=== PATIENT | male | born 1995 | race African-American/Black ===

== ENCOUNTER 2023-06-12 09:58 | Outpatient (AMB) | payer OTHER, SELFPAY ==
--- NOTE | 2023-06-12 10:06 | A.OFFPC_ITS ---
Vital Signs 06/12/23 10:20 Height 5 ft 8 in BP 120/72 Blood Pressure Location Lt brachial Position Sitting Pulse 82 Pulse Source Pulse Oximeter Pulse Oximetry (%) 100 Oxygen Delivery Method Room Air Intake Visit Reasons: est care Intake Note: Patient is here as a new patient, and to get prescription refills. Allergies No Known Allergies Allergy (Verified 06/12/23 10:07) Tobacco use date assessed: 06/12/23 Dental Screening Dental Screen Date: 06/12/23 Did you have a dental visit in the last 12 months?: Yes Did you have a dental problem in the last 6 months where you did not have access to dental care?: No Was dental information given to patient?: Patient has dentist HPI est care HPI Details New patient Prior PCP:?Angelina Soto in [place] Last office visit/CPE: 6 mos, 1 year since CPE Acute issue(s): Sleep Study via [facility] and told it was positive Migraines, more than daily. Only OTC meds. Eczema PMHx: Depression with anxiety, Back pain, migraines, Sleep apnea SurgHx: L achilles tendon rupture/repair. January 2023 FHx: Dad: DM. Mom: Arthritis. SocHx: Nonsmoker. EtOH 4x a week, 2-3 drinks. No drugs. PFSH Medical History (Updated 06/12/23 @ 11:00 by Iban Schuler) Sleep apnea Back pain Migraines Achilles tendon tear Anxiety Depression Surgical History (Updated 06/12/23 @ 10:13 by Melissa Reilly CMA) H/O Achilles tendon repair Family History (Updated 06/12/23 @ 10:15 by Melissa Reilly CMA) Mother Arthritis Father Diabetes Social History (Updated 06/12/23 @ 10:18 by Melissa Reilly CMA) Household Members: Family Housing: House Alcohol intake: current Patient Tobacco Use Status: Never used Tobacco e-Cigarette/Vaping Use: Never Used Special hari needs: Yes service: Yes Current occupational status: employed 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 1. Little interest or pleasure in doing things: more than half the days 2. Feeling down, depressed, or hopeless: not at all 3. Trouble falling or staying asleep, or sleeping too much: nearly every day 4. Feeling tired or having little energy: several days 5. Poor appetite or overeating: several days 6. Feeling bad about yourself - or that you are a failure or have let yourself or your family down: not at all 7. Trouble concentrating on things, such as reading the newspaper or watching television: more than half the days 8. Moving or speaking so slowly that other people could have noticed. Or the opposite - being so fidgety or restless that you have been moving around a lot more than usual: several days 9. Thoughts that you would be better off or of hurting yourself in some way: not at all Total score: 10 Depression Screening Interpretation: Positive Depression Screening Follow-up: Declines treatment (We?will?readdress?at?his?next?visit) Depression Screening Done: Yes 27658 - PHQ-9 Billing: Yes Source: Developed by Drs. Tejinder Li, Mariah Rosario, Yogesh Michael and colleagues, with an educational alyssa from [employer]. Thrive Questionnaire I am a: Patient What is your living situation today?: I have a steady place to live Within the past 12 months, did the food you bought not last and you didn't have the money to get more?: Never true Within the past 12 months, did you worry whether your food would run out before you got money to buy more?: Never true Do you have trouble paying for medicines?: No Do you have trouble getting transportation to medical appointments?: No Do you have trouble paying your heating and electricity bill?: No Do you have trouble taking care of your child, family member or friend?: No Do you have trouble with day-to-day activities such as bathing, preparing meals, shopping, managing finances, etc.?: No Are you currently unemployed and looking for a job?: No Are you interested in more education?: No AUDIT C Alcohol Use Questionnaire (AUDIT-C) 1. How often do you have a drink containing alcohol?: 4 or more times a week 2. How many drinks containing alcohol do you have on a typical day when you are drinking?: 3 or 4 3. How often do you have six or more drinks on one occasion?: Less than monthly Total Score: 6 ROSHNI-7 AMB Questionnaire ROSHNI-7 Date ROSHNI - 7 assessed: 06/12/23 Feeling nervous, anxious, or on edge: 2 = More than half the days Not being able to stop or control worryin = Several days Worrying too much about different things: 2 = More than half the days Trouble relaxin = More than half the days Being so restless that it is hard to sit still: 1 = Several days Becoming easily annoyed or irritable: 3 = Nearly every day Feeling afraid as if something awful might happen: 0 = Not at all Total ROSHNI-7 score (0-4 normal; 5-9 mild; 10-14 moderate; 15-21 severe): 11 Source: Developed by Drs. Tejinder Li, Mariah Rosario, Yogesh Michael and colleagues, with an educational alysas from [employer]. ROSHNI-7 Assessment Billing ROSHNI-7 Assessment Tool: ROSHNI-7 Assessment 82537 Review of Systems Const Denies chills, Denies fatigue, Denies fever(s), Denies headache(s) and Denies weakness ENT Denies dizziness and Denies headache(s) Card Denies chest pain, Denies lightheadedness, Denies dyspnea and Denies other (Palpitations) Resp Denies cough, Denies dyspnea, Denies wheezing and Denies other ( shortness of breath) Musc Denies numbness and Denies tingling Neuro Denies dizziness, Denies headache(s), Denies numbness, Denies tingling, Denies paresthesias and Denies weakness Psych Reports anxiety and Reports depression Endo Denies fatigue Aller/Immun Denies wheezing Physical exam (Primary Care) Vital Signs: Last Vital Signs Pulse 82 06/12/23 10:20 BP 120/72 06/12/23 10:20 Pulse Ox 100 06/12/23 10:20 Oxygen Delivery Method Room Air 06/12/23 10:20 Tobacco/Smoking Status: Tobacco use Status Tobacco use date assessed 06/12/23 06/12/23 10:11 Patient Tobacco Use Status Never used Tobacco 06/12/23 10:18 e-Cigarette/Vaping Use Never Used 06/12/23 10:18 PHQ-9: PHQ-9 Score PHQ-9: Total score 10 06/12/23 10:30 Depression Screening Interpretation: Positive Depression Screening Follow-up: Declines treatment (We?will?readdress?at?his?next?visit) Const General: no acute distress and well developed Nutritional Appearance: well nourished Orientation/consciousness: patient oriented x3 [facility]: Yes normocephalic and Yes atraumatic Eyes General: appearance normal, both eyes and all related structures Pupils: Equal, round and reactive pupils present EOM: EOMs intact bilaterally Resp Effort & Inspection: normal respiratory effort Auscultation: clear to auscultation bilaterally Cardio Rate: regular rate Rhythm: regular rhythm Heart sounds: S1 normal heart sound present, S2 normal heart sound present, no gallops, no murmurs and no rubs Skin Other: Rash on back of neck with mildly erythematous with a raised edge and mild scale Neuro General: patient oriented x3 and gait normal Cranial nerves: Yes Equal, round and reactive pupils present Psych Affect: normal affect Assessment and Plan Assessment & Plan (1) Depression with anxiety: Code(s): F41.8 - Other specified anxiety disorders Plan: Currently?appears?stable No?SI/HI Will?readdress?at?subsequent?visit (2) Back pain: Code(s): M54.9 - Dorsalgia, unspecified Plan: Currently?no?back?pain. Stable (3) Migraines: Code(s): G43.909 - Migraine, unspecified, not intractable, without status migrainosus Plan: Patient?is?getting?migraines?every?day?and?sometimes?more?than?once?per?day Trial?topiramate?and?will?give?him?a?script?for?sumatriptan?to?abort?migraine Also?advised?he?follow-up?with?an?thermoforming machine operator (4) Sleep apnea: Code(s): G47.30 - Sleep apnea, unspecified Plan: Patient?says?he?was?told?that?he?has?a[facility] Referred?to?Sleep?Medicine (5) Rash: Code(s): R21 - Rash and other nonspecific skin eruption Plan: Unclear?cause Advised?avoiding?excess?moisture?but?do?not?dry?out?skin Try?clotrimazole?betamethasone?and?I?have?referred?him?to?Dermatology He?can?cancel?dermatology?appointment?if?rash?resolved (6) Laboratory exam ordered as part of routine general medical examination: Code(s): Z00.00 - Encounter for general adult medical examination without abnormal findings Plan: Check?lab Orders: Orders Microalbumin, Random (w Creat) Today I10 - Essential (primary) hypertension Comprehensive [place]. Panel Fast Today Z00.00 - Encounter for general adult medical examination without abnormal findings Lipid Panel Today Z00.00 - Encounter for general adult medical examination without abnormal findings TSH reflex Free T4 Today Z00.00 - Encounter for general adult medical examination without abnormal findings UA and rflx microscopic Today Z00.00 - Encounter for general adult medical examination without abnormal findings Referrals Sleep Medicine Referral G47.30 - Sleep apnea, unspecified Dermatology Referral R21 - Rash and other nonspecific skin eruption Medications: New clotrimazole-betamethasone 1-0.05 % 1 appl topical BID 2 weeks 45 grams 1RF sumatriptan succinate take 1 tab at onset of headache; if no relief may repeat 1 tab after at least 2 hrs; max = 4 tabs/24 hr PO 12 tabs 1RF 28 days topiramate 50 mg PO DAILY 30 caps 2RF 30 days Coding Level of Care Code New Pt Level 4 (65514) Diagnoses Depression with anxiety F41.8 Back pain M54.9 Migraines G43.909 Sleep apnea G47.30 Rash R21 Laboratory exam ordered as part of routine general medical examination Z00.00 Additional Codes ROSHNI-7 Assessment Billing - ROSHNI-7 Assessment Tool: ROSHNI-7 Assessment 11015 ([id number])
[2023-06-12 10:20] VITALS: BP 120/72; PULSE 82; O2SAT 100
== END 2023-06-12 10:58 | disposition home or self-care (01) ==
PROVIDERS: Visit Provider Family Medicine
DX: F41.8 Other specified anxiety disorders (principal); M54.9 Dorsalgia, unspecified; G43.909 Migraine, unspecified, not intractable, without status migrainosus; G47.30 Sleep apnea, unspecified; R21 Rash and other nonspecific skin eruption
CPT/HCPCS: 99204

== ENCOUNTER 2023-06-12 11:01 | Outpatient (REF) | payer OTHER, SELFPAY ==
[2023-06-12 14:30] LABS: Appearance Urine Clear; Color Urine Yellow; Glucose Urine UA Negative (Negative); Leukocyte Esterase Urine Negative (Negative); Nitrite Urine Negative (Negative); PH 5.5 (5.0-9.0); Urine Blood Negative (Negative); Urine Ketones Negative (Negative); Urine Protein Negative (Neg-Trace)
[2023-06-12 14:57] LABS: Alanine Aminotransferase 31 U/L (0-40); Albumin Level 4.7 g/dL (3.5-5.0); Alkaline Phosphatase 82 U/L (39-117); Anion Gap 12 (12-20); Aspartate Amino Transferase 24 U/L (5-37); Bilirubin Total 0.3 mg/dL (0.0-1.0); Blood Urea Nitrogen 11 mg/dL (9-16); Carbon Dioxide 27 mmol/L (22-29); Chloride 104 mmol/L (96-108); Cholesterol 163 mg/dL (<200); Estimated Glomerular Filt Rate > 60; Glucose Fasting 100 mg/dL (60-99); HDL Cholesterol 49 mg/dL (>40); LDL Cholesterol Calculated 100 mg/dL (<100); Potassium 3.9 mmol/L (3.3-5.1); Sodium 139 mmol/L (135-145); Total Protein 7.8 g/dL (6.5-8.0); Triglycerides 73 mg/dL (<150)
[2023-06-12 15:06] LABS: Creatinine Urine 157.85 mg/dL; Microalbum/Creatinine Ratio Ur 4.4 ug/mg cr (<30)
[2023-06-12 15:15] LABS: TSH reflex Free T4 1.29 uIU/mL (0.32-4.0)
== END 2023-06-12 11:02 | disposition home or self-care (01) ==
LOC: HO.WFDLDS 11:01
PROVIDERS: Visit Provider Family Medicine
DX: Z00.00 Encounter for general adult medical examination without abnormal findings (principal); I10 Essential (primary) hypertension
CPT/HCPCS: 36415; 80053; 80061; 81003; 82043; 82570; 84443

== ENCOUNTER 2023-07-19 15:00 | Outpatient (AMB) | payer OTHER, SELFPAY ==
--- NOTE | 2023-07-19 15:08 | MHC.OFFVIS ---
Intake Vital Signs 07/19/23 15:11 Height 5 ft 8 in Weight 230 lb BMI 35.0 BP 128/60 Blood Pressure Location Rt brachial Pulse 48 L Pulse Source Pulse Oximeter Pulse Oximetry (%) 100 Oxygen Delivery Method Room Air Intake Visit Reasons: 06/13LVM+Letter CYG-SIG-Zpzxbfrio Allergies No Known Allergies Allergy (Verified 07/19/23 15:13) HPI HPI Comments History of Present Illness Details 27 y/o male patient presents for new in-person visit to manage sleep apnea. He was diagnosed with SEBASTIAN in October this year. The home sleep study result was significant for a mild degree of sleep apnea. The AHI was 8.4/hr and oxygen ely was 85%. However, he did not get CPAP. Pt reports snoring, gasping arousals, difficulty staying sleep. He is having daily migraine, he wakes up with migraine. Pt tried trazodone, mirtazipine and melatonin for sleep, but they did not work. Sleep hygiene questionnaire: What is your usual sleep routine? Usual bedtime is at 10 pm; Usual wake up time is at 6am. Do you take naps? No. Is your sleep environment cool, dark, and quiet? Yes. Do you exercise? Yes. Do you take caffeine or other stimulants? Yes. Do you use electronics in bed? No. What is your work schedule? 9 am to 6 pm. 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 Cognitive needs: No Hearing needs: No Vision needs: No Review of Systems Const All systems reviewed & are unremarkable except as noted in HPI and below Physical Exam Vital Signs: Last Vital Signs Pulse 48 L 07/19/23 15:11 BP 128/60 07/19/23 15:11 Pulse Ox 100 07/19/23 15:11 Oxygen Delivery Method Room Air 07/19/23 15:11 BMI result Body Mass Index 35.0 Const General: cooperative Nutritional Appearance: obese Orientation/consciousness: patient oriented x3 Neck Neck: Yes full ROM and Yes supple Resp Effort & Inspection: normal respiratory effort and able to speak in complete sentences Neuro General: patient oriented x3 and moves all extremities Cranial nerves: Yes CN's II-XII intact bilaterally Gait exam (Neuro): Normal gait present Motor exam (neuro): 5/5 motor strength present throughout, Pronator motor function not present and no tremor noted Psych Appearance: grossly normal Mental Status: mental status grossly normal Speech and movement: Normal speech and movement present Affect: normal affect Attitude: cooperative Assessment & Plan Assessment & Plan (1) Sleep apnea: Comment: Mild degree of sleep apnea. AHI was 8/hr and oxygen ely was 85% Code(s): G47.30 - Sleep apnea, unspecified Plan Advised patient to start APAP [id number]. Requested provider's note that ordered sleep study. Stressed compliance, use CPAP nightly and more than 4 hrs. Wt reduction advised. Advised patient to try Calm Sleep supplement. Coding Level of Care Code New Pt Level 3 (46162) Diagnoses Sleep apnea G47.30
[2023-07-19 15:11] VITALS: BP 128/60; PULSE 48; O2SAT 100; BMI 35.0
== END 2023-07-19 15:40 | disposition home or self-care (01) ==
PROVIDERS: PCP Family Medicine; Visit Provider Nurse Practitioner Family
DX: G47.30 Sleep apnea, unspecified (principal)
CPT/HCPCS: 99203

== ENCOUNTER → 2023-07-19 15:00 | Outpatient (BNVA) | payer OTHER, SELFPAY | PROVIDERS: PCP Family Medicine; Visit Provider Nurse Practitioner Family | DX: G47.30 Sleep apnea, unspecified (principal) | CPT/HCPCS: 99202 ==

== ENCOUNTER 2024-01-02 14:14 | Outpatient (AMB) | payer OTHER, SELFPAY ==
--- NOTE | 2024-01-02 14:19 | MHC.PC.OV ---
Vital Signs 01/02/24 14:23 Height 5 ft 7.91 in Weight 219 lb 4 oz BMI 33.4 BP 124/70 Blood Pressure Location Rt brachial Position Sitting Respiration 12 Pulse 82 Pulse Source Pulse Oximeter Pulse Oximetry (%) 99 Oxygen Delivery Method Room Air Intake Visit Reasons: CPE Intake Note: Physical. Severe migraines, rx last prescribed was denied by insurance. Allergies No Known Allergies Allergy (Verified 01/02/24 14:20) Medication List - Last Reconciled 01/02/24 by June Roman PA-C No Known Home Meds Tobacco use date assessed: 01/02/24 Dental Screening Dental Screen Date: 01/02/24 Did you have a dental visit in the last 12 months?: Yes Did you have a dental problem in the last 6 months where you did not have access to dental care?: No Was dental information given to patient?: Patient has dentist HPI CPE HPI Details Patient is a 28-year-old male who presents today for a physical exam. He has a hx of anxiety, depression, migraines, kendra, and insomnia. Psych: He states he has a hx of anxiety and depression. He states he has tried numerous medications but never felt like it was helpful. He has a hard time falling asleep and staying asleep. He would like to see a therapist. Denies any SI/HI. Pulm: follows with sleep medicine-He is compliant with cpap and no improvement of insomnia or daily headaches. He states sleep Medicine recommended melatonin for his insomnia which he finds ineffective. Neuro: Still gets frequent headaches. He states that he has 2 different types of headaches. He was supposed to try Imitrex in the fall but was never able to pick this up due to an insurance issue. He says that he has headaches almost every day and he gets migraines a few times a month. His migraines have an aura. This started about 4 years ago. He thinks [place] with [place] concussion. He denies any numbness, tingling or weakness. No nausea or vomiting. No vision changes. States that he is well hydrated and eats generally healthy. [facility] Medical History Sleep apnea Back pain Migraines Achilles tendon tear Anxiety Depression Surgical History H/O Achilles tendon repair Family History Mother Arthritis Father Diabetes Social History (Updated 01/02/24 @ 14:24 by Krissy Carrillo [facility]) Household Members: Family Housing: House Alcohol intake: current Patient Tobacco Use Status: Never used Tobacco e-Cigarette/Vaping Use: Never Used Use of substances other than those prescribed or required for medical reasons: No Special hari needs: Yes service: Yes Current occupational status: employed 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 1. Little interest or pleasure in doing things: more than half the days 2. Feeling down, depressed, or hopeless: not at all 3. Trouble falling or staying asleep, or sleeping too much: nearly every day 4. Feeling tired or having little energy: more than half the days 5. Poor appetite or overeating: more than half the days 6. Feeling bad about yourself - or that you are a failure or have let yourself or your family down: not at all 7. Trouble concentrating on things, such as reading the newspaper or watching television: more than half the days 8. Moving or speaking so slowly that other people could have noticed. Or the opposite - being so fidgety or restless that you have been moving around a lot more than usual: several days 9. Thoughts that you would be better off or of hurting yourself in some way: not at all Total score: 12 Depression Screening Interpretation: Positive Depression Screening Follow-up: Existing condition, New Medication prescribed, Community Mental Health Worker F/U and Follow-up Visit Requested Depression Screening Done: Yes 78776 - PHQ-9 Billing: Yes Source: Developed by Drs. Tejinder Li, Mariah Rosario, Yogesh Michael and colleagues, with an educational alyssa from [employer]. Thrive Questionnaire Date Thrive assessed: 01/02/24 I am a: Patient What is your living situation today?: I have a steady place to live Within the past 12 months, did the food you bought not last and you didn't have the money to get more?: Never true Within the past 12 months, did you worry whether your food would run out before you got money to buy more?: Never true Do you have trouble paying for medicines?: No Do you have trouble getting transportation to medical appointments?: No Do you have trouble paying your heating and electricity bill?: No Do you have trouble taking care of your child, family member or friend?: No Do you have trouble with day-to-day activities such as bathing, preparing meals, shopping, managing finances, etc.?: No Are you currently unemployed and looking for a job?: No Are you interested in more education?: No Please select the resources that you would like help with: None Currently or been in a relationship where the following occur: no concerns reported THRIVE Score: 0 AUDIT C Alcohol Use Questionnaire (AUDIT-C) 1. How often do you have a drink containing alcohol?: Never (None over the past two weeks) 3. How often do you have six or more drinks on one occasion?: Never Total Score: 0 Score Reviewed/Action Taken: Yes ROSHNI-7 AMB Questionnaire ROSHNI-7 Date ROSHNI - 7 assessed: 01/02/24 Feeling nervous, anxious, or on edge: 1 = Several days Not being able to stop or control worryin = More than half the days Worrying too much about different things: 2 = More than half the days Trouble relaxin = More than half the days Being so restless that it is hard to sit still: 1 = Several days Becoming easily annoyed or irritable: 2 = More than half the days Feeling afraid as if something awful might happen: 0 = Not at all Total ROSHNI-7 score (0-4 normal; 5-9 mild; 10-14 moderate; 15-21 severe): 10 Source: Developed by Drs. Tejinder Li, Mariah Rosario, Yogesh Michael and colleagues, with an educational alyssa from [employer]. ROSHNI-7 Assessment Billing ROSHNI-7 Assessment Tool: ROSHNI-7 Assessment 25324 Physical exam (Primary Care) Vital Signs: Last Vital Signs Pulse 82 01/02/24 14:23 Resp 12 01/02/24 14:23 BP 124/70 01/02/24 14:23 Pulse Ox 99 01/02/24 14:23 Oxygen Delivery Method Room Air 01/02/24 14:23 BMI result Body Mass Index 33.4 BMI Assessment/Plan discussion: High BMI High, discussed plan: lifestyle, weight reduction, dietary and physical activity Tobacco/Smoking Status: Tobacco use Status Tobacco use date assessed 01/02/24 01/02/24 14:31 Patient Tobacco Use Status Never used Tobacco 01/02/24 14:31 e-Cigarette/Vaping Use Never Used 01/02/24 14:31 PHQ-9: PHQ-9 Score PHQ-9: Total score 12 01/02/24 14:31 Depression Screening Interpretation: Positive Depression Screening Follow-up: Existing condition, New Medication prescribed, Community Mental Health Worker F/U and Follow-up Visit Requested Thrive Assessment: Date of Thrive Assessment Date Thrive assessed 01/02/24 01/02/24 14:31 Currently or been in a relationship where the following occur: no concerns reported Const Orientation/consciousness: patient oriented x3 HENMT Ears: hearing grossly normal bilaterally and TM's normal bilaterally General nose exam: No nasal polyps present Face and sinus: Yes sinuses nontender Mouth: Normal oral and palatal mucosa present Eyes Pupils: Equal, round and reactive pupils present EOM: EOMs intact bilaterally Neck Neck: Yes full ROM and Yes no lymphadenopathy Thyroid: Thyroid normal Chest Chest palpation & inspection: normal inspection of the chest Resp Auscultation: clear to auscultation bilaterally Cardio Rate: regular rate Rhythm: regular rhythm Heart sounds: S1 normal heart sound present and S2 normal heart sound present Peripheral pulses: Peripheral pulses 2+ throughout GI Other: Soft, nontender Auscultation: normal bowel sounds Rectal Exam - Male: Yes deferred General: Yes no CVA tenderness Back/Spine/Pelvis Other: Nontender Back: no CVA tenderness Skin General skin exam: no rashes or lesions noted Neuro General: patient oriented x3, gait normal, CN's II-XI intact bilaterally and deep tendon reflexes 2+ bilaterally Cranial nerves: Yes Equal, round and reactive pupils present Motor exam (neuro): 5/5 motor strength present throughout Sensory Exam: double simultaneous stimulation for sensation normal Coordination: [id number] test normal and Romberg test negative Extrem General: Yes normal to inspection and Yes full ROM Psych Affect: normal affect Attitude: cooperative Thought process: Normal thought process present Thought content: Normal thought content present Insight: Good insight present (Psych) Judgement: Good judgement present (Psych) Results Reviewed Results Reviewed: Laboratory Tests 11/07/23 11:00 Sodium 139 Potassium 3.9 Chloride 104 Carbon Dioxide 27 Anion Gap 12 BUN 11 Creatinine 1.04 Estimated GFR > 60 Fasting Glucose 100 H Calcium 10.0 Total Bilirubin 0.3 AST 24 ALT 31 Triglycerides 73 Cholesterol 163 LDL Cholesterol, Calc 100 H HDL Cholesterol 49 TSH 1.29 Assessment and Plan Assessment & Plan (1) Routine general medical examination at a health care facility: Code(s): Z00.00 - Encounter for general adult medical examination without abnormal findings Plan: Health maintenance reviewed. Last labs reviewed. Paperwork filled out today for the . (2) Frequent headaches: Code(s): R51.9 - Headache, unspecified Plan: Advised to get an eye exam. We will try amitriptyline as a preventative/insomnia med. Imitrex ordered to use as needed for an abortive medicine. We discussed risks and benefits and adverse effects of these medications. (3) Depression with anxiety: Code(s): F41.8 - Other specified anxiety disorders Plan: Referral to [facility]. Phone number provided. (4) IFG (impaired fasting glucose): Code(s): R73.01 - Impaired fasting glucose Plan: Reviewed last labs. A1c ordered. Denies any polyuria or polydipsia. Orders: Orders MR head/brain wo con Today G43.109 - Migraine with aura, not intractable, without status migrainosus, R51.9 - Headache, unspecified Hemoglobin A1c Today R73.01 - Impaired fasting glucose Referrals Behavioral Health Referral F41.8 - Other specified anxiety disorders Medications: New amitriptyline 10 mg PO BEDTIME 90 tabs 1RF sumatriptan succinate (Imitrex) take 1 tab at onset of headache; if no relief may repeat 1 tab after at least 2 hrs; max = 4 tabs/24 hr PO 10 tabs 2RF Coding Level of Care Code Est Pt Prev Care 18-39y(42922) Diagnoses Routine general medical examination at a health care facility Z00.00 Frequent headaches R51.9 Depression with anxiety F41.8 IFG (impaired fasting glucose) R73.01 Additional Codes ROSHNI-7 Assessment Billing - ROSHNI-7 Assessment Tool: ROSHNI-7 Assessment 92045 ([id number])
[2024-01-02 14:23] VITALS: BP 124/70; PULSE 82; RESP 12; O2SAT 99; BMI 33.4
== END 2024-01-02 15:16 | disposition home or self-care (01) ==
PROVIDERS: PCP Family Medicine; Visit Provider Physician Assistant
DX: Z00.00 Encounter for general adult medical examination without abnormal findings (principal); R51.9 Headache, unspecified; F41.8 Other specified anxiety disorders; R73.01 Impaired fasting glucose
CPT/HCPCS: 96127; 99395

== ENCOUNTER 2024-01-23 20:02 | Outpatient (REF) | payer OTHER, SELFPAY ==
--- NOTE | ~2024-01-23 | MR_ITS ---
EXAMINATION: MR BRAIN WITHOUT CONTRAST CLINICAL INFORMATION: Migraine COMPARISON: None TECHNIQUE: Multiplanar multisequence MR imaging of the brain was obtained without intravenous contrast. FINDINGS: There is no acute infarct on diffusion-weighted imaging. There is no intracranial hemorrhage on iron-sensitive imaging. No extra-axial collection or mass effect/herniation. Normal parenchymal signal characteristics. No hydrocephalus. The ventricles are normal in morphology and size. Cavum septum pellucidum et vergae The major flow voids at the skull base are preserved. The midline structures are normal. The cerebellar tonsils are normally positioned. The craniocervical junction is normal. Marrow signal is within normal limits. The visualized soft tissues are without significant abnormality. Retention cyst and mucosal thickening in the inferior left maxillary sinus. Trace ethmoid and left frontal sinus mucosal thickening. MR/MR head/brain wo con IMPRESSION: Unremarkable noncontrast MRI of the brain.
== END 2024-01-23 20:03 | disposition home or self-care (01) ==
LOC: HO.MRI 20:02
PROVIDERS: PCP Family Medicine; Visit Provider Physician Assistant
DX: G43.109 Migraine with aura, not intractable, without status migrainosus (principal)
CPT/HCPCS: 70551

== ENCOUNTER 2024-01-24 13:40 | Outpatient (AMB) | payer OTHER, SELFPAY ==
--- NOTE | 2024-01-24 13:50 | MHC.PC.OV ---
Vital Signs 01/24/24 13:51 Height 5 ft 7.91 in Weight 220 lb 4 oz BMI 33.6 BP 118/56 L Blood Pressure Location Rt radial Position Sitting Respiration 12 Pulse 80 Pulse Source Pulse Oximeter Pulse Oximetry (%) 96 Oxygen Delivery Method Room Air Intake Visit Reasons: 3-4 week F/U Migraines Intake Note: Follow up migraines. Couple episodes of elevated heart rate. Last episode was on Sunday. 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 MRI was done yesterday. results pending. He was started on amitriptyline as a preventative for headaches and he feels like this has been helpful but he still does get headaches. He has only had to use Imitrex a few times. Denies any adverse effects of the medication. Does not feel groggy in the morning. He does have an appointment with behavioral health in March for anxiety. Denies any SI/HI. No recent life changes. He is usually able to use breathing techniques to keep his anxiety under control. 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 Tejinder Li, Mariah Rosario, Yogesh Michael and colleagues, with an educational alyssa from [employer]. Physical exam (Primary Care) Vital Signs: Last Vital Signs Pulse 80 01/24/24 13:51 Resp 12 01/24/24 13:51 BP 118/56 L 01/24/24 13:51 Pulse Ox 96 01/24/24 13:51 Oxygen Delivery Method Room Air 01/24/24 13:51 BMI result Body Mass Index 33.6 Tobacco/Smoking Status: Tobacco use Status Tobacco use date assessed 01/02/24 01/24/24 13:58 Patient Tobacco Use Status Never used Tobacco 01/24/24 13:58 e-Cigarette/Vaping Use Never Used 01/24/24 13:58 Thrive Assessment: Date of Thrive Assessment Date Thrive assessed 01/02/24 01/24/24 13:58 Const Orientation/consciousness: patient oriented x3 HENMT Ears: hearing grossly normal bilaterally Neck Thyroid: Thyroid normal Lymphatic: no lymphadenopathy noted Resp Auscultation: clear to auscultation bilaterally Cardio Rate: regular rate Rhythm: regular rhythm Heart sounds: S1 normal heart sound present and S2 normal heart sound present GI Inspection: Yes normal to inspection Palpation (GI): Soft to palpation and Other GI palpation findings present (nontender, no cva tenderness) Auscultation: normoactive bowel sounds Rectal Exam - Male: Yes deferred Skin General skin exam: no rashes or lesions noted Neuro General: patient oriented x3, gait normal and no focal motor deficits Assessment and Plan Assessment & Plan (1) Frequent headaches: Code(s): R51.9 - Headache, unspecified Plan: Increase amitriptyline. Follow up in 3 months. Sooner if needed. (2) Depression with anxiety: Code(s): F41.8 - Other specified anxiety disorders Plan: As above. Advised to follow up with behavioral health. Patient has appointment booked. He will follow up sooner if anything worsens or changes. Patient understands and agrees with the plan. Medications: New amitriptyline 25 mg PO BEDTIME 90 tabs 1RF Coding Level of Care Code Est Pt Level 4 (98973) Diagnoses Frequent headaches R51.9 Depression with anxiety F41.8
[2024-01-24 13:51] VITALS: BP 118/56; PULSE 80; RESP 12; O2SAT 96; BMI 33.6
== END 2024-01-24 14:40 | disposition home or self-care (01) ==
PROVIDERS: PCP Family Medicine; Visit Provider Physician Assistant
DX: R51.9 Headache, unspecified (principal); F41.8 Other specified anxiety disorders
CPT/HCPCS: 99214

== ENCOUNTER 2024-04-30 08:35 | Outpatient (AMB) | payer OTHER, SELFPAY ==
--- NOTE | 2024-04-30 08:45 | MHC.PC.OV ---
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 Neuro: He states that he still gets headaches every day. They very and degree of intensity. It is mostly across the front of his head from yarsani to yarsani. He wakes up with the headaches and it does sometimes worsen as the day goes on. He does not get a lot of sleep at night. This is partially from insomnia and from his sleep apnea. He is supposed to follow with sleep medicine for his sleep apnea but states that they canceled 2 appointments on him and now he is not booked until October. He did have the CPAP machine but was unable to tolerate the mask. He says that they were supposed to discuss a potential alternative. He does not think he is not sleeping because of the sleep apnea but more because of the insomnia. He has not had a recent vision test. He did have an MRI which was normal. He states that the amitriptyline was working initially to help a little bit with the sleep and the frequency of headaches but does not feel like it has been working. 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 1. Little interest or pleasure in doing things: more than half the days 2. Feeling down, depressed, or hopeless: several days 3. Trouble falling or staying asleep, or sleeping too much: nearly every day 4. Feeling tired or having little energy: several days 5. Poor appetite or overeating: several days 6. Feeling bad about yourself - or that you are a failure or have let yourself or your family down: several days 7. Trouble concentrating on things, such as reading the newspaper or watching television: several days 8. Moving or speaking so slowly that other people could have noticed. Or the opposite - being so fidgety or restless that you have been moving around a lot more than usual: not at all 9. Thoughts that you would be better off or of hurting yourself in some way: not at all Total score: 10 Source: Developed by Drs. Tejinder Li, Mariah Rosario, Yogesh Michael and colleagues, with an educational alyssa from [employer]. Thrive Questionnaire Date Thrive assessed: 01/02/24 I am a: Patient What is your living situation today?: I have a steady place to live Within the past 12 months, did the food you bought not last and you didn't have the money to get more?: Never true Within the past 12 months, did you worry whether your food would run out before you got money to buy more?: Never true Do you have trouble paying for medicines?: No Do you have trouble getting transportation to medical appointments?: Yes Do you have trouble paying your heating and electricity bill?: No Do you have trouble taking care of your child, family member or friend?: No Do you have trouble with day-to-day activities such as bathing, preparing meals, shopping, managing finances, etc.?: No Are you currently unemployed and looking for a job?: No Are you interested in more education?: No Please select the resources that you would like help with: None Currently or been in a relationship where the following occur: No concerns reported THRIVE Score: 1 AUDIT C Alcohol Use Questionnaire (AUDIT-C) 1. How often do you have a drink containing alcohol?: 2-3 times a week 2. How many drinks containing alcohol do you have on a typical day when you are drinking?: 3 or 4 3. How often do you have six or more drinks on one occasion?: Less than monthly Total Score: 5 ROSHNI-7 AMB Questionnaire ROSHNI-7 Date ROSHNI - 7 assessed: 01/02/24 Feeling nervous, anxious, or on edge: 2 = More than half the days Not being able to stop or control worryin = Several days Worrying too much about different things: 2 = More than half the days Trouble relaxin = More than half the days Being so restless that it is hard to sit still: 2 = More than half the days Becoming easily annoyed or irritable: 2 = More than half the days Feeling afraid as if something awful might happen: 0 = Not at all Total ROSHNI-7 score (0-4 normal; 5-9 mild; 10-14 moderate; 15-21 severe): 11 Source: Developed by Drs. Tejinder Li, Mariah Rosario, Yogesh Michael and colleagues, with an educational alyssa from [employer]. Physical exam (Primary Care) Vital Signs: Last Vital Signs Pulse 79 04/30/24 08:47 BP 114/82 04/30/24 08:47 Pulse Ox 99 04/30/24 08:47 Oxygen Delivery Method Room Air 04/30/24 08:47 BMI result Body Mass Index 33.3 Tobacco/Smoking Status: Tobacco use Status Tobacco use date assessed 01/02/24 04/30/24 08:50 Patient Tobacco Use Status Never used Tobacco 04/30/24 08:50 e-Cigarette/Vaping Use Never Used 04/30/24 08:50 PHQ-9: PHQ-9 Score PHQ-9: Total score 10 04/30/24 09:02 Thrive Assessment: Date of Thrive Assessment Date Thrive assessed 01/02/24 04/30/24 08:50 Currently or been in a relationship where the following occur: No concerns reported Const Orientation/consciousness: patient oriented x3 HENMT Ears: hearing grossly normal bilaterally Neck Thyroid: Thyroid normal Lymphatic: no lymphadenopathy noted Resp Auscultation: clear to auscultation bilaterally Cardio Rate: regular rate Rhythm: regular rhythm Heart sounds: S1 normal heart sound present and S2 normal heart sound present GI Inspection: Yes normal to inspection Palpation (GI): Soft to palpation and Other GI palpation findings present (nontender, no cva tenderness) Auscultation: normoactive bowel sounds Rectal Exam - Male: Yes deferred Skin General skin exam: no rashes or lesions noted Neuro General: patient oriented x3, gait normal and no focal motor deficits Results Reviewed Results Reviewed: MR/MR head/brain wo con IMPRESSION: Unremarkable noncontrast MRI of the brain. Assessment and Plan Assessment & Plan (1) Frequent headaches: Code(s): R51.9 - Headache, unspecified Plan: We will increase amitriptyline. I have referred him to Neurology. He will follow up if anything worsens or changes sooner otherwise, 2 months for a physical exam and a recheck of headaches. Orders: Referrals Neurology Referral R51.9 - Headache, unspecified Medications: New amitriptyline 50 mg PO BEDTIME 90 tabs 1RF Refilled sumatriptan succinate (Imitrex) take 1 tab at onset of headache; if no relief may repeat 1 tab after at least 2 hrs; max = 4 tabs/24 hr PO 10 tabs 2RF Coding Level of Care Code Est Pt Level 3 (15597) Diagnoses Frequent headaches R51.9
[2024-04-30 08:47] VITALS: BP 114/82; PULSE 79; O2SAT 99; BMI 33.3
== END 2024-04-30 09:24 | disposition home or self-care (01) ==
PROVIDERS: PCP Family Medicine; Visit Provider Physician Assistant
DX: R51.9 Headache, unspecified (principal)

== ENCOUNTER → 2024-04-30 08:35 | Outpatient (BNVA) | payer OTHER, SELFPAY | PROVIDERS: PCP Family Medicine; Visit Provider Physician Assistant | DX: R51.9 Headache, unspecified (principal) | CPT/HCPCS: 99212 ==

== ENCOUNTER 2024-07-08 15:27 | Outpatient (REF) | payer OTHER, SELFPAY ==
[2024-07-09 05:03] LABS: Syphilis Screen Nonreactive (Nonreactive)
[2024-07-09 05:20] LABS: HBS Num1 26.56 mIU/mL (0-7.99); HBc Num1 0.11 S/CO (0.00-0.79); HBsAGNum1 0.49 S/CO (0.00-0.99); HIV AB/AG Nonreactive (Nonreactive); HIV Num 1 0.12 S/CO (0.00-0.99); Hepatitis B Core Antibody Nonreactive (Nonreactive); Hepatitis B Surface Antigen Negative (Negative); ~HepC Num1 0.15 S/CO (0.00-0.79); ~Hepatitis B Surface Antibody REACTIVE (Nonreactive); ~Hepatitis C Antibody Nonreactive (Nonreactive)
[2024-07-09 17:54] LABS: Herpes Simplex Type 2 IgG <0.90 index
--- OUTSIDE RECORDS SUMMARY | 2024-07-15 15:17 | XMS_ITS | Continuity of Care Document ---
Author Name [facility] Organization [facility] Care Team Providers Care Warm In Worker Name Role Phone [facility] Unavailable Unavailable Problems Combined list of problems from Department of Defense and Veterans Affairs facilities. It does not include entries that were removed or entered in error. 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 22 Condition [facility]D Pain in left finger(s) Inactive 06/03/20 20 Condition [facility] Nondisplaced fracture of proximal phalanx of right little finger Active 11/29/19 19 Condition [facility] Anthrax Vaccine, For Subcutaneous Use Inactive 11/08/19 18 Condition [facility] visit for: services physical Inactive 05/10/20 17 Condition [facility] Rupture of left Achilles tendon Active Condition [facility] Medications Combined list of outpatient medications from Department of Defense and Veterans Affairs facilities.Medications provided include 1) outpatient medications from the last 15 months, and 2) patient-reported medications. Medication Details Route Status Patient Instructions Prescription Expires Prescription Number Last Dispense Date Ordering Provider Order Date Order Qty Source AMITRIPTYLI NE HCL (amitriptyl ine HCl), 10 MG, TABLET, ORAL, ZYDUS PHARMACEU, 100 ea. BOTTLE Active [id number] 2023 90 Pharmac y Data Transac tion Service Facilit y AMITRIPTYLI NE HCL (amitriptyl ine HCl), 25 MG, TABLET, ORAL, ZYDUS PHARMACEU, 1000 ea. BOTTLE Active [id number] 2023 90 Pharmac y Data Transac tion Service Facilit y escitalopra m 20 mg oral tablet 90 EA, 0 Refill(s ), TAKE 1/2 TABLET BY MOUTH EVERY DAY FOR 2 WEEKS THEN INCREASE TO TABLET DAILY, 0 total refill(s ), Soft Stop Ordered [facility] KETOCONAZOL E (ketoconazo le), 2 %, CREAM (G), TOPICAL, TEVA [place], 60 g TUBE Active [id number] 2023 60 Pharmac y Data Transac tion Service Facilit y meloxicam 15 mg oral tablet 1 tab(s), Oral, Daily, # 30 tab(s), 0 total refill(s ), Maintena nce Oral (given by mouth) Ordered 30.0 [facility] ondansetron 4 mg oral tablet 21 EA, 0 Refill(s ), TAKE 1 TABLET BY MOUTH EVERY 8 HOURS NEEDED FOR NAUSEA, 0 total refill(s ), Soft Stop Discont inued 05/16/2023 [facility] ONDANSETRON ODT (ONDANSETRO N), 4 MG, TAB RAPDIS, ORAL, AUROBINDO PHARM, 30 ea. BLIST PACK Cancele d [id number] : 2023 0 Pharmac y Data Transac tion Service Facilit y oxyCODONE 5 mg oral tablet 30 EA, 0 Refill(s ), TAKE 1 TABLET BY MOUTH EVERY 4 TO 6 HOURS NEEDED FOR PAIN SEVERE. DO NOT DRIVE, 0 total refill(s ), Soft Stop Discont inued 05/16/2023 [facility] SUMATRIPTAN SUCCINATE (sumatripta n succinate), 25 MG, TABLET, ORAL, Ceph[employer]ics., 9 ea. BLIST PACK Active [id number] 2023 10 Pharmac y Data Transac tion Service Facilit y Allergies, Adverse Reactions, Alerts Combined list of allergies from Department of Defense and Veterans Affairs facilities. It does not include entries that were removed or entered in error. Substance Category Reaction Severity Reaction type Status Date Reported Comments Source No Known Allergies Drug allergy (disorder) active 9 [facility] Immunizations Combined list of available immunizations from the Department of Defense and Veterans Affairs facilities. Immunization Series Date Given Administered By Site Reaction Lot Number CVX Code Drug Environmental Health Nurse Status Comments Source COVID Vaccine Moderna 2021 [id number] 207 complet ed COVID Vaccine Moderna 01/20/22 Given Ambulat ory Pharmac y COVID-19, mRNA, LNP-S, PF, 100 mcg or 50 mcg dose 2021 RAZO, () Not Given COVID-19, mRNA, LNP-S, PF, 100 mcg or 50 mcg dose DoD influenza, injectable, quadrivalent- pf 2020 [id number] 150 Seqirus complet ed influenza , injectabl e, quadrival ent-pf 05/27/21 Given Ambulat ory Pharmac y influenza, injectable, quadrivalent- pf 2020 [id number] 150 Seqirus complet ed influenza , injectabl e, quadrival ent-pf 05/27/21 Given Ambulat ory Pharmac y Influenza, injectable, quadrivalent, preservative free 0 2020 [id number] 150 Seqirus (SEQ) complet ed Influenza , injectabl e, quadrival ent, preservat enma free DoD typhoid Vi capsular polysaccharid e vac 2020 [id number] 101 sanofi pasteur complet ed typhoid Vi capsular polysacch aride vac 12/11/20 Given Ambulat ory Pharmac y yellow fever vaccine 2020 [id number] 37 sanofi pasteur complet ed yellow fever vaccine 12/11/20 Given Ambulat ory Pharmac y meningococcal A,C,Y,W-135 (MCV4P) 2020 [id number] 114 sanofi pasteur complet ed meningoco ccal A,C,Y,W-1 35 (MCV4P) 12/11/20 Given Ambulat ory Pharmac y yellow fever vaccine 2020 [id number] 37 sanofi pasteur complet ed yellow fever vaccine 12/11/20 Given Ambulat ory Pharmac y typhoid Vi capsular polysaccharid e vac 2020 [id number] 101 sanofi pasteur complet ed typhoid Vi capsular polysacch aride vac 12/11/20 Given Ambulat ory Pharmac y meningococcal A,C,Y,W-135 (MCV4P) 2020 [id number] 114 sanofi pasteur complet ed meningoco ccal A,C,Y,W-1 35 (MCV4P) 12/11/20 Given Ambulat ory Pharmac y yellow fever vaccine 0 2020 [id number] 37 Sanofi Pasteur (PMC) complet ed yellow fever vaccine DoD typhoid Vi capsular polysaccharid e vaccine 2 2020 [id number] 101 Sanofi Pasteur (PMC) complet ed typhoid Vi capsular polysacch aride vaccine DoD meningococcal polysaccharid e (groups A, C, Y and W-135) diphtheria toxoid conjugate vaccine (MCV4P) 0 2020 [id number] 114 Sanofi Pasteur ([facility]) complet ed meningoco ccal polysacch aride (groups A, C, Y and W-135) diphtheri a toxoid conjugate vaccine (MCV4P) DoD COVID Vaccine Moderna 2020 [id number] complet ed COVID Vaccine Moderna 10/24/20 Given Ambulat ory Pharmac y SARS-COV-2 (COVID-19) vaccine, mRNA, spike protein, LNP, preservative free, 100 mcg or 50 mcg dose 2 2020 [id number] 207 Moderna [place], Inc. (MOD) complet ed SARS-COV- 2 (COVID-19 ) vaccine, mRNA, spike protein, LNP, preservat enma free, 100 mcg or 50 mcg dose DoD COVID Vaccine Moderna 2020 [id number] 207 complet ed COVID Vaccine Moderna 09/24/20 Given Ambulat ory Pharmac y COVID Vaccine Moderna 2020 zzLef t Arm [id number] 207 complet ed COVID Vaccine Moderna 09/24/20 Given Ambulat ory Pharmac y SARS-COV-2 (COVID-19) vaccine, mRNA, spike protein, LNP, preservative free, 100 mcg or 50 mcg dose 1 2020 LINCOLN SEGURA [id number] 207 Moderna [place], Inc. (MOD) complet ed SARS-COV- 2 (COVID-19 ) vaccine, mRNA, spike protein, LNP, preservat enma free, 100 mcg or 50 mcg dose DoD influenza, injectable, quadrivalent 2019 [id number] 167 158 Seqirus complet ed influenza , injectabl e, quadrival ent 05/25/20 Given Ambulat ory Pharmac y influenza, injectable, quadrivalent 2019 [id number] 167 158 Seqirus complet ed influenza , injectabl e, quadrival ent 05/25/20 Given Ambulat ory Pharmac y influenza, injectable, quadrivalent, contains preservative 0 2019 [id number] 167 158 Seqirus (SEQ) complet ed influenza , injectabl e, quadrival ent, contains preservat enma DoD typhoid Vi capsular polysaccharid e vac 2018 (C) [id number] 101 sanofi pasteur complet ed typhoid Vi capsular polysacch aride vac 03/24/19 Given Ambulat ory Pharmac y typhoid Vi capsular polysaccharid e vac 2018 C [id number] 101 sanofi pasteur complet ed typhoid Vi capsular polysacch aride vac 03/24/19 Given Ambulat ory Pharmac y typhoid Vi capsular polysaccharid e vaccine 1 2018 C [id number] 101 Sanofi Pasteur (PMC) complet ed typhoid Vi capsular polysacch aride vaccine DoD influenza, injectable, quadrivalent 2017 [id number] 158 GlaxoSmithK[employer] ne complet ed influenza , injectabl e, quadrival ent 07/24/18 Given Ambulat ory Pharmac y influenza, injectable, quadrivalent, contains preservative 0 2017 [id number] 158 [facility] influenza , injectabl e, quadrival ent, contains preservat enma DoD anthrax vaccine 2017 [id number] 24 [employer] complet ed anthrax vaccine 12/05/17 Given Ambulat ory Pharmac y anthrax vaccine 2017 [id number] 24 [employer] complet ed anthrax vaccine 12/05/17 Given Ambulat ory Pharmac y anthrax vaccine 2 2017 [id number] 24 [employer] [place] (MIP) complet ed anthrax vaccine DoD anthrax vaccine 2017 [id number] 24 [employer] complet ed anthrax vaccine 11/07/17 Given Ambulat ory Pharmac y anthrax vaccine 1 2017 [id number] 24 [employer] Edith (MIP) complet ed anthrax vaccine DoD measles and rubella virus vaccine 0 2016 04 () Not Given measles and rubella virus vaccine DoD hepatitis B vaccine, pediatric or pediatric/ado lescent dosage 0 2016 08 () Not Given hepatitis B vaccine, pediatric or pediatric /adolesce nt dosage DoD varicella virus vaccine 0 2016 21 () Not Given varicella virus vaccine DoD hepatitis A vaccine, adult dosage 0 2016 52 () Not Given hepatitis A vaccine, adult dosage DoD influenza, injectable, quadrivalent 10/27/ 2017 [id number] 158 Seqirus complet ed influenza , injectabl e, quadrival ent 06/01/17 Given Ambulat ory Pharmac y influenza, injectable, quadrivalent [id number] 158 Seqirus complet ed influenza , injectabl e, quadrival ent 06/01/17 Given Ambulat ory Pharmac y influenza, injectable, quadrivalent, contains preservative 0 2016 [id number] 158 Seqirus (SEQ) comple t ed influenza , injectabl e, quadrival ent, contains preservat enma DoD poliovirus vaccine, inactivated 2016 [id number] 10 sanofi pasteur complet ed polioviru s vaccine, inactivat ed 09/26/16 Given Ambulat ory Pharmac y poliovirus vaccine, inactivated 2016 zzLef t Arm [id number] 10 sanofi pasteur complet ed polioviru s vaccine, inactivat ed 09/26/16 Given Ambulat ory Pharmac y poliovirus vaccine, inactivated 1 2016 NABEEL GOMEZ [id number] 10 Sanofi Pasteur ([facility]) complet ed polioviru s vaccine, inactivat ed DoD measles and rubella virus vaccine 0 2016 04 () Not Given measles and rubella virus vaccine DoD hepatitis B vaccine, pediatric or pediatric/ado lescent dosage 0 2016 08 () Not Given hepatitis B vaccine, pediatric or pediatric /adolesce nt dosage DoD varicella virus vaccine 0 2016 21 () Not Given varicella virus vaccine DoD hepatitis A vaccine, adult dosage 0 2016 52 () Not Given hepatitis A vaccine, adult dosage DoD tuberculin purified protein derivative 2016 zzLef t Arm [id number] 96 sanofi pasteur complet ed Patient Tolerance : Negative Ambulat ory Pharmac y tuberculin skin test; purified protein derivative solution, intradermal 0 2016 ZACHAIRAH SALTER [id number] 96 Sanofi Pasteur (PMC) complet ed tuberculi n skin test; purified protein derivativ e solution, intraderm al DoD influenza, seasonal, injectable-pf 2016 [id number] 140 Seqirus complet ed influenza , seasonal, injectabl e-pf 08/23/16 Given Ambulat ory Pharmac y tetanus, diphtheria, acellular pertu is 2016 [id number] 115 Unknown complet ed tetanus, diphtheri a, acellular pertussis 08/23/16 Given Ambulat ory Pharmac y adenovirus vaccine, live 2016 [id number] 6 143 Unknown complet ed adenoviru s vaccine, live 08/23/16 Given Ambulat ory Pharmac y influenza, seasonal, injectable-pf 2016 zzLef t Arm [id number] 140 Seqirus complet ed influenza , seasonal, injectabl e-pf 08/23/16 Given Ambulat ory Pharmac y meningococcal A,C,Y,W-135 (MCV4P) 2016 zzLef t Arm [id number] 114 sanofi pasteur complet ed meningoco ccal A,C,Y,W-1 35 (MCV4P) 08/23/16 Given Ambulat ory Pharmac y tetanus, diphtheria, acellular [id number] Unknown complet ed tetanus, diphtheri a, acellular pertussis 08/23/16 Given Ambulat ory Pharmac y adenovirus vaccine, live 2016 [id number] 6 143 Unknown complet ed adenoviru s vaccine, live 08/23/16 Given Ambulat ory Pharmac y meningococcal polysaccharid e (groups A, C, Y and W-135) diphtheria toxoid conjugate vaccine (MCV4P) 1 2016 WILL INGRAM [id number] 114 Sanofi Pasteur (PMC) complet ed meningoco ccal polysacch aride (groups A, C, Y and W-135) diphtheri a toxoid conjugate vaccine (MCV4P) DoD tetanus toxoid, reduced diphtheria toxoid, and acellular pertu is vaccine, adsorbed 1 2016 WILL INGRAM [id number] 115 Other (OTH) complet ed tetanus toxoid, reduced diphtheri a toxoid, and acellular pertussis vaccine, adsorbed DoD Influenza, seasonal, injectable, preservative free 1 2016 WILL INGRAM [id number] 140 Seqirus (SEQ) complet ed Influenza , seasonal, injectabl e, preservat enma free DoD Adenovirus, type 4 and type 7, live, oral 1 2016 WILL INGRAM [id number] 6 143 Other (OTH) complet ed Adenoviru s, type 4 and type 7, live, oral DoD Vital Signs Combined list of inpatient and outpatient Vital Signs from Department of Defense and Veterans Affairs, ranging from 12 months to all on record, depending upon the facility. Vital Sign Value Date Comments Source Systolic Blood Pressure 131mm[Hg] 04/25/2023 16:41:00 Ambulatory Pharmacy Diastolic Blood Pressure 85mm[Hg] 04/25/2023 16:41:00 Ambulatory Pharmacy Mean Arterial Pressure, Calc 100mm[Hg] 04/25/2023 16:41:00 Ambulatory P harmacy Peripheral Pulse Rate 90bpm 04/25/2023 16:41:00 Ambulatory Pharmacy Respiratory Rate 16br/min 04/25/2023 16:41:00 Ambulatory Pharmacy BP Site 04/25/2023 16:41:00 Ambul at[facility] Pharmacy Blood Pressure Manual 04/25/2023 16:41:00 Ambulatory Pharmacy Encounters Combined list of: 1) Encounters from Department of Veterans Affairs facilities going back up to thelast 18 months. 2) Encounters from the Department of [employer] facilities going back up to 280 months. Location Location Details Encounter Type Encounter Number Reason For Visit Attending Provider ADM Date DC Date Status Disposition Source One or More A Facilitie s DOPE EDGER History 08/06 One or More A Facilit ies DOPE EDGER [facility](Au diology [facility] 1523) OUTPATIENT [id number] SOL BAHENA 08/22 Released w/o Limitations [facility]( Audiolo gy [facility] 1523) [facility](Op tometry [facility] 1523) OUTPATIENT [id number] NEDRA BELTRAN 08/22 Released w/o Limitations [facility]( Optomet ry [facility] 1523) [facility](We [facility] Male) OUTPATIENT [id number] Notes Entered by: RUDDY ALMARAZ 23 Aug 2016 1305 ------- ------- ------- ------- -- [facility] w[facility]( [facility] Male) [facility](Im munizatio n 1523) OUTPATIENT [id number] Notes Entered by: WILL INGRAM 23 Aug 2016 1653 ------- ------- ------- ------- -- P4 Immuniz ations ELLIE MISHRA Yessi 08/23 Released w/o Limitations [facility]( Immuniz ation 1523) [facility](Pr ev Med Immunizat ions/237) OUTPATIENT [id number] Notes Entered by: ZACHARIAH SALTER 29 Aug 2016 1406 ------- ------- ------- ------- -- TST PPD TB Testing ARDONJENNIFER 08/29 Released w/o Limitations [facility]( Prev Med Immuniz ations/ 237) [facility](Ho nor (Red) 1007) OUTPATIENT [id number] Notes Entered by: СЕРГЕЙ ROBERTS 26 Sep 2016 1102 ------- ------- ------- ------- -- VERNON Harmon 09/26 Released w/o Limitations [facility]( [place] (Red) 1007) [facility](Emergen cy Medicine NMCP) OUTPATIENT [id number] EDEN ASHFORD 01/18 Released w/o Limitations [facility](Mercedes rgency Medicin e NMCP) Theater Facility OUTPATIENT [id number] Theater Provider 05/10 Released w/o Limitations Theater Facilit y [facility](Hearing Cons [place]) OUTPATIENT [id number] Notes Entered by: JANNETH EVANS 09 Oct 2017 1451 ------- ------- ------- ------- -- Annual JAC EVANS 10/09 Released w/o Limitations [facility](Hea ring Cons [place]) Theater Facility OUTPATIENT [id number] Theater Provider 11/07 Released w/o Limitations Theater Facilit y [facility](Emergen cy Medicine NMCP) OUTPATIENT [id number] CANDICE ESCALANTE 11/20 Released w/o Limitations [facility](Mercedes rgency Medicin e NMCP) [facility](Acute Care Ortho NMCP) OUTPATIENT [id number] Notes Entered by: KESHAV WEAVER 20 Nov 2018 0415 ------- ------- ------- ------- -- right small finger fractur e WAQAR ROBLEDO 11/20 Released with Work/Duty Limitations [facility](Acu te Care Ortho NMCP) [facility](Hand Surg NMCP) OUTPATIENT [id number] tracker right small finger fx MIRIAM KIM 11/28 Released with Work/Duty Limitations [facility](Fung d Surg NMCP) [facility](Hand Surg NMCP) OUTPATIENT [id number] f/u visit on rt.MIRIAM GONZALEZ 12/19 Released with Work/Duty Limitations [facility](Fung d Surg NMCP) [facility](Occupat ional Therapy Hand Clinic NMCP) OUTPATIENT [id number] MARY Garcia 12/19 Released w/o Limitations [facility](Occ upation al Therapy Hand Clinic NMCP) [facility](Hearing Cons [place] Sta) OUTPATIENT [id number] BRITTNI SALDANA 12/20 Released w/o Limitations [facility](Hea ring Cons [place]) [facility](Optomet ry [place]) OUTPATIENT [id number] EYE EXAM KESHAV CAI 01/09 Released w/o Limitations [facility](Opt ometry [place]) [facility](Hand Surg NMCP) OUTPATIENT [id number] f/u right MIRIAM GONZALEZ 02/27 Released w/o Limitations [facility](Fung d Surg NMCP) [facility] NavSta T2) OUTPATIENT [id number] LUIS Denise 05/28 Released w/o Limitations [facility] [place] (Hearing Cons [place] [facility]) OUTPATIENT [id number] BRITTNI SALDANA 01/06 Released w/o Limitations [facility] [place] [facility]) [facility](Hearing Cons [place] [facility]) OUTPATIENT [id number] SINGHJESUS EDITA 01/07 Released w/o Limitations [facility](Hea ring Cons [place]) [facility](Emergen cy Medicine NMCP) OUTPATIENT [id number] LEE ANN MALONE 03/31 Released w/o Limitations [facility](Mercedes rgency Medicin e NMCP) [facility] OUTPATIENT [id number] Theater Provider 04/14 Released with Work/Duty Limitations Theater Facilit y [facility](Immuniz ations [facility]) OUTPATIENT [id number] Notes Entered by: MADELYN HUYNH 24 Sep 2020 0951 ------- ------- ------- ------- -- LINCOLN ANSARI 09/24 Released w/o Limitations [facility](Imm unizati ons [facility] ) Theater Facility OUTPATIENT [id number] Theater Provider 12/21 Released w/o Limitations [facility] Facilit [facility](Derm [facility]ology - [facility]) OUTPATIENT [id number] UMER Moralez 01/11 Released w/o Limitations [facility](De rmatolo gy - [facility]) [facility](Fami ly Medicine ([facility])) TELE CONSULT [id number] Notes Entered by: ALONZO CARBONE 26 Jan 2021 1048 ------- ------- ------- ------- -- PT REQUEST A PRESCRI PTION JELENA YOUNG 01/26 Other Not Elsewhere Classified [facility](Fa suad Medicin e ([facility])) [facility](Emergen cy Medicine [facility]) OUTPATIENT [id number] FAYE-NEGRO ALMANZAR 06/20 Released w/o Limitations [facility](Mercedes rgency Medicin e NMCP) [facility]) OUTPATIENT [id number] PHA-NON STUDENT MIRIAM BECKER 01/19 Released w/o Limitations [facility]( [facility]) Procedures Combined list of: 1) Procedures from Department of Veterans Affairs facilities going back up to thelast 18 months, not all VA non-surgical procedures are included; 2) All procedures from the Department of Defense facilities. Procedure Procedure Type Code Date Perfomer Comments Sour e Repair, primary, open or percutaneous, ruptured Achilles tendon; Repair, primary, open or percutaneous, ruptured Achilles tendon; 02440 2022 [facility] [place] Extraction, erupted tooth or exposed root (elevation and/or forceps removal) 2016 [facility] TELE ASSESS & MGT SRV PROV QUAL NONPHYS HLTH CARE PRO TO EST PAT,PARENT,GUARD NOT ORIG REL ASSESS & MGT SRV PROV W/IN PREV 7 DAYS NOR LEAD ASSESS & MGT SRV/PX W/IN NXT 24 HR/SOON APT;5-10 MIN MED DIS 2020 DoD DESTRUCTION (EG, LASER SURGERY, ELECTROSURGERY, CRYOSURGERY, CHEMOSURGERY, SURGICAL CURETTEMENT), OF BENIGN LESIONS OTHER THAN SKIN TAGS OR CUTANEOUS VASCULAR PROLIFERATIVE LESIONS; UP TO 14 LESIONS 2020 DoD PSYCHIATRIC DIAGNOSTIC EVALUATION 2020 DoD POLIOVIRUS VACCINE, INACTIVATED (IPV), FOR SUBCUTANEOUS OR INTRAMUSCULAR USE 2016 DoD SKIN TEST; TUBERCULOSIS, INTRADERMAL 2016 DoD IMMUNIZATION ADMINISTRATION (INCLUDES PERCUTANEOUS, INTRADERMAL, SUBCUTANEOUS, OR INTRAMUSCULAR INJECTIONS); EACH ADDITIONAL VACCINE (SINGLE OR COMBINATION VACCINE/TOXOID) 2016 [facility] PATIENT EDUCATION, NOT OTHERWISE CLASSIFIED, NON-PHYSICIAN PROVIDER, GROUP, PER SESSION 2016 DoD VIS FUNCT SCREEN,AUTOMAT/SEMI -AUTOMAT BILAT QUANT DETERM VISUAL ACUITY,OCULAR ALIGN,COLOR VISION,PSEUDOISOCHR OMAT PLATES,& FIELD VIS (MAY INC ALL/SOME SCRN DETERM FOR CONTRAST SENSITIV,VIS UND GLARE) 2016 [facility] AUDIOMETRIC TESTING OF GROUPS 2016 [facility] KNEE ORTHOSIS, IMMOBILIZER, CANVAS LONGITUDINAL, PREFABRICATED, GLS-XFS-PTYPI 2020 [facility] IMMUNIZATION ADM,INTRAMUSCULAR INJECTION OF SEVERE AC RESPIRATORY SYNDROME CORONAVIR 2 (SARSCOV-2) (CORONAVIR DIS [COVID-19]) VACCINE,MRNALNP,SPI KE PROT,PRESERVATIVE FREE,100 MCG/0.5ML DOSAG;1ST DOSE 2020 [facility] INJECTION, KETOROLAC TROMETHAMINE, PER 15 MG 2019 [facility] PATIENT EDUCATION, NOT OTHERWISE CLASSIFIED, NON-PHYSICIAN PROVIDER, INDIVIDUAL, PER SESSION 2019 [facility] PATIENT EDUCATION, NOT OTHERWISE CLASSIFIED, NON-PHYSICIAN PROVIDER, INDIVIDUAL, PER SESSION 2019 [facility] DETERMINATION OF REFRACTIVE STATE 2018 [facility] PATIENT EDUCATION, NOT OTHERWISE CLASSIFIED, NON-PHYSICIAN PROVIDER, INDIVIDUAL, PER SESSION 2018 [facility] FINGER ORTHOSIS, WITHOUT JOINTS, MAY INCLUDE SOFT INTERFACE, CUSTOM FABRICATED INCLUDES FITTING AND ADJUSTMENT 2018 [facility] UNLISTED FLUOROSCOPIC PROCEDURE (EG, DIAGNOSTIC, INTERVENTIONAL) 2018 [facility] APPLICATION OF SHORT ARM SPLINT (FOREARM TO HAND); STATIC 2018 [facility] PRESCRIPTION DRUG, ORAL, NONCHEMOTHERAPEUTIC , NOT OTHERWISE SPECIFIED 2018 [facility] PATIENT EDUCATION, NOT OTHERWISE CLASSIFIED, NON-PHYSICIAN PROVIDER, INDIVIDUAL, PER SESSION 2017 [facility] Determination Of Refractive State Determination Of Refractive State 59540 2018 KESHAV CAI [facility] Ophthalmological New Patient Start Comprehensive Care Ophthalmological New Patient Start Comprehensive Care [id number] 2018 KESHAV CAI [facility] Patient education, not otherwise cla ified, non-physician provider, individual, per se ion 2018 PACO CASTELLANOS Threshold Audiogram (Pure Tone) Automated Threshold Audiogram (Pure Tone) Automated 0208T 2018 PACO CASTELLANOS [facility] Finger orthosis, without joints, may include soft interface, custom fabricated, includes fitting and adjustment 2018 MARY LUIS [facility] Physical Therapy Education Orthotics Training Physical Therapy Education Orthotics Training 52514 2018 MARY LUIS [facility] Fluoroscopy Fluoroscopy 32861 2018 MAHESH KIM [facility] Orthopedic Splinting Short Arm Orthopedic Splinting Short Arm 32545 2018 KESHAV WEAVER Fluoroscopy Up To One Hour Physician Time Fluoroscopy Up To One Hour Physician Time [id number] 2018 KESHAV WEAVER Patient education, not otherwise cla ified, non-physician provider, individual, per se ion 2017 JAC EVANS Threshold Audiogram (Pure Tone) Automated Threshold Audiogram (Pure Tone) Automated 0208T 2017 JAC EVANS Skin Test Anergy Tuberculin Intradermal Skin Test Anergy Tuberculin Intradermal 06848 2016 ZACHARIAH SALTER IPPD; Series #: 1; .1 mL; ID; Left Arm; Mfg: Sanof[employer] Pasteur; Lot: [id number]; VIS given. [facility] Injection, penicillin g benzathine, 100,000 units 2016 WILL INGRAM [facility] Physician Supervised Injection Intramuscular Antibiotic Physician Supervised Injection Intramuscular Antibiotic 32399 2016 WILL INGRAM [facility] Vaccines Adenovirus Type 7 Live, For Oral Use Vaccines Adenovirus Type 7 Live, For Oral Use 12384 2016 WILL INGRAM [facility] Immunization Admin Intranasal / Oral Each Additional Vaccine Immunization Admin Intranasal / Oral Each Additional Vaccine 48565 2016 WILL INGRAM [facility] Vaccines Adenovirus Type 4 Live, For Oral Use Vaccines Adenovirus Type 4 Live, For Oral Use 91982 2016 WILL INGRAM [facility] Influenza Split Virus Vaccine 0.5mL Dosage Intramuscular 2016 WILL INGRAM [facility] Immunization Administration By Injection, Each Additional Vaccine Immunization Administration By Injection, Each Additional Vaccine 04489 2016 WILL INGRAM [facility] Meningococcal Polysaccharide Diphtheria Toxoid Conjugate Vaccine 2016 WILL INGRAM Meningococcal MCV4P; Series #: 1; .5 mL; IM; Left Arm; Mfg: Sanof[employer] Pasteur; Lot: [id number]; VIS given (Rekha: 11/04/2015). [facility] Tdap Vaccine Tdap Vaccine 20436 2016 WILL INGRAM Tdap; Series #: 1; .5 mL; IM; Right Arm; Mfg: Other; Lot: [id number]; VIS given (Rekha: 09/29/14). [facility]D Immunization Administration By Injection, One Vaccine Immunization Administration By Injection, One Vaccine 63606 2016 WILL INGRAM Patient education, not otherwise cla ified, non-physician provider, group, per se ion 2016 RUDDY ALMARAZ Visual Function Screening Visual Function Screening 98303 2016 NEDRA BELTRAN Threshold Audiogram (Pure Tone) Threshold Audiogram (Pure Tone) 88167 2016 [facility] [place] [facility] Testing Audiometry Group Testing 68701 2016 [place] Threshold Audiogram (Pure Tone) Automated Threshold Audiogram (Pure Tone) Automated 0208T BRITTNI SALDANA Patient education, not otherwise cla ified, non-physician provider, individual, per se ion BRITTNI SALDANA Vaccine SARS-CoV-2 mRNA-LNP Juan Luis Protein Preservative Free 100mcg/0.5mL IM Vaccine SARS-CoV-2 mRNA-LNP Juan Luis Protein Preservative Free 100mcg/0.5mL IM [address] LIN[place] SE[place]URA COVID-19 Moderna; Series #: 1; 0.5 mL; IM; Left Arm; Mfg: Moderna [employer] Lot: [id number]; VIS given (Rekha: 07/06/2020). DoD Immunization Administration By Injection, One Vaccine Immunization Administration By Injection, One Vaccine 09334 LINCOLN SEGURA [facility] Vaccine SARS-CoV-2 mRNA-LNP Juan Luis Protein Preservative Free 100mcg/0.5mL IM First Dose Vaccine SARS-CoV-2 mRNA-LNP Juan Luis Protein Preservative Free 100mcg/0.5mL IM First Dose 0011A LINCOLN SEGURA [facility] Psychiatric Diagnostic Evaluation Psychiatric Diagnostic Evaluation 72040 ERICK ARREDONDO Paring / Curettage Of Benign Hyperkeratotic Lesion, Single Paring / Curettage Of Benign Hyperkeratotic Lesion, Single 72143 UMER UPTON Paring / Curettage Of Benign Hyperkeratotic Lesions, 2-4 Paring / Curettage Of Benign Hyperkeratotic Lesions, 2-4 57458 UMER [place] Destruction Of Benign Lesion By Any Method Destruction Of Benign Lesion By Any Method 98336 UMER UPTON Non-Physician Phone Call To Patient/Provider Brief (5-10min) Non-Physician Phone Call To Patient/Provider Brief (5-10min) [id number] JELENA YOUNG Social History Combined list of available smoking, tobacco, and other social history from [facility] Defense and [facility] facilities. Social History Type Response Date Comment Sourc e Male 06/26/2022 Ambulatory Pha rmacy Sexual Orientation Ambula tory Pharmacy Gender identity Ambulator y Pharmacy This section is an empty soc ial history section. DoD Assessment and Plan Combined list of future care activities from Department of Defense and Veterans Affairs facilities (e.g., assessment and plan notes, appointments, orders, and referrals). Additional future care activities may be listed in the Plan of Care section. Result Assessment and Plan Date Source Assessment and Plan Extracted from:Title : LIMDU: LEFT ACHILLES RUPTURE S/P REPAIR Author: LUIS SKY NP Date: 06/26/23 1.?Rupture of left Achilles tendon 27 y/o ADM to clinic for LIMDU f/u. Pt. is engaged in care with a civilian PCM but requires this visit for administrative purposes. ? Clinical History: -[id number] Left Achilles rupture while running on treadmill and felt a pop. -[id number] Left Achilles repair -Engaged with [facility] and physical therapy twice weekly?post-operatively and progressing as expected. Pt. currently out of walking boot and back in regular uniform with working boots. ? ? -LIMDU initiated today [id number] -Monthly LIMDU f/u virtually due to distance. -Pt. v/u and concurs. ? 20-29 (31707)?minutes total time spent on evaluation and management.Standby was offered to the patient and documented in note if accepted.??Medications reconciled.??Care plan developed with the?patientand agreed upon.??Pt?verbalizes understanding of plan.???There were no obvious barriers to learning.? ? Luis Sky, KEHINDE, SAP MOBILITY ARCHITECT, JUNIOR JAVA DEVELOPER-C [place], [place], [facility] ? Extracted from:Title: LIMDU: S/P LEFT ACHILLES RUPTURE REPAIR Author: LUIS SKY NP Date: 05/16/23 1.?Rupture of left Achilles tendon 27 y/o ADM to clinic for LIMDU f/u. Pt. is engaged in care with a civilian PCM but requires this visit for administrative purposes. ? Clinical History: -[id number] Left Achilles rupture while running on treadmill and felt a pop. -[id number] Left Achilles repair -Engaged with [facility] and physical therapy post-operatively and progressing as expected. Pt. currently out of walking boot. ? ? -LIMDU initiated today -Monthly LIMDU f/u virtually due to distance. -Pt. v/u and concurs. ? 20-29 (93797)?minutes total time spent on evaluation and management.Standby was offered to the patient and documented in note if accepted.??Medications reconciled.??Care plan developed with the?patientand agreed upon.??Pt?verbalizes understanding of plan.???There were no obvious barriers to learning.? ? Luis Sky, DNP, SAP MOBILITY ARCHITECT, JUNIOR JAVA DEVELOPER-C , [place], [facility] ? Extracted from:Title: LIMDU: L ACHILLES RUPTURE Author: LUIS SKY NP Date: 04/25/23 1.?Rupture of left Achilles tendon 27 y/o ADM to clinic for placement on LIMDU. Pt. is engaged in care with a civilian PCM but requires this visit for administrative purposes. ? Clinical History: -[id number] Left Achilles rupture while running on treadmill and felt a pop. -[id number] Left Achilles repair -Engaged with [facility] and physical therapy post-operatively and progressing as expected. ? ? -LIMDU initiated today ; directed to Medical Boards -Monthly LIMDU f/u virtually due to distance. -Pt. v/u and concurs. ? 30-39 (00179)?minutes total time spent on evaluation and management.Standby was offered to the patient and documented in note if accepted.??Medications reconciled.??Care plan developed with the?patientand agreed upon.??Pt?verbalizes understanding of plan.???There were no obvious barriers to learning.? ? Luis Sky, DNP, SAP MOBILITY ARCHITECT, JUNIOR JAVA DEVELOPER-C , [place], [facility] ? 07/15/2024 Ambulatory Pharmacy Functional Status Combined list of recent functional and cognitive assessments recorded at [facility] Functional [place] Measurement (FIM) Scale: 1 = Total Assistance (Subject = 0% +), 2 = Maximal Assistance (Subject = 25% +), 3 = Moderate Assistance (Subject = 50% +), 4 = Minimal Assistance (Subject = 75% +), 5 = Supervision, 6 = Modified [place] (Device), 7 = Complete [place] (Timely, Safely). Assessment Date/Time Source Assessment Type Assessment Skill Assessment Score Assessment Details No data available for this section
--- OUTSIDE RECORDS SUMMARY | 2024-07-15 15:17 | XMS_ITS ---
Author Name [facility] Organization Unknown History of Medication Use Medication Directions Dispensed Refills Start Date End Date Stat valACYclovir (VALTREX) 1000 MG tablet Take by mouth. 10/25/2022 active ergocalciferol (VITAMIN D2,DRISDOL) 30663 units Cap Take by mouth. 10/25/2022 activ e methocarbamol (ROBAXIN) 750 MG tablet Take 1 tablet by mouth 3 (three) times a day as needed. 10/25/2022 active vilazodone (VIIBRYD) 10 MG tablet Take 1 tablet (10 mg total) by mouth daily. Decrease the escitalopram to 1/2 tablet for 1 week then stop, after stopping increase the vilazodone to 2 tablets daily 10/25/2022 active Problems Problem Status Onset Date Problem Type Date of Resoluti on Source Pain in wrist, unspecified laterality active EncounterDiagnosisAct CCT Chronic hand pain, unspecified laterality active EncounterDiagnosisAct HHCCT
== END 2024-07-08 15:28 | disposition home or self-care (01) ==
LOC: HO.WFDLDS 15:27
PROVIDERS: Visit Provider Family Medicine
DX: Z11.3 Encounter for screening for infections with a predominantly sexual mode of transmission (principal); R21 Rash and other nonspecific skin eruption
CPT/HCPCS: 36415; 86695; 86696; 86704; 86706; 86780; 86803; 87340; 87389

== ENCOUNTER 2024-07-23 14:28 | Outpatient (AMB) | payer OTHER, SELFPAY ==
--- OUTSIDE RECORDS SUMMARY | 2024-07-23 14:29 | XMS_ITS | Continuity of Care Document ---
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 It does not include entries that were removed or entered in error. 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 BOTTLE Active [id number] 2023 90 Pharmac y Data Transac tion Service Facilit y AMITRIPTYLI NE HCL (amitriptyl ine HCl), 25 MG, TABLET, ORAL, ZYDUS PHARMACEU, 1000 ea. BOTTLE Active [id number] 2023 90 Pharmac y Data Transac tion Service Facilit y escitalopra m 20 mg oral tablet 90 EA, 0 Refill(s ), TAKE 1/2 TABLET BY MOUTH EVERY DAY FOR 2 WEEKS THEN INCREASE TO TABLET DAILY, 0 total refill(s ), Soft Stop Ordered [facility] KETOCONAZOL E (ketoconazo le), 2 %, CREAM (G), TOPICAL, TEVA [place], 60 g TUBE Active [id number] 2023 60 Pharmac y Data Transac tion Service Facilit y meloxicam 15 mg oral tablet 1 tab(s), Oral, Daily, # 30 tab(s), 0 total refill(s ), Maintena nce Oral (given by mouth) Ordered 30.0 [facility] ondansetron 4 mg oral tablet 21 EA, 0 Refill(s ), TAKE 1 TABLET BY MOUTH EVERY 8 HOURS NEEDED FOR NAUSEA, 0 total refill(s ), Soft Stop Discont inued 05/16/2023 [facility] ONDANSETRON ODT (ONDANSETRO N), 4 MG, TAB RAPDIS, ORAL, AUROBINDO PHARM, 30 ea. BLIST PACK Cancele d [id number] : 2023 0 Pharmac y Data Transac tion Service Facilit y oxyCODONE 5 mg oral tablet 30 EA, 0 Refill(s ), TAKE 1 TABLET BY MOUTH EVERY 4 TO 6 HOURS NEEDED FOR PAIN SEVERE. DO NOT DRIVE, 0 total refill(s ), Soft Stop Discont inued 05/16/2023 [facility] SUMATRIPTAN SUCCINATE (sumatripta n succinate), 25 MG, TABLET, ORAL, Blue Rooster., 9 ea. BLIST PACK Active [id number] 2023 10 Pharmac y Data Transac tion Service Facilit y Allergies, Adverse Reactions, Alerts Combined list of allergies from Department of Defense and Veterans Affairs facilities. It does not include entries that were removed or entered in error. Substance Category Reaction Severity Reaction type Status Date Reported Comments Source No Known Allergies Drug allergy (disorder) active 9 [facility] Immunizations Combined list of available immunizations from the Department of Defense and Veterans Affairs facilities. Immunization Series Date Given Administered By Site Reaction Lot Number CVX Code Drug Relationship Advisor Status Comments Source COVID Vaccine Moderna 2021 TRS 207 complet ed COVID Vaccine Moderna 01/20/22 Given Ambulat ory Pharmac y COVID-19, mRNA, LNP-S, PF, 100 mcg or 50 mcg dose 2021 RAZO, () Not Given COVID-19, mRNA, LNP-S, PF, 100 mcg or 50 mcg dose DoD influenza, injectable, quadrivalent- pf 2020 [id number] 150 Seqirus complet ed influenza , injectabl e, quadrival ent-pf 05/27/21 Given Ambulat ory Pharmac y influenza, injectable, quadrivalent- pf 2020 [id number] 150 Seqirus complet ed influenza , injectabl e, quadrival ent-pf 05/27/21 Given Ambulat ory Pharmac y Influenza, injectable, quadrivalent, preservative free 0 2020 [id number] 150 Seqirus (SEQ) complet ed Influenza , injectabl e, quadrival ent, preservat enma free DoD typhoid Vi capsular polysaccharid e vac 2020 [id number] 101 sanofi pasteur complet ed typhoid Vi capsular polysacch aride vac 12/11/20 Given Ambulat ory Pharmac y yellow fever vaccine 2020 [id number] 37 sanofi pasteur complet ed yellow fever vaccine 12/11/20 Given Ambulat ory Pharmac y meningococcal A,C,Y,W-135 (MCV4P) 2020 [id number] 114 sanofi pasteur complet ed meningoco ccal A,C,Y,W-1 35 (MCV4P) 12/11/20 Given Ambulat ory Pharmac y yellow fever vaccine 2020 [id number] 37 sanofi pasteur complet ed yellow fever vaccine 12/11/20 Given Ambulat ory Pharmac y typhoid Vi capsular polysaccharid e vac 2020 [id number] 101 sanofi pasteur complet ed typhoid Vi capsular polysacch aride vac 12/11/20 Given Ambulat ory Pharmac y meningococcal A,C,Y,W-135 (MCV4P) 2020 [id number] 114 sanofi pasteur complet ed meningoco ccal A,C,Y,W-1 35 (MCV4P) 12/11/20 Given Ambulat ory Pharmac y yellow fever vaccine 0 2020 [id number] 37 Sanofi Pasteur (PMC) complet ed yellow fever vaccine DoD typhoid Vi capsular polysaccharid e vaccine 2 2020 [id number] 101 Sanofi Pasteur (PMC) complet ed typhoid Vi capsular polysacch aride vaccine DoD meningococcal polysaccharid e (groups A, C, Y and W-135) diphtheria toxoid conjugate vaccine (MCV4P) 0 2020 [id number] 114 Sanofi Pasteur ([facility]) complet ed meningoco ccal polysacch aride (groups A, C, Y and W-135) diphtheri a toxoid conjugate vaccine (MCV4P) DoD COVID Vaccine Moderna 2020 [id number] complet ed COVID Vaccine Moderna 10/24/20 Given Ambulat ory Pharmac y SARS-COV-2 (COVID-19) vaccine, mRNA, spike protein, LNP, preservative free, 100 mcg or 50 mcg dose 2 2020 [id number] 207 Moderna US, Inc. (MOD) complet ed SARS-COV- 2 (COVID-19 ) vaccine, mRNA, spike protein, LNP, preservat enma free, 100 mcg or 50 mcg dose DoD COVID Vaccine Moderna 2020 [id number] 207 complet ed COVID Vaccine Moderna 09/24/20 Given Ambulat ory Pharmac y COVID Vaccine Moderna 2020 zzLef t Arm [id number] 207 complet ed COVID Vaccine Moderna 09/24/20 Given Ambulat ory Pharmac y SARS-COV-2 (COVID-19) vaccine, mRNA, spike protein, LNP, preservative free, 100 mcg or 50 mcg dose 1 2020 LINCOLN SEGURA [id number] 207 Moderna US, Inc. (MOD) complet ed SARS-COV- 2 (COVID-19 ) vaccine, mRNA, spike protein, LNP, preservat enma free, 100 mcg or 50 mcg dose DoD influenza, injectable, quadrivalent 2019 [id number] 167 158 Seqirus complet ed influenza , injectabl e, quadrival ent 05/25/20 Given Ambulat ory Pharmac y influenza, injectable, quadrivalent 2019 [id number] 167 158 Seqirus complet ed influenza , injectabl e, quadrival ent 05/25/20 Given Ambulat ory Pharmac y influenza, injectable, quadrivalent, contains preservative 0 2019 [id number] 167 158 Seqirus (SEQ) complet ed influenza , injectabl e, quadrival ent, contains preservat enma DoD typhoid Vi capsular polysaccharid e vac 2018 (C) [id number] 101 sanofi pasteur complet ed typhoid Vi capsular polysacch aride vac 03/24/19 Given Ambulat ory Pharmac y typhoid Vi capsular polysaccharid e vac 2018 C [id number] 101 sanofi pasteur complet ed typhoid Vi capsular polysacch aride vac 03/24/19 Given Ambulat ory Pharmac y typhoid Vi capsular polysaccharid e vaccine 1 2018 C [id number] 101 Sanofi Pasteur (PMC) complet ed typhoid Vi capsular polysacch aride vaccine DoD influenza, injectable, quadrivalent 2017 [id number] 158 GlaxoSmithKli ne complet ed influenza , injectabl e, quadrival ent 07/24/18 Given Ambulat ory Pharmac y influenza, injectable, quadrivalent, contains preservative 0 2017 [id number] 158 [facility] ed influenza , injectabl e, quadrival ent, contains preservat enma DoD anthrax vaccine 2017 [id number] 24 Emergent Bios[employer] complet ed anthrax vaccine 12/05/17 Given Ambulat ory Pharmac y anthrax vaccine 2017 [id number] 24 [employer] complet ed anthrax vaccine 12/05/17 Given Ambulat ory Pharmac y anthrax vaccine 2 2017 [id number] 24 [employer] [place] (MIP) complet ed anthrax vaccine DoD anthrax vaccine 2017 [id number] 24 [employer] complet ed anthrax vaccine 11/07/17 Given Ambulat ory Pharmac y anthrax vaccine 1 2017 [id number] 24 [employer] [place] (MIP) complet [...] dosage DoD influenza, injectable, quadrivalent 10/27/ 2017 [id number] 158 Seqirus complet ed influenza , injectabl e, quadrival ent 06/01/17 Given Ambulat ory Pharmac y influenza, injectable, quadrivalent [id number] 158 Seqirus complet ed influenza , injectabl e, quadrival ent 06/01/17 Given Ambulat ory Pharmac y influenza, injectable, quadrivalent, contains preservative 0 2016 [id number] 158 Seqirus (SEQ) comple t ed influenza , injectabl e, quadrival ent, contains preservat enma DoD poliovirus vaccine, inactivated 2016 [id number] 10 sanofi pasteur complet ed polioviru s vaccine, inactivat ed 09/26/16 Given Ambulat ory Pharmac y poliovirus vaccine, inactivated 2016 zzLef t Arm [id number] 10 sanofi pasteur complet ed polioviru s vaccine, inactivat ed 09/26/16 Given Ambulat ory Pharmac y poliovirus vaccine, inactivated 1 2016 NABEEL GOMEZ [id number] 10 Sanofi Pasteur ([facility]) complet ed polioviru s vaccine, inactivat ed [...] purified protein derivative 2016 zzLef t Arm [id number] 96 sanofi pasteur complet ed Patient Tolerance : Negative Ambulat ory Pharmac y tuberculin skin test; purified protein derivative solution, intradermal 0 2016 ZACHARIAH SALTER [id number] 96 Sanofi Pasteur ([facility]) complet ed tuberculi n skin test; purified protein derivativ e solution, intraderm al DoD influenza, seasonal, injectable-pf 2016 [id number] 140 Seqirus complet ed influenza , seasonal, injectabl e-pf 08/23/16 Given Ambulat ory Pharmac y tetanus, diphtheria, acellular pertu is 2016 [id number] 115 Unknown complet ed tetanus, diphtheri a, acellular pertussis 08/23/16 Given Ambulat ory Pharmac y adenovirus vaccine, live 2016 [id number] 6 143 Unknown complet ed adenoviru s vaccine, live 08/23/16 Given Ambulat ory Pharmac y influenza, seasonal, injectable-pf 2016 zzLef t Arm [id number] 140 Seqirus complet ed influenza , seasonal, injectabl e-pf 08/23/16 Given Ambulat ory Pharmac y meningococcal A,C,Y,W-135 (MCV4P) 2016 zzLef t Arm [id number] 114 sanofi pasteur complet ed meningoco ccal A,C,Y,W-1 35 (MCV4P) 08/23/16 Given Ambulat ory Pharmac y tetanus, diphtheria, acellular [id number] Unknown complet ed tetanus, diphtheri a, acellular pertussis 08/23/16 Given Ambulat ory Pharmac y adenovirus vaccine, live 2016 [id number] 6 143 Unknown complet ed adenoviru s vaccine, live 08/23/16 Given Ambulat ory Pharmac y meningococcal polysaccharid e (groups A, C, Y and W-135) diphtheria toxoid conjugate vaccine (MCV4P) 1 2016 WILL INGRAM [id number] 114 Sanofi Pasteur ([facility]) complet ed meningoco [...] injectable, preservative free 1 2016 WILL INGRAM [id number] 140 Seqirus (SEQ) complet ed Influenza , seasonal, injectabl e, preservat enma free DoD Adenovirus, type 4 and type 7, live, oral 1 2016 WILL INGRAM [id number] 6 143 Other (OTH) complet ed Adenoviru [...] months. 2) Encounters from the Department of Curiously facilities going back up to 280 months. Location Location Details Encounter Type Encounter Number Reason For Visit Attending Provider ADM Date DC Date Status Disposition Source One or More A Facilitie s THERAPIST History 08/06 One or More A Facilit ies THERAPIST [facility](Au diology [facility] 1523) OUTPATIENT [id number] SOL BAHENA 08/22 Released w/o Limitations [facility]( Audiolo gy [facility] 1523) [facility](Op tometry [facility] 1523) OUTPATIENT [id number] NEDRA BELTRAN 08/22 Released w/o Limitations [facility]( Optomet ry [facility] 1523) [facility] Male) OUTPATIENT [id number] Notes Entered by: RUDDY ALMARAZ 23 Aug 2016 1305 ------- ------- ------- ------- -- [facility] w[facility]o Lim[facility]( [facility] Male) [facility](Im munizatio n 1523) OUTPATIENT [id number] Notes Entered by: WILL INGRAM 23 Aug 2016 1653 ------- ------- ------- ------- -- P4 Immuniz ations ELLIE MISHRA Yessi 08/23 Released w/o Limitations [facility]( Immuniz ation 1523) [facility](Pr ev Med Immunizat ions/237) OUTPATIENT [id number] Notes Entered by: ZACHARIAH SALTER 29 Aug 2016 1406 ------- ------- ------- ------- -- TST PPD TB Testing ARDONJENNIFER 08/29 Released w/o Limitations [facility]( Prev Med Immuniz ations/ 237) [facility](Ho nor (Red) 1007) OUTPATIENT [id number] Notes Entered by: СЕРГЕЙ ROBERTS 26 Sep 2016 1102 ------- ------- ------- ------- -- VERNON Harmon 09/26 Released w/o Limitations [facility]( [place] (Red) 1007) [facility](Emergen cy Medicine NMCP) OUTPATIENT [id number] EDEN ASHFORD 01/18 Released w/o Limitations [facility](Mercedes rgency Medicin e NMCP) [facility] Facility OUTPATIENT [id number] Theater Provider 05/10 Released w/o Limitations Theater Facilit y [facility](Hearing Cons [place]) OUTPATIENT [id number] Notes Entered by: JANNETH EVANS 09 Oct 2017 1451 ------- ------- ------- ------- -- Annual JAC EVANS 10/09 Released w/o Limitations [facility](Hea ring Cons [place] Sta) Theater Facility OUTPATIENT [id number] Theater Provider 11/07 Released w/o Limitations Theater Facilit y [facility](Emergen cy Medicine NMCP) OUTPATIENT [id number] CANDICE ESCALANTE 11/20 Released w/o Limitations [facility](Mercedes rgency Medicin e NMCP) [facility](Acute Care Ortho NMCP) OUTPATIENT [id number] Notes Entered by: KESHAV WEAVER 20 Nov 2018 0415 ------- ------- ------- ------- -- right small finger fractur e WAQAR ROBLEDO 11/20 Released with Work/Duty Limitations [facility](Acu te Care Ortho NMCP) [facility](Hand Surg NMCP) OUTPATIENT [id number] tracker right small finger fx MIRIAM KIM 11/28 Released with Work/Duty Limitations [facility](Fung d Surg NMCP) [facility](Hand Surg NMCP) OUTPATIENT [id number] 1 f/u visit on rt.MIRIAM GONZALEZ 12/19 Released with Work/Duty Limitations [facility](Fung d Surg NMCP) [facility](Occupat ional Therapy Hand Clinic NMCP) OUTPATIENT [id number] MARY Garcia 12/19 Released w/o Limitations [facility](Occ upation al Therapy Hand Clinic NMCP) [facility](Hearing Cons [place] Sta) OUTPATIENT [id number] BRITTNI SALDANA 12/20 Released w/o Limitations [facility](Hea ring Cons [place] Sta) [facility](Optomet ry [place]) OUTPATIENT [id number] EYE EXAM KESHAV CAI 01/09 Released w/o Limitations [facility](Opt ometry [place]) [facility](Hand Surg NMCP) OUTPATIENT [id number] f/u right MIRIAM GONZALEZ 02/27 Released w/o Limitations [facility](Fung d Surg NMCP) [facility] NavSta T2) OUTPATIENT [id number] LUIS Denise 05/28 Released w/o Limitations [facility] (Hearing Cons [place] Sta) OUTPATIENT [id number] BRITTNI SALDANA 01/06 Released w/o Limitations [facility]Hea ring [facility] [place]) [facility](Hearing Cons [place] Sta) OUTPATIENT [id number] SINGHJESUS EDITA 01/07 Released w/o Limitations [facility](Hea ring Cons [place] Sta) [facility](Emergen cy Medicine NMCP) OUTPATIENT [id number] LEE ANN MALONE 03/31 Released w/o Limitations [facility](Mercedes rgency Medicin e NMCP) [facility] OUTPATIENT [id number] Theater Provider 04/14 Released with Work/Duty Limitations Theater Facilit y [facility](Immuniz ations [facility]) OUTPATIENT [id number] Notes Entered by: MADELYN HUYNH 24 Sep 2020 0951 ------- ------- ------- ------- -- LINCOLN ANSARI 09/24 Released w/o Limitations [facility](Imm unizati ons [facility] ) Theater Facility OUTPATIENT [id number] Theater Provider 12/21 Released w/o Limitations Theater Facilit [facility](Derm [facility]ology - [facility]) OUTPATIENT [id number] UMER Moralez 01/11 Released w/o Limitations [facility](De rmatolo gy - [facility]) [facility](Fami ly Medicine ([facility])) TELE CONSULT [id number] Notes Entered by: ALONZO CARBONE 26 Jan 2021 1048 ------- ------- ------- ------- -- PT REQUEST A PRESCRI PTION JELENA YOUNG 01/26 Other Not Elsewhere Classified [facility](Fa suad Medicin e ([facility])) [facility](Emergen cy Medicine NMCP) OUTPATIENT [id number] FAYE-NEGRO ALMANZAR 06/20 Released w/o Limitations [facility](Mercedes rgency Medicin e NMCP) [facility]) OUTPATIENT [id number] PHA-NON STUDENT MIRIAM BECKER 01/19 Released w/o Limitations [facility]( [facility]) Procedures Combined list [...] primary, open or percutaneous, ruptured Achilles tendon; 18604 2022 [facility] Extraction, erupted tooth or exposed root (elevation and/or forceps removal) 2016 [facility] TELE ASSESS & MGT SRV PROV QUAL [...] ADDITIONAL VACCINE (SINGLE OR COMBINATION VACCINE/TOXOID) 2016 [facility] PATIENT EDUCATION, NOT OTHERWISE CLASSIFIED, NON-PHYSICIAN PROVIDER, GROUP, PER SESSION 2016 DoD VIS FUNCT SCREEN,AUTOMAT/SEMI -AUTOMAT BILAT QUANT DETERM VISUAL ACUITY,OCULAR ALIGN,COLOR VISION,PSEUDOISOCHR OMAT PLATES,& FIELD VIS (MAY INC ALL/SOME SCRN DETERM FOR CONTRAST SENSITIV,VIS UND GLARE) 2016 [facility] AUDIOMETRIC TESTING OF GROUPS 2016 [facility] KNEE ORTHOSIS, IMMOBILIZER, CANVAS LONGITUDINAL, PREFABRICATED, [id number] 2020 [facility] IMMUNIZATION ADM,INTRAMUSCULAR INJECTION OF SEVERE AC RESPIRATORY SYNDROME CORONAVIR 2 (SARSCOV-2) (CORONAVIR DIS [COVID-19]) VACCINE,MRNALNP,SPI KE PROT,PRESERVATIVE FREE,100 MCG/0.5ML DOSAG;1ST DOSE 2020 [facility] INJECTION, KETOROLAC TROMETHAMINE, PER 15 MG 2019 [facility] PATIENT EDUCATION, NOT OTHERWISE CLASSIFIED, NON-PHYSICIAN PROVIDER, INDIVIDUAL, PER SESSION 2019 [facility] PATIENT EDUCATION, NOT OTHERWISE CLASSIFIED, NON-PHYSICIAN PROVIDER, INDIVIDUAL, PER SESSION 2019 [facility] DETERMINATION OF REFRACTIVE STATE 2018 [facility] PATIENT EDUCATION, NOT OTHERWISE CLASSIFIED, NON-PHYSICIAN PROVIDER, INDIVIDUAL, PER SESSION 2018 [facility] FINGER ORTHOSIS, WITHOUT JOINTS, MAY INCLUDE SOFT INTERFACE, CUSTOM FABRICATED INCLUDES FITTING AND ADJUSTMENT 2018 [facility] UNLISTED FLUOROSCOPIC PROCEDURE (EG, DIAGNOSTIC, INTERVENTIONAL) 2018 [facility] APPLICATION OF SHORT ARM SPLINT (FOREARM TO HAND); STATIC 2018 [facility] PRESCRIPTION DRUG, ORAL, NONCHEMOTHERAPEUTIC , NOT OTHERWISE SPECIFIED 2018 [facility] PATIENT EDUCATION, NOT OTHERWISE CLASSIFIED, NON-PHYSICIAN PROVIDER, INDIVIDUAL, PER SESSION 2017 [facility] Determination Of Refractive State Determination Of Refractive State 85271 2018 KESHAV CAI [facility] Ophthalmological New Patient Start Comprehensive Care Ophthalmological New Patient Start Comprehensive Care 87350 2018 KESHAV CAI [facility] Patient education, not otherwise cla ified, non-physician provider, individual, per se ion 2018 PACO CASTELLANOS Threshold Audiogram (Pure Tone) Automated Threshold Audiogram (Pure Tone) Automated 0208T 2018 PACO CASTELLANOS [facility] Finger orthosis, without joints, may include soft interface, custom fabricated, includes fitting and adjustment 2018 MARY LUIS [facility] Physical Therapy Education Orthotics Training Physical Therapy Education Orthotics Training 83592 2018 MARY LUIS [facility] Fluoroscopy Fluoroscopy 10755 2018 MAHESH KIM [facility] Orthopedic Splinting Short Arm Orthopedic Splinting Short Arm 69047 2018 KESHAV WEAVER Fluoroscopy Up To One Hour Physician Time Fluoroscopy Up To One Hour Physician Time [id number] 2018 KESHAV WEAVER Patient education, not otherwise cla ified, non-physician provider, individual, per se ion 2017 JAC EVANS Threshold Audiogram (Pure Tone) Automated Threshold Audiogram (Pure Tone) Automated 0208T 2017 JAC EVANS Skin Test Anergy Tuberculin Intradermal Skin Test Anergy Tuberculin Intradermal 49630 2016 ZACHARIAH SALTER IPPD; Series #: 1; .1 mL; ID; Left Arm; Mfg: Sanofi Pasteur; Lot: [id number]; VIS given. [facility] Injection, penicillin g benzathine, 100,000 units 2016 WILL INGRAM [facility] Physician Supervised Injection Intramuscular Antibiotic Physician Supervised Injection Intramuscular Antibiotic 88734 2016 WILL INGRAM [facility] Vaccines Adenovirus Type 7 Live, For Oral Use Vaccines Adenovirus Type 7 Live, For Oral Use 55496 2016 WILL INGRAM [facility] Immunization Admin Intranasal / Oral Each Additional Vaccine Immunization Admin Intranasal / Oral Each Additional Vaccine 26865 2016 WILL INGRAM [facility] Vaccines Adenovirus Type 4 Live, For Oral Use Vaccines Adenovirus Type 4 Live, For Oral Use 37073 2016 WILL INGRAM [facility] Influenza Split Virus Vaccine 0.5mL Dosage Intramuscular 2016 WILL INGRAM [facility] Immunization Administration By Injection, Each Additional Vaccine Immunization Administration By Injection, Each Additional Vaccine 39766 2016 WILL INGRAM [facility] Meningococcal Polysaccharide Diphtheria Toxoid Conjugate Vaccine 2016 WILL INGRAM Meningococcal MCV4P; Series #: 1; .5 mL; IM; Left Arm; Mfg: Sanofi Pasteur; Lot: [id number]; VIS given (Rekha: 11/04/2015). [facility] Tdap Vaccine Tdap Vaccine 29642 2016 WILL INGRAM Tdap; Series #: 1; .5 mL; IM; Right Arm; Mfg: Other; Lot: [id number]; VIS given (Rekha: 09/29/14). DoD Immunization Administration By Injection, One Vaccine Immunization Administration By Injection, One Vaccine 48894 2016 WILL INGRAM Patient education, not otherwise cla ified, non-physician provider, group, per se ion 2016 RUDDY ALMARAZ Visual Function Screening Visual Function Screening 57464 2016 NEDRA BELTRAN Threshold Audiogram (Pure Tone) Threshold Audiogram (Pure Tone) 46417 2016 [facility] Audiometry Group Testing Audiometry Group Testing 27996 2016 [facility] [place] Threshold Audiogram (Pure Tone) Automated Threshold Audiogram (Pure Tone) Automated 0208T BRITTNI SALDANA Patient education, not otherwise cla ified, non-physician provider, individual, per se ion BRITTNI SALDANA Vaccine SARS-CoV-2 mRNA-LNP Juan Luis Protein Preservative Free 100mcg/0.5mL IM Vaccine SARS-CoV-2 mRNA-LNP Juan Luis Protein Preservative Free 100mcg/0.5mL IM [address] LINCOLN SEGURA COVID-19 Moderna; Series #: 1; 0.5 mL; IM; Left Arm; Mfg: Moderna [employer] Inc.; Lot: [id number]; VIS given (Rekha: 07/06/2020). DoD Immunization Administration By Injection, One Vaccine Immunization Administration By Injection, One Vaccine 91780 LINCOLN SEGURA [facility] Vaccine SARS-CoV-2 mRNA-LNP Juan Luis Protein Preservative Free 100mcg/0.5mL IM First Dose Vaccine SARS-CoV-2 mRNA-LNP Juan Luis Protein Preservative Free 100mcg/0.5mL IM First Dose 0011A LINCOLN SEGURA [facility] Psychiatric Diagnostic Evaluation Psychiatric Diagnostic Evaluation 26118 ERICK ARREDONDO Paring / Curettage Of Benign Hyperkeratotic Lesion, Single Paring / Curettage Of Benign Hyperkeratotic Lesion, Single 64055 UMER UPTON Paring / Curettage Of Benign Hyperkeratotic Lesions, 2-4 Paring / Curettage Of Benign Hyperkeratotic Lesions, 2-4 09142 UMER UPTON Destruction Of Benign Lesion By Any Method Destruction Of Benign Lesion By Any Method 86949 UMER UPTON Non-Physician Phone Call To Patient/Provider Brief (5-10min) Non-Physician Phone Call To Patient/Provider Brief (5-10min) [id number] JELENA YOUNG Social History Combined list of [...] visit for administrative purposes. ? Clinical History: -[id number] Left Achilles rupture while running on treadmill and felt a pop. -[id number] Left Achilles repair -Engaged with [facility] and physical therapy twice weekly?post-operatively and progressing as expected. Pt. currently out of walking boot and back in regular uniform with working boots. ? ? -LIMDU initiated today [id number] -Monthly LIMDU f/u virtually due to distance. -Pt. v/u and concurs. ? 20-29 (11653)?minutes total time spent on evaluation and management.Standby was offered to the patient and documented in note if accepted.??Medications reconciled.??Care plan developed with the?patientand agreed upon.??Pt?verbalizes understanding of plan.???There were no obvious barriers to learning.? ? Luis Sky, KEHINDE, GUN NUMBERER, PUBLIC IMPROVEMENT INSPECTOR-C [place], [place], [facility] ? Extracted from:Title: LIMDU: S/P LEFT ACHILLES RUPTURE REPAIR Author: LUIS SKY NP Date: 05/16/23 1.?Rupture of left Achilles tendon 27 y/o ADM to clinic for LIMDU f/u. Pt. is engaged in care with a civilian PCM but requires this visit for administrative purposes. ? Clinical History: -[id number] Left Achilles rupture while running on treadmill and felt a pop. -[id number] Left Achilles repair -Engaged with [facility] and physical therapy post-operatively and progressing as expected. Pt. currently out of walking boot. ? ? -LIMDU initiated today -Monthly LIMDU f/u virtually due to distance. -Pt. v/u and concurs. ? 20-29 (96716)?minutes total time spent on evaluation and management.Standby was offered to the patient and documented in note if accepted.??Medications reconciled.??Care plan developed with the?patientand agreed upon.??Pt?verbalizes understanding of plan.???There were no obvious barriers to learning.? ? Luis Sky, DNP, GUN NUMBERER, PUBLIC IMPROVEMENT INSPECTOR-C , [place], [facility] ? Extracted from:Title: LIMDU: L ACHILLES RUPTURE Author: LUIS SKY NP Date: 04/25/23 1.?Rupture of left Achilles tendon 27 y/o ADM to clinic for placement on LIMDU. Pt. is engaged in care with a civilian PCM but requires this visit for administrative purposes. ? Clinical History: -[id number] Left Achilles rupture while running on treadmill and felt a pop. -[id number] Left Achilles repair -Engaged with [facility] and physical therapy post-operatively and progressing as expected. ? ? -LIMDU initiated today ; directed to Medical Boards -Monthly LIMDU f/u virtually due to distance. -Pt. v/u and concurs. ? 30-39 (33252)?minutes total time spent on evaluation and management.Standby was offered to the patient and documented in note if accepted.??Medications reconciled.??Care plan developed with the?patientand agreed upon.??Pt?verbalizes understanding of plan.???There were no obvious barriers to learning.? ? Luis Sky, DNP, GUN NUMBERER, PUBLIC IMPROVEMENT INSPECTOR-C , [place], [facility] ? 07/23/2024 Ambulatory Pharmacy Functional Status Combined list of recent functional and cognitive assessments recorded at [facility] [employer] [facility] ([facility]VA Functional [place] Measurement (FIM) Scale: 1 = Total Assistance (Subject = 0% +), 2 = Maximal Assistance (Subject = 25% +), 3 = Moderate Assistance (Subject = 50% +), 4 = Minimal Assistance (Subject = 75% +), 5 = Supervision, 6 = Modified [place] (Device), 7 = Complete [place] (Timely, Safely). Assessment Date/Time Source Assessment Type Assessment Skill Assessment Score Assessment Details No data available for this section
--- NOTE | 2024-07-23 14:53 | MHC.PC.OV ---
Vital Signs 07/23/24 14:57 Height 5 ft 7.91 in Weight 228 lb 2 oz BMI 34.8 BP 128/84 Blood Pressure Location Rt brachial Position Sitting Pulse 70 Pulse Source Pulse Oximeter Pulse Oximetry (%) 99 Oxygen Delivery Method Room Air Intake Visit Reasons: 30 min physical Intake Note: Physical. Wants to discuss carpal tunnel that happened in the and fractured finger left hand. Information Scientist Required: No Allergies No Known Allergies Allergy (Verified 07/23/24 14:53) Tobacco use date assessed: 01/02/24 Dental Screening Dental Screen Date: 01/02/24 HPI 30 min physical HPI Details History of Present Illness The patient is a 28-year-old male presenting for a routine physical examination. Neuro: patient also has a history of sleep apnea, with a follow-up with a specialist planned for October 29, 2024. Currently on amitriptyline which he finds helpful for the headaches. Has not seen Ophthalmology. GI: There is a concern about gastrointestinal issues, given a family history of colon cancer diagnosed in his mother at age 46. The patient reports alternating constipation and diarrhea for about five to six years, possibly linked to his service, with occasional dark blood in the stool. He states more often it is bright red blood per rectum that is worse when he has been constipated. There has been no prior colonoscopy, and the had diagnosed him with IBS without confirmation through endoscopic investigation. He does get intermittent pain with the symptoms in the abdomen. No rectal pain. No weight loss. No nausea or vomiting. Musculoskeletal: Lastly, the patient expressed concerns about carpal tunnel syndrome with a history of wrist pain lasting five years, primarily affecting his right hand. He has not tried any wrist splints yet. Most of the pain is on the anterior aspect of the bilateral wrists and radiate into the palm. - He states on Sunday he injured his right pinky and wonders if he fractured it. States that there was some swelling and pain. Symptoms have improved. Endo: He does have a history of impaired fasting glucose and his father he recently found out is a type 1 diabetic. Psych: Has been following with behavioral health and states that he was really recently diagnosed with PTSD and generalized anxiety. Health Maintenance - Blood work ordered: Checking for anemia, liver and kidney functions, electrolyte levels, and fasting blood glucose due to family history of diabetes. - Referral to gastroenterology for evaluation of potential IBS and consideration for colonoscopy due to family history of colon cancer. - Orthopedic referral for evaluation and management of suspected carpal tunnel syndrome. - Eye examination referral due to chronic headaches and no recent vision check. 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 - No regular eye examinations completed, despite reporting chronic headaches which could be linked to vision impairments. - No current substance use issues discussed. - Family dynamic includes parental colon cancer and diabetes history, increasing patient risks for related conditions. Review of Systems - Gastrointestinal: Reports alternating constipation and diarrhea with intermittent abdominal pain. - Musculoskeletal: Reports wrist pain with numbness and tingling in the palm and fingers, primarily on the right side. Physical Exam General: Well developed, well nourished, in no acute distress. Appears stated age. Head: Normocephalic, atraumatic. Eyes: Pupils are equal, round and reactive to light and accommodation. Conjunctivae are clear. Vision grossly normal. Ears: Tympanic membranes clear bilaterally, external auditory canal within normal limits Nose: Patent, without discharge. Mouth: There are no ulcers or lesions noted. No inflammation, no post nasal drip, no plaques nor exudates. Neck: Supple, no adenopathy or thyromegaly. Lungs: Clear to auscultation bilaterally. No rales, rhonchi or wheeze noted. Good air flow in all giang. Heart: Regular rate and rhythm. No murmurs, click, rubs or gallops are noted. Abdomen: Bowel sounds present in all quadrants. The abdomen is soft, nontender, with no masses or organomegaly noted. No hernias are noted. Musculoskeletal: Joints are nontender, without swelling, redness, or effusions. Range of motion is observed to be normal. Reports wrist pain, possibly carpal tunnel syndrome, with numbness and tingling, more pronounced in the right hand. Pulses: Peripheral pulses are equal and palpable bilaterally. Extremities: No clubbing, cyanosis nor edema is noted. Neurologic: Gait and station normal. Cranial Nerves 2-12 intact. Motor strength grossly symmetrical and intact. No sensory loss. Balance normal. Skin: No rashes, ulcers, or lesions noted. Turgor is good. Skin color is good. Hair and nails are without abnormalities. Psych: Normal eye contact, affect and mood appropriate, and normal interactions. Patient is alert and appropriate to context. Results - Labs: Blood work ordered (anemia check, liver/kidney function, electrolytes, fasting blood sugar). - Diagnostic: An ultrasound of the abdomen was ordered for intermittent abdominal discomfort. Wrist and pinky x-rays ordered to assess for carpal tunnel syndrome and recent injury respectively. Plan - Perform comprehensive blood panel, including fasting glucose due to diabetes family history. - Arrange gastroenterology referral for colon cancer screening colonoscopy) due to family history. - Follow up with orthopedics for carpal tunnel syndrome assessment and management. - Recommend wrist splints for carpal tunnel syndrome symptoms; anti-inflammatories for two weeks. - Seek eye examination to address headaches related to vision issues and rule out glaucoma. - Conduct hand x-rays to confirm the carpal tunnel syndrome and assess recent pinky injury. - Order abdominal ultrasound to evaluate intermittent abdominal discomfort. Patient was informed and verbally consented to the use of an ambient scribe for clinic note documentation during this visit. Discussion Notes During the visit, I discussed with the patient the necessity of blood work to check for anemia and evaluate liver, kidney, and thyroid functions, as well as fasting blood glucose given his family history of type 1 diabetes. We reviewed the importance of seeing a food and drug research scientist for a potential colonoscopy due to is mother's diagnosis of colon cancer, focusing on starting screening a decade before his mother's diagnosis. For his chronic headaches and sleep apnea, we affirmed the neurology follow-up and highlighted the necessity of an eye exam. I advised that carpal tunnel syndrome is likely the cause of his wrist symptoms and recommended a conservative trial with wrist splints and NSAIDs before seeing an research quality assurance specialist. Concerns about carpal tunnel were further addressed with a plan to conduct nerve studies and wrist x-rays. Finally, we briefly discussed the potential implications of HSV transmission during the conversation. Patient Instructions - Complete fasting blood tests as advised. - Await contact from gastroenterology regarding consultation appointment; call if symptoms worsen. - Begin using wrist braces at night and possibly during work hours, and take NSAIDs as prescribed. - Schedule and attend an eye exam. - Monitor symptoms of abdominal pain or changes in bowel habits; inform if conditions worsen. - Attend orthopedic and gastroenterology follow-ups. - If any worsening of pinky pain or swelling occurs, consult promptly. 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 Cognitive needs: No Hearing needs: No Vision needs: No Questionnaire Thrive Questionnaire Date Thrive assessed: 04/30/24 I am a: Patient What is your living situation today?: I have a steady place to live Within the past 12 months, did the food you bought not last and you didn't have the money to get more?: Never true Within the past 12 months, did you worry whether your food would run out before you got money to buy more?: Never true Do you have trouble paying for medicines?: No Do you have trouble getting transportation to medical appointments?: Yes Do you have trouble paying your heating and electricity bill?: No Do you have trouble taking care of your child, family member or friend?: No Do you have trouble with day-to-day activities such as bathing, preparing meals, shopping, managing finances, etc.?: No Are you currently unemployed and looking for a job?: No Are you interested in more education?: No Please select the resources that you would like help with: None Currently or been in a relationship where the following occur: No concerns reported THRIVE Score: 1 ROSHNI-7 AMB Questionnaire ROSHNI-7 Date ROSHNI - 7 assessed: 01/02/24 Source: Developed by Drs. Tejinder Li, Mariah Rosario, Yogesh Michael and colleagues, with an educational alyssa from [employer]. Physical exam (Primary Care) Tobacco/Smoking Status: Tobacco use Status Tobacco use date assessed 01/02/24 04/30/24 08:50 Patient Tobacco Use Status Never used Tobacco 04/30/24 08:50 e-Cigarette/Vaping Use Never Used 04/30/24 08:50 Thrive Assessment: Date of Thrive Assessment Date Thrive assessed 04/30/24 07/16/24 12:13 Currently or been in a relationship where the following occur: No concerns reported Coding Level of Care Code Est Pt Level 3 (13369) Est Pt Prev Care 18-39y(82688) Diagnoses Routine general medical examination at [facility] care facility Z00.00 Sleep apnea G47.30 IFG (impaired fasting glucose) R73.01 Family history of colon cancer in mother Z80.0 Alternating constipation and diarrhea R19.8 Blood per rectum K62.5 Abdominal discomfort R10.9 Family history of type 1 diabetes mellitus Z83.3 Bilateral wrist pain M25.531; M25.532 CTS (carpal tunnel syndrome) G56.00 Finger pain, right M79.644 Assessment & Plan Assessment & Plan (1) Routine general medical examination at [facility] facility: Code(s): Z00.00 - Encounter for general adult medical examination without abnormal findings (2) Sleep apnea: Comment: Mild degree of sleep apnea. AHI was 8/hr and oxygen ely was 85% Code(s): G47.30 - Sleep apnea, unspecified Category: Medical (3) IFG (impaired fasting glucose): Code(s): R73.01 - Impaired fasting glucose Category: Medical (4) Family history of colon cancer in mother: Code(s): Z80.0 - Family history of malignant neoplasm of digestive organs Category: Medical (5) Alternating constipation and diarrhea: Code(s): R19.8 - Other specified symptoms and signs involving the digestive system and abdomen Category: Medical (6) Blood per rectum: Code(s): K62.5 - Hemorrhage of anus and rectum Category: Medical (7) Abdominal discomfort: Code(s): R10.9 - Unspecified abdominal pain Category: Medical (8) Family history of type 1 diabetes mellitus: Code(s): Z83.3 - Family history of diabetes mellitus Category: Medical (9) Bilateral wrist pain: Code(s): M25.531 - Pain in right wrist; M25.532 - Pain in left wrist Category: Medical (10) CTS (carpal tunnel syndrome): Code(s): G56.00 - Carpal tunnel syndrome, unspecified upper limb Category: Medical (11) Finger pain, right: Code(s): M79.644 - Pain in right finger(s) Category: Medical Plan . Orders: Orders Complete Blood Count Auto Diff Today G47.30 - Sleep apnea, unspecified, R73.01 - Impaired fasting glucose, Z00.00 - Encounter for general adult medical examination without abnormal findings, Z00.8 - Encounter for other general examination Hemoglobin A1c Today G47.30 - Sleep apnea, unspecified, R73.01 - Impaired fasting glucose, Z00.00 - Encounter for general adult medical examination without abnormal findings, Z00.8 - Encounter for other general examination TSH reflex Free T4 Today G47.30 - Sleep apnea, unspecified, R73.01 - Impaired fasting glucose, Z00.00 - Encounter for general adult medical examination without abnormal findings, Z00.8 - Encounter for other general examination Islet Cell Antibody Scrn/Titer Today R73.01 - Impaired fasting glucose, Z83.3 - Family history of diabetes mellitus XR wrist LT min 3V Today G56.00 - Carpal tunnel syndrome, unspecified upper limb, M25.531 - Pain in right wrist, M25.532 - Pain in left wrist XR wrist RT min 3V Today G56.00 - Carpal tunnel syndrome, unspecified upper limb, M25.531 - Pain in right wrist, M25.532 - Pain in left wrist NE electromyogram (EMG) Today G56.00 - Carpal tunnel syndrome, unspecified upper limb, M25.531 - Pain in right wrist, M25.532 - Pain in left wrist XR finger RT min 2V Today M79.644 - Pain in right finger(s) Comprehensive [place]. Panel Fast Today G47.30 - Sleep apnea, unspecified, R73.01 - Impaired fasting glucose, Z00.00 - Encounter for general adult medical examination without abnormal findings, Z00.8 - Encounter for other general examination Lipid Panel Today G47.30 - Sleep apnea, unspecified, R73.01 - Impaired fasting glucose, Z00.00 - Encounter for general adult medical examination without abnormal findings, Z00.8 - Encounter for other general examination US abdomen complete Today R10.9 - Unspecified abdominal pain Glutamic acid decarboxylase Ab Today R73.01 - Impaired fasting glucose, Z83.3 - Family history of diabetes mellitus Referrals Orthopedics Referral G56.00 - Carpal tunnel syndrome, unspecified upper limb, M25.531 - Pain in right wrist, M25.532 - Pain in left wrist Gastroenterology Referral K62.5 - Hemorrhage of anus and rectum, R19.8 - Other specified symptoms and signs involving the digestive system and abdomen, Z80.0 - Family history of malignant neoplasm of digestive organs Medications: New naproxen 500 mg PO BID 28 tabs 0RF
[2024-07-23 14:57] VITALS: BP 128/84; PULSE 70; O2SAT 99; BMI 34.8
== END 2024-07-23 15:29 | disposition home or self-care (01) ==
PROVIDERS: PCP Family Medicine; Visit Provider Physician Assistant
DX: Z00.00 Encounter for general adult medical examination without abnormal findings (principal); M79.644 Pain in right finger(s); G56.00 Carpal tunnel syndrome, unspecified upper limb; G47.30 Sleep apnea, unspecified; R73.01 Impaired fasting glucose; Z80.0 Family history of malignant neoplasm of digestive organs; R19.8 Other specified symptoms and signs involving the digestive system and abdomen; K62.5 Hemorrhage of anus and rectum; R10.9 Unspecified abdominal pain; Z83.3 Family history of diabetes mellitus; M25.531 Pain in right wrist; M25.532 Pain in left wrist

== ENCOUNTER → 2024-07-23 14:28 | Outpatient (BNVA) | payer OTHER, SELFPAY | PROVIDERS: PCP Family Medicine; Visit Provider Physician Assistant | DX: Z00.00 Encounter for general adult medical examination without abnormal findings (principal); G47.30 Sleep apnea, unspecified; R73.01 Impaired fasting glucose; R19.8 Other specified symptoms and signs involving the digestive system and abdomen; K62.5 Hemorrhage of anus and rectum; R10.9 Unspecified abdominal pain; M25.531 Pain in right wrist; M25.532 Pain in left wrist; G56.00 Carpal tunnel syndrome, unspecified upper limb; M79.644 Pain in right finger(s); Z83.3 Family history of diabetes mellitus; Z80.0 Family history of malignant neoplasm of digestive organs | CPT/HCPCS: 99212 ==

== ENCOUNTER 2024-08-05 08:25 | Outpatient (REF) | payer OTHER, SELFPAY ==
--- NOTE | ~2024-08-05 | XR_ITS ---
CLINICAL HISTORY: M25.531 - Pain in right wrist 4 views left wrist Comparison: None Findings: No carpal bone fractures or carpal malalignment. Distal radiocarpal joint intact. Radial and ulnar styloid preserved. Suspect a small geode within the scaphoid. No erosive changes Bone mineralization and soft tissues within normal limits. No radiopaque foreign body. Impression: 1. Suspect a small geode distal scaphoid. This document has been electronically signed by: Noah Lerma MD on 08/07/2024 11:31:03
--- NOTE | ~2024-08-05 | XR_ITS ---
CLINICAL HISTORY: G56.00 - Carpal tunnel syndrome, unspecified upper limb 4 views right wrist Comparison: None Findings: No carpal bone fractures or carpal malalignment. Distal radiocarpal joint intact. Radial and ulnar styloid preserved. Suspect subtle geodes of the waist of the scaphoid. No erosive disease. Bone mineralization and soft tissues within normal limits. Bracelet was not removed Impression: 1. Suspect subtle geodes of the scaphoid. No fractures or bony destructive processes This document has been electronically signed by: Noah Lerma MD on 08/07/2024 11:42:00
--- NOTE | ~2024-08-05 | XR_ITS ---
CLINICAL HISTORY: M79.644 - Pain in right finger(s) 3 views right 5th digit including PA hand Comparison: None Findings: Accessory ossicles or remote avulsion fracture dorsal base 5th middle phalanx. Correlate with palpation. Joint intervals are preserved. No marginal erosions or overhanging osteophytes. No periostitis or bony destruction. No radiopaque foreign body. Normal bone mineralization and soft tissues Impression: 1. Accessory ossicles or remote avulsion fracture dorsal base 5th middle phalanx correlate with palpation This document has been electronically signed by: Noah Lerma MD on 08/07/2024 11:26:33
--- OUTSIDE RECORDS SUMMARY | 2024-08-05 08:27 | XMS_ITS | Continuity of Care Document ---
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 It does not include entries that were removed or entered in error. 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 BOTTLE Active [id number] 2023 90 Pharmac y Data Transac tion Service Facilit y AMITRIPTYLI NE HCL (amitriptyl ine HCl), 25 MG, TABLET, ORAL, ZYDUS PHARMACEU, 1000 ea. BOTTLE Active [id number] 2023 90 Pharmac y Data Transac tion Service Facilit y escitalopra m 20 mg oral tablet 90 EA, 0 Refill(s ), TAKE 1/2 TABLET BY MOUTH EVERY DAY FOR 2 WEEKS THEN INCREASE TO TABLET DAILY, 0 total refill(s ), Soft Stop Ordered [facility] [place] KETOCONAZOL E (ketoconazo le), 2 %, CREAM (G), TOPICAL, TEVA [place], 60 g TUBE Active [id number] 2023 60 Pharmac y Data Transac tion Service Facilit y meloxicam 15 mg oral tablet 1 tab(s), Oral, Daily, # 30 tab(s), 0 total refill(s ), Maintena nce Oral (given by mouth) Ordered 30.0 [facility] [place] ondansetron 4 mg oral tablet 21 EA, 0 Refill(s ), TAKE 1 TABLET BY MOUTH EVERY 8 HOURS NEEDED FOR NAUSEA, 0 total refill(s ), Soft Stop Discont inued 05/16/2023 [facility] [place] ONDANSETRON ODT (ONDANSETRO N), 4 MG, TAB RAPDIS, ORAL, AUROBINDO PHARM, 30 ea. BLIST PACK Cancele d [id number] : 2023 0 Pharmac y Data Transac tion Service Facilit y oxyCODONE 5 mg oral tablet 30 EA, 0 Refill(s ), TAKE 1 TABLET BY MOUTH EVERY 4 TO 6 HOURS NEEDED FOR PAIN SEVERE. DO NOT DRIVE, 0 total refill(s ), Soft Stop Discont inued 05/16/2023 [facility] [place] SUMATRIPTAN SUCCINATE (sumatripta n succinate), 25 MG, TABLET, ORAL, Dydra., 9 ea. BLIST PACK Active [id number] 2023 10 Pharmac y Data Transac tion Service Facilit y Allergies, Adverse Reactions, Alerts Combined list of allergies from Department of Defense and Veterans Affairs facilities. It does not include entries that were removed or entered in error. Substance Category Reaction Severity Reaction type Status Date Reported Comments Source No Known Allergies Drug allergy (disorder) active 9 [facility] Immunizations Combined list of available immunizations from the Department of Defense and Veterans Affairs facilities. Immunization Series Date Given Administered By Site Reaction Lot Number CVX Code Drug Supervisor Fruit Grading Status Comments Source COVID Vaccine Moderna 2021 TRS 207 complet ed COVID Vaccine Moderna 01/20/22 Given Ambulat ory Pharmac y COVID-19, mRNA, LNP-S, PF, 100 mcg or 50 mcg dose 2021 RAZO, () Not Given COVID-19, mRNA, LNP-S, PF, 100 mcg or 50 mcg dose DoD influenza, injectable, quadrivalent- pf 2020 [id number] 150 Seqirus complet ed influenza , injectabl e, quadrival ent-pf 05/27/21 Given Ambulat ory Pharmac y influenza, injectable, quadrivalent- pf 2020 [id number] 463 150 Seqirus complet ed influenza , injectabl e, quadrival ent-pf 05/27/21 Given Ambulat ory Pharmac y Influenza, injectable, quadrivalent, preservative free 0 2020 [id number] 463 150 Seqirus (SEQ) complet ed Influenza , injectabl e, quadrival ent, preservat enma free DoD typhoid Vi capsular polysaccharid e vac 2020 [id number] 101 sanofi pasteur complet ed typhoid Vi capsular polysacch aride vac 12/11/20 Given Ambulat ory Pharmac y yellow fever vaccine 2020 [id number] 37 sanofi pasteur complet ed yellow fever vaccine 12/11/20 Given Ambulat ory Pharmac y meningococcal A,C,Y,W-135 (MCV4P) 2020 [id number] 114 sanofi pasteur complet ed meningoco ccal A,C,Y,W-1 35 (MCV4P) 12/11/20 Given Ambulat ory Pharmac y yellow fever vaccine 2020 [id number] 37 sanofi pasteur complet ed yellow fever vaccine 12/11/20 Given Ambulat ory Pharmac y typhoid Vi capsular polysaccharid e vac 2020 [id number] 101 sanofi pasteur complet ed typhoid Vi capsular polysacch aride vac 12/11/20 Given Ambulat ory Pharmac y meningococcal A,C,Y,W-135 (MCV4P) 2020 [id number] 114 sanofi pasteur complet ed meningoco ccal A,C,Y,W-1 35 (MCV4P) 12/11/20 Given Ambulat ory Pharmac y yellow fever vaccine 0 2020 [id number] 37 Sanofi Pasteur (PMC) complet ed yellow fever vaccine DoD typhoid Vi capsular polysaccharid e vaccine 2 2020 [id number] 101 Sanofi Pasteur (PMC) complet ed typhoid Vi capsular polysacch aride vaccine DoD meningococcal polysaccharid e (groups A, C, Y and W-135) diphtheria toxoid conjugate vaccine (MCV4P) 0 2020 [id number] 114 Sanofi Pasteur ([facility]) complet ed meningoco ccal polysacch aride (groups A, C, Y and W-135) diphtheri a toxoid conjugate vaccine (MCV4P) DoD COVID Vaccine Moderna 2020 [id number] 207 complet ed COVID Vaccine Moderna 10/24/20 Given Ambulat ory Pharmac y SARS-COV-2 (COVID-19) vaccine, mRNA, spike protein, LNP, preservative free, 100 mcg or 50 mcg dose 2 2020 [id number] 207 Moderna US, Inc. (MOD) complet ed SARS-COV- 2 (COVID-19 ) vaccine, mRNA, spike protein, LNP, preservat enma free, 100 mcg or 50 mcg dose DoD COVID Vaccine Moderna 2020 [id number] 207 complet ed COVID Vaccine Moderna 09/24/20 Given Ambulat ory Pharmac y COVID Vaccine Moderna 2020 zzLef t Arm [id number] 207 complet ed COVID Vaccine Moderna 09/24/20 Given Ambulat ory Pharmac y SARS-COV-2 (COVID-19) vaccine, mRNA, spike protein, LNP, preservative free, 100 mcg or 50 mcg dose 1 2020 LINCOLN SEGURA [id number] 207 Moderna US, Inc. (MOD) complet ed SARS-COV- 2 (COVID-19 ) vaccine, mRNA, spike protein, LNP, preservat enma free, 100 mcg or 50 mcg dose DoD influenza, injectable, quadrivalent 2019 [id number] 167 158 Seqirus complet ed influenza , injectabl e, quadrival ent 05/25/20 Given Ambulat ory Pharmac y influenza, injectable, quadrivalent 2019 [id number] 167 158 Seqirus complet ed influenza , injectabl e, quadrival ent 05/25/20 Given Ambulat ory Pharmac y influenza, injectable, quadrivalent, contains preservative 0 2019 [id number] 167 158 Seqirus (SEQ) complet ed influenza , injectabl e, quadrival ent, contains preservat enma DoD typhoid Vi capsular polysaccharid e vac 2018 (C) [id number] 101 sanofi pasteur complet ed typhoid Vi capsular polysacch aride vac 03/24/19 Given Ambulat ory Pharmac y typhoid Vi capsular polysaccharid e vac 2018 C [id number] 101 sanofi pasteur complet ed typhoid Vi capsular polysacch aride vac 03/24/19 Given Ambulat ory Pharmac y typhoid Vi capsular polysaccharid e vaccine 1 2018 C [id number] 101 Sanofi Pasteur (PMC) complet ed typhoid Vi capsular polysacch aride vaccine DoD influenza, injectable, quadrivalent 2017 [id number] 158 GlaxoSmithKli ne complet ed influenza , injectabl e, quadrival ent 07/24/18 Given Ambulat ory Pharmac y influenza, injectable, quadrivalent, contains preservative 0 [id number] [address] [facility] influenza , injectabl e, quadrival ent, contains preservat enma DoD anthrax vaccine 2017 [id number] 24 Emergent [employer] complet ed anthrax vaccine 12/05/17 Given Ambulat ory Pharmac y anthrax vaccine 2017 [id number] 24 [employer] complet ed anthrax vaccine 12/05/17 Given Ambulat ory Pharmac y anthrax vaccine 2 2017 [id number] 24 [employer] [place] (MIP) complet ed anthrax vaccine DoD anthrax vaccine 2017 [id number] 24 [employer] complet ed anthrax vaccine 11/07/17 Given Ambulat ory Pharmac y anthrax vaccine 1 2017 [id number] 24 [employer] [place] (MIP) complet [...] dosage DoD influenza, injectable, quadrivalent 10/27/ 2017 [id number] 158 Seqirus complet ed influenza , injectabl e, quadrival ent 06/01/17 Given Ambulat ory Pharmac y influenza, injectable, quadrivalent [id number] 158 Seqirus complet ed influenza , injectabl e, quadrival ent 06/01/17 Given Ambulat ory Pharmac y influenza, injectable, quadrivalent, contains preservative 0 2016 [id number] 158 Seqirus (SEQ) comple t ed influenza , injectabl e, quadrival ent, contains preservat enma DoD poliovirus vaccine, inactivated 2016 [id number] 10 sanofi pasteur complet ed polioviru s vaccine, inactivat ed 09/26/16 Given Ambulat ory Pharmac y poliovirus vaccine, inactivated 2016 zzLef t Arm [id number] 10 sanofi pasteur complet ed polioviru s vaccine, inactivat ed 09/26/16 Given Ambulat ory Pharmac y poliovirus vaccine, inactivated 1 2016 NABEEL GOMEZ [id number] 10 Sanofi Pasteur ([facility]) complet ed polioviru s vaccine, inactivat ed [...] purified protein derivative 2016 zzLef t Arm [id number] 96 sanofi pasteur complet ed Patient Tolerance : Negative Ambulat ory Pharmac y tuberculin skin test; purified protein derivative solution, intradermal 0 2016 ZACHARIAH SALTER [id number] 96 Sanofi Pasteur (PMC) complet ed tuberculi n skin test; purified protein derivativ e solution, intraderm al DoD influenza, seasonal, injectable-pf 2016 [id number] 140 Seqirus complet ed influenza , seasonal, injectabl e-pf 08/23/16 Given Ambulat ory Pharmac y tetanus, diphtheria, acellular pertu is 2016 [id number] 115 Unknown complet ed tetanus, diphtheri a, acellular pertussis 08/23/16 Given Ambulat ory Pharmac y adenovirus vaccine, live 2016 [id number] 6 143 Unknown complet ed adenoviru s vaccine, live 08/23/16 Given Ambulat ory Pharmac y influenza, seasonal, injectable-pf 2016 zzLef t Arm [id number] 140 Seqirus complet ed influenza , seasonal, injectabl e-pf 08/23/16 Given Ambulat ory Pharmac y meningococcal A,C,Y,W-135 (MCV4P) 2016 zzLef t Arm [id number] 114 sanofi pasteur complet ed meningoco ccal A,C,Y,W-1 35 (MCV4P) 08/23/16 Given Ambulat ory Pharmac y tetanus, diphtheria, acellular pertu is [facility] [id number] [facility] Unknown complet ed tetanus, diphtheri a, acellular pertussis 08/23/16 Given Ambulat ory Pharmac y adenovirus vaccine, live 2016 [id number] 6 143 Unknown complet ed adenoviru s vaccine, live 08/23/16 Given Ambulat ory Pharmac y meningococcal polysaccharid e (groups A, C, Y and W-135) diphtheria toxoid conjugate vaccine (MCV4P) 1 2016 WILL INGRAM [id number] 114 Sanofi Pasteur (PMC) complet ed meningoco [...] injectable, preservative free 1 2016 WILL INGRAM [id number] 140 Seqirus (SEQ) complet ed Influenza , seasonal, injectabl e, preservat enma free DoD Adenovirus, type 4 and type 7, live, oral 1 2016 WILL INGRAM [id number] 6 143 Other (OTH) complet ed Adenoviru [...] months. 2) Encounters from the Department of [email or web address] facilities going back up to 280 months. Location Location Details Encounter Type Encounter Number Reason For Visit Attending Provider ADM Date DC Date Status Disposition Source One or More A Facilitie s TECHNICAL SUPPORT DIRECTOR History 08/06 One or More A Facilit ies TECHNICAL SUPPORT DIRECTOR [facility](Au diology [facility] 1523) OUTPATIENT [id number] SOL BAHENA 08/22 Released w/o Limitations [facility]( Audiolo gy [facility] 1523) [facility](Op tometry [facility] 1523) OUTPATIENT [id number] NEDRA BELTRAN 08/22 Released w/o Limitations [facility]( Optomet ry [facility] 1523) [facility] Male) OUTPATIENT [id number] Notes Entered by: RUDDY ALMARAZ 23 Aug 2016 1305 ------- ------- ------- ------- -- [facility] w/o Limitations [facility]( [facility] Male) [facility](Im munizatio n 1523) OUTPATIENT [id number] Notes Entered by: WILL INGRAM 23 Aug 2016 1653 ------- ------- ------- ------- -- P4 Immuniz ations ELLIE MISHRA Yessi 08/23 Released w/o Limitations [facility]( Immuniz ation 1523) [facility](Pr ev Med Immunizat ions/237) OUTPATIENT [id number] Notes Entered by: ZACHARIAH SALTER 29 Aug 2016 1406 ------- ------- ------- ------- -- TST PPD TB Testing ARDONJENNIFER 08/29 Released w/o Limitations [facility]( Prev Med Immuniz ations/ 237) [facility](Ho nor (Red) 1007) OUTPATIENT [id number] Notes Entered by: СЕРГЕЙ ROBERTS 26 Sep 2016 1102 ------- ------- ------- ------- -- VERNON Harmon 09/26 Released w/o Limitations [facility]( [place] (Red) 1007) [facility](Emergen cy Medicine NMCP) OUTPATIENT [id number] EDEN ASHFORD 01/18 Released w/o Limitations [facility](Mercedes rgency Medicin e NMCP) Theater Facility OUTPATIENT [id number] Theater Provider 05/10 Released w/o Limitations Theater Facilit y [facility](Hearing Cons [place]) OUTPATIENT [id number] Notes Entered by: JANNETH EVANS 09 Oct 2017 1451 ------- ------- ------- ------- -- Annual JAC EVANS 10/09 Released w/o Limitations [facility](Hea ring Cons [place] Sta) Theater Facility OUTPATIENT [id number] Theater Provider 11/07 Released w/o Limitations Theater Facilit y [facility](Emergen cy Medicine NM[facility]) OUTPATIENT [id number] CANDICE ESCALANTE 11/20 Released w/o Limitations [facility](Mercedes rgency Medicin e NMCP) [facility](Acute Care Ortho NMCP) OUTPATIENT [id number] Notes Entered by: KESHAV WEAVER 20 Nov 2018 0415 ------- ------- ------- ------- -- right small finger fractur e WAQAR ROBLEDO 11/20 Released with Work/Duty Limitations [facility](Acu te Care Ortho NMCP) [facility](Hand Surg [facility]) OUTPATIENT [id number] tracker right small finger fx MIRIAM KIM 11/28 Released with Work/Duty Limitations [facility](Fung d Surg [facility]) [facility](Hand Surg [facility]) OUTPATIENT [id number] f/u visit on rt.MIRIAM GONZALEZ 12/19 Released with Work/Duty Limitations [facility](Fung d Surg [facility]) [facility](Occupat ional Therapy Hand Clinic [facility]) OUTPATIENT [id number] MARY Garcia 12/19 Released w/o Limitations [facility](Occ upation al Therapy Hand Clinic NMCP) [facility](Hearing Cons [place]) OUTPATIENT [id number] BRITTNI SALDANA 12/20 Released w/o Limitations [facility](Hea ring Cons [place]) [facility](Optomet ry [place]) OUTPATIENT [id number] EYE EXAM KESHAV CAI 01/09 Released w/o Limitations [facility](Opt ometry [place]) [facility](Hand Surg NM[facility]) OUTPATIENT [id number] f/u right MIRIAM GONZALEZ 02/27 Released w/o Limitations [facility](Fung d Surg [facility]) [facility] NavSta T2) OUTPATIENT [id number] LUIS Denise 05/28 Released w/o Limitations [facility] T[facility] [place] (Hearing Cons [place] Sta) OUTPATIENT [id number] BRITTNI SALDANA 01/06 Released w/o Limitations [facility] [place]) [facility](Hearing Cons [place]) OUTPATIENT [id number] SINGHJESUS EDITA 01/07 Released w/o Limitations [facility](Hea ring Cons [place]) [facility](Emergen cy Medicine [facility]) OUTPATIENT [id number] LEE ANN MALONE 03/31 Released w/o Limitations [facility](Mercedes rgency Medicin e NMCP) Theater Facility OUTPATIENT [id number] Theater Provider 04/14 Released with Work/Duty Limitations Theater Facilit y [facility](Immuniz ations [facility]) OUTPATIENT [id number] Notes Entered by: MADELYN HUYNH 24 Sep 2020 0951 ------- ------- ------- ------- -- LINCOLN ANSARI 09/24 Released w/o Limitations [facility](Imm unizati ons [facility] ) Theater Facility OUTPATIENT [id number] Theater Provider 12/21 Released w/o Limitations Theater Facilit y [facility](Derm [facility]ology - [facility]) OUTPATIENT [id number] UMER Moralez 01/11 Released w/o Limitations [facility](De rmatolo gy - [facility]) [facility](Fami ly Medicine ([facility])) TELE CONSULT [id number] Notes Entered by: ALONZO CARBONE 26 Jan 2021 1048 ------- ------- ------- ------- -- PT REQUEST A PRESCRI PTION JELENA YOUNG 01/26 Other Not Elsewhere Classified [facility](Fa suad Medicin e ([facility])) [facility](Emergen cy Medicine [facility]) OUTPATIENT [id number] FAYE-NEGRO ALMANZAR 06/20 Released w/o Limitations [facility](Mercedes rgency Medicin e NM[facility]) [facility]) OUTPATIENT [id number] PHA-NON STUDENT MIRIAM BECKER 01/19 Released w/o Limitations [facility]( [facility] Read[facility] ss [facility]) Procedures Combined list of: 1) Procedures from Department of Veterans Affairs facilities going back up to thelast 18 months, not all VA non-surgical procedures are included; 2) All procedures from the Department of Defense facilities. Procedure Procedure Type Code Date Perfomer Comments Sour e Repair, primary, open or percutaneous, ruptured Achilles tendon; Repair, primary, open or percutaneous, ruptured Achilles tendon; 34068 2022 [facility] [place] Extraction, erupted tooth or exposed root (elevation and/or forceps removal) 2016 [facility] [place] TELE ASSESS & MGT SRV PROV QUAL [...] ADDITIONAL VACCINE (SINGLE OR COMBINATION VACCINE/TOXOID) 2016 [facility] PATIENT EDUCATION, NOT OTHERWISE CLASSIFIED, NON-PHYSICIAN PROVIDER, GROUP, PER SESSION 2016 DoD VIS FUNCT SCREEN,AUTOMAT/SEMI -AUTOMAT BILAT QUANT DETERM VISUAL ACUITY,OCULAR ALIGN,COLOR VISION,PSEUDOISOCHR OMAT PLATES,& FIELD VIS (MAY INC ALL/SOME SCRN DETERM FOR CONTRAST SENSITIV,VIS UND GLARE) 2016 [facility] AUDIOMETRIC TESTING OF GROUPS 2016 [facility] KNEE ORTHOSIS, IMMOBILIZER, CANVAS LONGITUDINAL, PREFABRICATED, [id number] 2020 [facility] IMMUNIZATION ADM,INTRAMUSCULAR INJECTION OF SEVERE AC RESPIRATORY SYNDROME CORONAVIR 2 (SARSCOV-2) (CORONAVIR DIS [COVID-19]) VACCINE,MRNALNP,SPI KE PROT,PRESERVATIVE FREE,100 MCG/0.5ML DOSAG;1ST DOSE 2020 [facility] INJECTION, KETOROLAC TROMETHAMINE, PER 15 MG 2019 [facility] PATIENT EDUCATION, NOT OTHERWISE CLASSIFIED, NON-PHYSICIAN PROVIDER, INDIVIDUAL, PER SESSION 2019 [facility] PATIENT EDUCATION, NOT OTHERWISE CLASSIFIED, NON-PHYSICIAN PROVIDER, INDIVIDUAL, PER SESSION 2019 [facility] DETERMINATION OF REFRACTIVE STATE 2018 [facility] PATIENT EDUCATION, NOT OTHERWISE CLASSIFIED, NON-PHYSICIAN PROVIDER, INDIVIDUAL, PER SESSION 2018 [facility] FINGER ORTHOSIS, WITHOUT JOINTS, MAY INCLUDE SOFT INTERFACE, CUSTOM FABRICATED INCLUDES FITTING AND ADJUSTMENT 2018 [facility] UNLISTED FLUOROSCOPIC PROCEDURE (EG, DIAGNOSTIC, INTERVENTIONAL) 2018 [facility] APPLICATION OF SHORT ARM SPLINT (FOREARM TO HAND); STATIC 2018 [facility] PRESCRIPTION DRUG, ORAL, NONCHEMOTHERAPEUTIC , NOT OTHERWISE SPECIFIED 2018 [facility] PATIENT EDUCATION, NOT OTHERWISE CLASSIFIED, NON-PHYSICIAN PROVIDER, INDIVIDUAL, PER SESSION 2017 [facility] Determination Of Refractive State Determination Of Refractive State 59987 2018 KESHAV CAI [facility] Ophthalmological New Patient Start Comprehensive Care Ophthalmological New Patient Start Comprehensive Care 04943 2018 KESHAV CAI [facility] Patient education, not otherwise cla ified, non-physician provider, individual, per se ion 2018 PACO CASTELLANOS Threshold Audiogram (Pure Tone) Automated Threshold Audiogram (Pure Tone) Automated 0208T 2018 PACO CASTELLANOS [facility] Finger orthosis, without joints, may include soft interface, custom fabricated, includes fitting and adjustment 2018 MARY LUIS [facility] Physical Therapy Education Orthotics Training Physical Therapy Education Orthotics Training 03511 2018 MARY LUIS [facility] Fluoroscopy Fluoroscopy 68416 2018 MAHESH KIM [facility] Orthopedic Splinting Short Arm Orthopedic Splinting Short Arm 25789 2018 KESHAV WEAVER Fluoroscopy Up To One Hour Physician Time Fluoroscopy Up To One Hour Physician Time 13725 2018 KESHAV WEAVER Patient education, not otherwise cla ified, non-physician provider, individual, per se ion 2017 JAC EVANS Threshold Audiogram (Pure Tone) Automated Threshold Audiogram (Pure Tone) Automated 0208T 2017 JAC EVANS Skin Test Anergy Tuberculin Intradermal Skin Test Anergy Tuberculin Intradermal 80504 2016 ZACHARIAH SALTER IPPD; Series #: 1; .1 mL; ID; Left Arm; Mfg: Sanofi Pasteur; Lot: [id number]; VIS given. [facility] Injection, penicillin g benzathine, 100,000 units 2016 WILL INGRAM [facility] Physician Supervised Injection Intramuscular Antibiotic Physician Supervised Injection Intramuscular Antibiotic 74268 2016 WILL INGRAM [facility] Vaccines Adenovirus Type 7 Live, For Oral Use Vaccines Adenovirus Type 7 Live, For Oral Use 55214 2016 WILL INGRAM [facility] Immunization Admin Intranasal / Oral Each Additional Vaccine Immunization Admin Intranasal / Oral Each Additional Vaccine 39206 2016 WILL INGRAM [facility] Vaccines Adenovirus Type 4 Live, For Oral Use Vaccines Adenovirus Type 4 Live, For Oral Use 80687 2016 WILL INGRAM [facility] Influenza Split Virus Vaccine 0.5mL Dosage Intramuscular 2016 WILL INGRAM [facility] Immunization Administration By Injection, Each Additional Vaccine Immunization Administration By Injection, Each Additional Vaccine 69762 2016 WILL INGRAM [facility] Meningococcal Polysaccharide Diphtheria Toxoid Conjugate Vaccine 2016 WILL INGRAM Meningococcal MCV4P; Series #: 1; .5 mL; IM; Left Arm; Mfg: Sanofi Pasteur; Lot: [id number]; VIS given (Rekha: 11/04/2015). [facility] Tdap Vaccine Tdap Vaccine 54929 2016 WILL INGRAM Tdap; Series #: 1; .5 mL; IM; Right Arm; Mfg: Other; Lot: [id number]; VIS given (Rekha: 09/29/14). DoD Immunization Administration By Injection, One Vaccine Immunization Administration By Injection, One Vaccine 82272 2016 WILL INGRAM Patient education, not otherwise cla ified, non-physician provider, group, per se ion 2016 RUDDY ALMARAZ Visual Function Screening Visual Function Screening 45822 2016 NEDRA BELTRAN Threshold Audiogram (Pure Tone) Threshold Audiogram (Pure Tone) 10841 2016 SOL BAHENA Audiometry Group Testing Audiometry Group Testing 70135 2016 [place] Threshold Audiogram (Pure Tone) Automated Threshold Audiogram (Pure Tone) Automated 0208T BRITTNI SALDANA Patient education, not otherwise cla ified, non-physician provider, individual, per se ion BRITTNI SALDANA Vaccine SARS-CoV-2 mRNA-LNP Juan Luis Protein Preservative Free 100mcg/0.5mL IM Vaccine SARS-CoV-2 mRNA-LNP Juan Luis Protein Preservative Free 100mcg/0.5mL IM 43136 LINCOLN SEGURA COVID-19 Moderna; Series #: 1; 0.5 mL; IM; Left Arm; Mfg: Moderna [employer] Lot: [id number]; VIS given (Rekha: 07/06/2020). DoD Immunization Administration By Injection, One Vaccine Immunization Administration By Injection, One Vaccine 57182 LINCOLN SEGURA [facility] Vaccine SARS-CoV-2 mRNA-LNP Juan Luis Protein Preservative Free 100mcg/0.5mL IM First Dose Vaccine SARS-CoV-2 mRNA-LNP Juan Luis Protein Preservative Free 100mcg/0.5mL IM First Dose [id number] LINCOLN SEGURA [facility] Psychiatric Diagnostic Evaluation Psychiatric Diagnostic Evaluation [id number] ERICK ARREDONDO Paring / Curettage Of Benign Hyperkeratotic Lesion, Single Paring / Curettage Of Benign Hyperkeratotic Lesion, Single [id number] UMER UPTON Paring / Curettage Of Benign Hyperkeratotic Lesions, 2-4 Paring / Curettage Of Benign Hyperkeratotic Lesions, 2-4 73850 UMER UPTON Destruction Of Benign Lesion By Any Method Destruction Of Benign Lesion By Any Method [id number] UMER UPTON Non-Physician Phone Call To Patient/Provider Brief (5-10min) Non-Physician Phone Call To Patient/Provider Brief (5-10min) [id number] JELENA YOUNG Social History Combined list of [...] visit for administrative purposes. ? Clinical History: -[id number] Left Achilles rupture while running on treadmill and felt a pop. -[id number] Left Achilles repair -Engaged with [facility] and physical therapy twice weekly?post-operatively and progressing as expected. Pt. currently out of walking boot and back in regular uniform with working boots. ? ? -LIMDU initiated today [id number] -Monthly LIMDU f/u virtually due to distance. -Pt. v/u and concurs. ? 20-29 (41058)?minutes total time spent on evaluation and management.Standby was offered to the patient and documented in note if accepted.??Medications reconciled.??Care plan developed with the?patientand agreed upon.??Pt?verbalizes understanding of plan.???There were no obvious barriers to learning.? ? Luis Sky, KEHINDE, HEAD LOFT WORKER, TILE AND MARBLE SETTER-C [place], [place], [facility] ? Extracted from:Title: LIMDU: S/P LEFT ACHILLES RUPTURE REPAIR Author: LUIS SKY NP Date: 05/16/23 1.?Rupture of left Achilles tendon 27 y/o ADM to clinic for LIMDU f/u. Pt. is engaged in care with a civilian PCM but requires this visit for administrative purposes. ? Clinical History: -[id number] Left Achilles rupture while running on treadmill and felt a pop. -[id number] Left Achilles repair -Engaged with [facility] and physical therapy post-operatively and progressing as expected. Pt. currently out of walking boot. ? ? -LIMDU initiated today -Monthly LIMDU f/u virtually due to distance. -Pt. v/u and concurs. ? 20-29 (18935)?minutes total time spent on evaluation and management.Standby was offered to the patient and documented in note if accepted.??Medications reconciled.??Care plan developed with the?patientand agreed upon.??Pt?verbalizes understanding of plan.???There were no obvious barriers to learning.? ? Luis Sky, DNP, HEAD LOFT WORKER, TILE AND MARBLE SETTER-C , [place], [facility] ? Extracted from:Title: LIMDU: L ACHILLES RUPTURE Author: LUIS SKY NP Date: 04/25/23 1.?Rupture of left Achilles tendon 27 y/o ADM to clinic for placement on LIMDU. Pt. is engaged in care with a civilian PCM but requires this visit for administrative purposes. ? Clinical History: -[id number] Left Achilles rupture while running on treadmill and felt a pop. -[id number] Left Achilles repair -Engaged with [facility] and physical therapy post-operatively and progressing as expected. ? ? -LIMDU initiated today ; directed to Medical Boards -Monthly LIMDU f/u virtually due to distance. -Pt. v/u and concurs. ? 30-39 (39775)?minutes total time spent on evaluation and management.Standby was offered to the patient and documented in note if accepted.??Medications reconciled.??Care plan developed with the?patientand agreed upon.??Pt?verbalizes understanding of plan.???There were no obvious barriers to learning.? ? Luis Sky, DNP, HEAD LOFT WORKER, TILE AND MARBLE SETTER-C , [place], [facility] ? 08/05/2024 Ambulatory Pharmacy Functional Status Combined list of recent functional and cognitive assessments recorded at [facility] [employer] (VA).VA Functional [place] Measurement (FIM) Scale: 1 = Total Assistance (Subject = 0% +), 2 = Maximal Assistance (Subject = 25% +), 3 = Moderate Assistance (Subject = 50% +), 4 = Minimal Assistance (Subject = 75% +), 5 = Supervision, 6 = Modified [place] (Device), 7 = Complete [place] (Timely, Safely). Assessment Date/Time Source Assessment Type Assessment Skill Assessment Score Assessment Details No data available for this section
== END 2024-08-05 08:26 | disposition home or self-care (01) ==
LOC: HO.US 08:25
PROVIDERS: PCP Family Medicine; Visit Provider Physician Assistant
DX: R10.9 Unspecified abdominal pain (principal); G56.00 Carpal tunnel syndrome, unspecified upper limb; M25.531 Pain in right wrist; M25.532 Pain in left wrist; M79.644 Pain in right finger(s)
CPT/HCPCS: 73110; 73140; 76700

== ENCOUNTER → 2024-08-05 08:31 | Outpatient (BNV) | payer OTHER, SELFPAY | PROVIDERS: PCP Family Medicine; Visit Provider Radiology Diagnostic Radiology | DX: R10.9 Unspecified abdominal pain (principal) | CPT/HCPCS: 76700 ==

== ENCOUNTER 2024-08-19 06:18 | Outpatient (REF) | payer OTHER, SELFPAY ==
--- NOTE | 2024-08-19 05:56 | EMG_ITS ---
Bilateral median and ulnar motor and sensory studies were performed. Bilateral radial sensory and bilateral median and lateral antecubital brachial sensory studies were performed and paraspinal muscles were tested with a needle. IMPRESSION: Mild bilateral ulnar neuropathy across cubital tunnel. Otherwise, no significant abnormality noted. MD ROYER Sauer/KOREY / [phone]
== END 2024-08-19 06:19 | disposition home or self-care (01) ==
LOC: HO.NEURO 06:18
PROVIDERS: PCP Family Medicine; Visit Provider Physician Assistant
DX: M25.531 Pain in right wrist (principal); M25.532 Pain in left wrist; G56.03 Carpal tunnel syndrome, bilateral upper limbs
CPT/HCPCS: 95886; 95913

== ENCOUNTER 2024-08-25 13:25 | Outpatient (AMB) | payer OTHER, SELFPAY ==
--- NOTE | 2024-08-25 13:41 | MHC.OFFVIS ---
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 His pain has been present for 4-5 years that has been getting worse. Educated in the ulnar aspect of the bilateral wrists, and radiates up into the hand and into forearm. He has a tingling sensation in his wrist and at times tingling will travel up to his SF. He mentions a slip and fall on a patch of ice while at work in 2022, x-rays came back normal. He uses wrist braces prn. His job requires a lot of repetitive motion that he believes may be contributing to his pain. EMG was done on 08/19/2024 IMPRESSION: Mild bilateral ulnar neuropathy across cubital tunnel. Otherwise, no significant abnormality noted. 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 His pain has been present for 4-5 years that has been getting worse. He has a tingling sensation in his wrist and at times tingling will travel up to his SF. The patient states that does not have any persistent numbness or tingling that bothers him enough that he feels warrants any intervention. He mentions a slip and fall on a patch of ice while at work in 2022, x-rays came back normal. He uses wrist braces prn. His job requires a lot of repetitive motion that he believes may be contributing to his pain. 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 Neuro: Normal sensation of the tips of all digits of the bilateral hand at this time Vascular: Cap refill brisk Pain: Tenderness palpation about the ulnar aspect of bilateral wrists, right worse than left Pain with resisted flexion of bilateral wrists, worst on the right, primarily and ulnar aspect of the wrist ROM: Patient is able to flex and extend all digits of bilateral hands fully and without difficulty Wrist range of motion full and intact Skin: No lacerations or abrasions. General: No ecchymosis, erythema, or evidence of infection. Psych: Appears grossly normal Affect normal Attitude cooperative Results Reviewed Results Reviewed: X-rays obtained in the office today and independently reviewed by me, Lui Dorsey PA-C, demonstrate no fracture or acute bony abnormality of bilateral wrists. Assessment & Plan Assessment & Plan (1) FCU (flexor carpi ulnaris) tenosynovitis: Code(s): M65.939 - Unspecified synovitis and tenosynovitis, unspecified forearm Category: Medical Plan 1. FCU tendinitis of bilateral wrists Right worse than left Ongoing for several years Patient is educated about this condition Patient is educated about the treatment options available This time, patient will be referred to occupational therapy for range motion and strengthening of the bilateral wrists in the setting of FCU tendinitis Patient was amenable to this plan Patient is also provided with bilateral Velcro wrist splints to be worn when his wrists are in significant discomfort Patient will follow-up as needed with any acute concerns Orders: Orders XR wrist LT min 3V Today M25.532 - Pain in left wrist XR wrist RT min 3V Today M25.531 - Pain in right wrist Coding Level of Care Code New Pt Level 3 (20000) Diagnoses FCU (flexor carpi ulnaris) tenosynovitis M65.939
[2024-08-25 13:47] VITALS: BMI 35.7
== END 2024-08-25 14:01 | disposition home or self-care (01) ==
PROVIDERS: PCP Family Medicine
DX: M65.939 Unspecified synovitis and tenosynovitis, unspecified forearm (principal)
CPT/HCPCS: 99203

== ENCOUNTER 2024-12-18 12:44 | Outpatient (REF) | payer OTHER, SELFPAY ==
--- OUTSIDE RECORDS SUMMARY | 2024-12-18 13:23 | XMS_ITS | Encounter Summary ---
Author Organization [facility] Address [address] [place] [address] Care Team Providers Care Spar Finisher Name Role Phone Tess Campoverde APRN Primary Care Provider Un available Encounter Details Date Type Department Care Team (Late st Contact Info) Description 10/13/2022 Scanned Document [facility] Department of Internal Medicine [place] [address] [place] [phone] Tess Campoverde APRN *need valid address Social History Tobacco Use Types Packs/Day Years Used Date Smoking Tobacco: Never Assessed Sex and Gender Information Value Date Recorded Sex Assigned at Male 10/09/2022 3:35 PM EST Legal Sex Male 4:39 PM EDT Gender Identity Male 10/09/2022 3:35 PM EST Sexual Orientation Choose not to disclose 2022 3:40 PM EST COVID-19 Exposure Response Date Recorded In the last 10 days, have yo u been in contact with someone who was confirmed or suspected to have Coronavirus/COVID-19? No / Unsure 10/09/2022 3:32 PM EST documented as of this encounter Plan of Treatment Not on file documented as of this encounter Visit Diagnoses Not on filedocumented in this encounter Care Teams Spar Finisher Relationship Specialty Start Date End Date Tess Campoverde APRN PCP - General documented as of this encounter
--- OUTSIDE RECORDS SUMMARY | 2024-12-18 13:23 | XMS_ITS | Encounter Summary ---
Author Organization [facility] Address [address] [place] [address] Care Team Providers Care Complex Care Nurse Practitioner Name Role Phone Tess Campoverde APRN Primary Care Provider Un available Reason for Visit * Reason Comments Medication Refill Encounter Details Date Type Department Care Team (Late st Contact Info) Description 11/13/2022 Refill [facility] Department of Internal Medicine [place] [address] [place] [address] Tess Campoverde APRN *need valid address Irritable; Depression, uncontrolled Social History Tobacco Use Types Packs/Day Years Used Date Smoking Tobacco: Never Assessed Sex and Gender Information Value Date Recorded Sex Assigned at Male 10/09/2022 3:35 PM EST Legal Sex Male 4:39 PM EDT Gender Identity Male 10/09/2022 3:35 PM EST Sexual Orientation Choose not to disclose 2022 3:40 PM EST documented as of this encounter Plan of Treatment Not on file documented as of this encounter Visit Diagnoses Diagnosis Irritable Irritability Depression, uncontrolled documented in this encounter Care Teams Complex Care Nurse Practitioner Relationship Specialty Start Date End Date Tess Campoverde APRN PCP - General documented as of this encounter
--- OUTSIDE RECORDS SUMMARY | 2024-12-18 13:23 | XMS_ITS | Encounter Summary ---
Author Organization [facility] Address [address] [place] [address] Care Team Providers Care Wheel Tuner Name Role Phone Tess Campoverde APRN Primary Care Provider Un available Reason for Visit * Reason Comments Medication Refill Encounter Details Date Type Department Care Team (Late st Contact Info) Description 01/29/2023 Refill [facility] Department of Internal Medicine [place] [address] [place] [address] Tess Campoverde APRN *need valid address Depression, uncontrolled Social History Tobacco Use Types [...] as of this encounter Visit Diagnoses Diagnosis Depression, uncontrolled documented in this encounter Care Teams Wheel Tuner Relationship Specialty Start Date End Date Tess Campoverde APRN PCP - General documented as of this encounter
--- OUTSIDE RECORDS SUMMARY | 2024-12-18 13:23 | XMS_ITS | Encounter Summary ---
Author Organization [facility] Address [address] [place] [address] Care Team Providers Care Butter Wrapper Name Role Phone Tess Campoverde APRN Primary Care Provider Un available Encounter Details Date Type Department Care Team (Late st Contact Info) Description 11/23/2022 Scanned Document [facility] Department of Internal Medicine [place] [address] [place] [phone] Tess Campoverde APRN *need valid address Social [...] on filedocumented in this encounter Care Teams Butter Wrapper Relationship Specialty Start Date End Date Tess Campoverde APRN PCP - General documented as of this encounter
--- OUTSIDE RECORDS SUMMARY | 2024-12-18 13:23 | XMS_ITS | Encounter Summary ---
Author Organization [facility] Address [address] [place] [address] Care Team Providers Care Stud Driver Name Role Phone Tess Campoverde APRN Primary Care Provider Un available Encounter Details Date Type Department Care Team (Late st Contact Info) Description 01/19/2023 Scanned Document [facility] Department of Internal Medicine [place] [address] [place] [phone] Tess Campoverde APRN *need valid address Social [...] on filedocumented in this encounter Care Teams Stud Driver Relationship Specialty Start Date End Date Tess Campoverde APRN PCP - General documented as of this encounter
--- OUTSIDE RECORDS SUMMARY | 2024-12-18 13:23 | XMS_ITS | Clinical Summary ---
Author Organization [facility] Address [address] [place] [address] Care Team Providers Care Cartridge Assembling Machine Adjuster Name Role Phone Tess Campoverde APRN Primary Care Provider Un available Allergies No known active allergies Medications ergocalciferol (VITAMIN D2,DRISDOL) 02093 units Cap Take by mouth. 2 Active methocarbamol (ROBAXIN) 750 MG tablet Take 1 tablet by mouth 3 (three) times a day as needed. 2 Active valACYclovir (VALTREX) 1000 MG tablet Take by mouth. 2 Active vilazodone (VIIBRYD) 20 MG tabletIndication s:Depression, uncontrolled Take 1 tablet (20 mg total) by mouth daily. Please make appointment for follow up of new medicaiton 30 tablet 1 3 Active Active Problems Problem Noted Date Diagnosed Date Irritable 10/09/2022 Assessment & Plan (10/09/2022 10:20 PM EST): 10/09/2022 poorly controlled, medication changes as documented, will continue to follow Wrist pain, right 10/09/2022 Assessment & Plan (10/09/2022 10:26 PM EST): 10/09/2022 Continued pain with conservative treatment, xrays negative 08/28/22, referral to ortho, continue to follow Hand pain, right 10/09/2022 Assessment & Plan (10/09/2022 10:26 PM EST): 10/09/2022 Continued pain with conservative treatment, xrays negative 08/28/22, referral to ortho, continue to follow Chronic lower back pain 10/06/2022 Depression, uncontrolled 10/06/2022 Assessment & Plan (10/09/2022 10:21 PM EST): 10/09/2022 poorly controlled, medication changes as documented, will continue to follow Headache 10/06/2022 Insomnia 10/06/2022 Recurrent cold sores 10/06/2022 Vitamin D deficiency 10/06/2022 Immunizations Immunization Administration Dates Next Due Influenza, Quadrivalent 05/08/2023 Influenza, Quadrivalent (FLU ARIX, AFLURIA, FLULAVAL, FLUZONE) Preservative Free IM 05/04/2022 Social History Tobacco Use Types Packs/Day Years Used Date Smoking Tobacco: Never Assessed Sex and Gender Information Value Date Recorded Sex Assigned at Male 10/09/2022 3:35 PM EST Legal Sex Male 4:39 PM EDT Gender Identity Male 10/09/2022 3:35 PM EST Sexual Orientation Choose not to disclose 2022 3:40 PM EST Last Filed Vital Signs Vital Sign Reading Time Taken Comments Blood Pressure 110/68 10/09/2022 4:02 PM EST Pulse 68 10/09/2022 4:02 PM EST Temperature - - Respiratory Rate - - Oxygen Saturation 98% 10/09/2022 4:02 PM EST Inhaled Oxygen Concentration - - Weight 101 kg (221 lb 9.6 oz) 10/09/2022 4:02 PM EST Height 172.7 cm (5' 8 ) 10/09/2022 4:02 PM EST Body Mass Index 33.69 10/09/2022 4:02 PM EST Plan of Treatment Health Maintenance Due Date Last Done Comments Hepatitis C Virus Screening 1997 HIV Screening 2010 DTaP/Tdap/Td Vaccines (1 - Tdap) 2016 Hepatitis B Vaccines (1 of 3 - 19+ 3-dose series) 2016 COVID-19 Vaccine (2023-2 5 season) 2024 Influenza Vaccine 03/06/2025 05/08/2023, 05/04/2022 HPV Vaccines Aged Out No longer eligi ble based on patient's age to complete this topic Pneumococcal Vaccine: Pediatric (0-5 Years) and At-Risk Patients (6 to 49 Years) Aged Out No longer eligible b ased on patient's age to complete this topic Insurance [facility] Care Teams Cartridge Assembling Machine Adjuster Relationship Specialty Start Date End Date Tess Campoverde APRN PCP - General
--- OUTSIDE RECORDS SUMMARY | 2024-12-18 13:23 | XMS_ITS | Encounter Summary ---
Author Organization [facility] Address [address] [place] [address] Care Team Providers Care Vp Publisher Development Name Role Phone Tess Campoverde APRN Primary Care Provider Un available Encounter Details Date Type Department Care Team (Late st Contact Info) Description 05/08/2023 Scanned Document [facility] Department of Internal Medicine [place] [address] [place] [phone] Tess Campoverde APRN *need valid address Social [...] on filedocumented in this encounter Care Teams Vp Publisher Development Relationship Specialty Start Date End Date Tess Campoverde APRN PCP - General documented as of this encounter
--- OUTSIDE RECORDS SUMMARY | 2024-12-18 13:23 | XMS_ITS | Encounter Summary ---
Author Organization [facility] Address [address] [place] [address] Care Team Providers Care Civil Engineering Assistant Name Role Phone Tess Campoverde APRN Primary Care Provider Un available Reason for Visit * Reason Comments Medication Refill Encounter Details Date Type Department Care Team (Late st Contact Info) Description 02/28/2023 Refill [facility] Department of Internal Medicine [place] [address] [place] [address] Tess Campoverde APRN *need valid address Anxiety disorder, unspecified; Depression, unspecified Social History Tobacco Use Types Packs/Day Years [...] as of this encounter Visit Diagnoses Diagnosis Anxiety disorder, unspecified Depression, unspecified documented in this encounter Care Teams Civil Engineering Assistant Relationship Specialty Start Date End Date Tess Campoverde APRN PCP - General documented as of this encounter
--- OUTSIDE RECORDS SUMMARY | 2024-12-18 13:23 | XMS_ITS | Encounter Summary ---
Author Organization [facility] Address [address] [place] [address] Care Team Providers Care Collect On Delivery Clerk Name Role Phone Tess Campoverde APRN Primary Care Provider Un available Encounter Details Date Type Department Care Team (Late st Contact Info) Description 04/19/2023 Scanned Document [facility] Department of Internal Medicine [place] [address] [place] [phone] Tess Campoverde APRN *need valid address Social [...] on filedocumented in this encounter Care Teams Collect On Delivery Clerk Relationship Specialty Start Date End Date Tess Campoverde APRN PCP - General documented as of this encounter
--- OUTSIDE RECORDS SUMMARY | 2024-12-18 13:23 | XMS_ITS | Continuity of Care Document ---
Author Name [facility] Organization [facility] Care Team Providers Care Automatic Equipment Technician Name Role Phone [facility] Unavailable Unavailable Problems Combined list of problems from Department of Defense and Veterans Affairs facilities. It does not include entries that were removed or entered in error. Problem Status Onset Date Problem Type Date of Resolution Comments Source Encounter for examination and observation for other specified reasons Active 5 Diagnosis [facility] [place] Other specified counseling Active 5 Diagnosis [facility] [place] Encounter for other specified special examinations Active 5 Diagnosis [facility] [place] Pseudofolliculitis barbae Inactive 2 Condition [facility] Pain in left finger(s) Inactive 0 Condition [facility] Nondisplaced fracture of proximal phalanx of right little finger Active 9 Condition [facility] Anthrax Vaccine, For Subcutaneous Use Inactive 8 Condition [facility] visit for: services physical Inactive 7 Condition [facility] Rupture of left Achilles tendon Active Condition [facility] [place] Medications Combined list of outpatient medications from [...] ORAL, ZYDUS PHARMACEU, 100 ea. BOTTLE Active [id number] 2023 90 Pharmac y Data Transac tion Service Facilit y AMITRIPTYLI NE HCL (amitriptyl ine HCl), 25 MG, TABLET, ORAL, ZYDUS PHARMACEU, 1000 ea. BOTTLE Active [id number] 4 2023 90 Pharmac y Data Transac tion Service Facilit y escitalopra m 20 mg oral tablet 90 EA, 0 Refill(s ), TAKE 1/2 TABLET BY MOUTH EVERY DAY FOR 2 WEEKS THEN INCREASE TO TABLET DAILY, 0 total refill(s ), Soft Stop Ordered 2022 [facility]C-[facility] [place] KETOCONAZOL E (ketoconazo le), 2 %, CREAM (G), TOPICAL, TEVA [place], 60 g TUBE Active [id number] 2023 60 Pharmac y Data Transac tion Service Facilit y meloxicam 15 mg oral tablet 1 tab(s), Oral, Daily, # 30 tab(s), 0 total refill(s ), Maintena nce Oral (given by mouth) Ordered 2022 30.0 [facility] [place] ondansetron 4 mg oral tablet 21 EA, 0 Refill(s ), TAKE 1 TABLET BY MOUTH EVERY 8 HOURS NEEDED FOR NAUSEA, 0 total refill(s ), Soft Stop Discont inued 05/16/20232022 0035C-N [facility] ONDANSETRON ODT (ONDANSETRO N), 4 MG, TAB RAPDIS, ORAL, AUROBINDO PHARM, 30 ea. BLIST PACK Cancele d [id number] : 2023 0 Pharmac y Data Transac tion Service Facilit y oxyCODONE 5 mg oral tablet 30 EA, 0 Refill(s ), TAKE 1 TABLET BY MOUTH EVERY 4 TO 6 HOURS NEEDED FOR PAIN SEVERE. DO NOT DRIVE, 0 total refill(s ), Soft Stop Discont inued 05/16/20232022 [facility] [place] SUMATRIPTAN SUCCINATE (sumatripta n succinate), 25 MG, TABLET, ORAL, [employer] 9 ea. BLIST PACK Active [id number] 2023 10 Pharmac y Data Transac tion Service Facilit y Allergies, Adverse Reactions, Alerts Combined list of allergies from Department of Defense and Veterans Affairs facilities. It does not include entries that were removed or entered in error. Substance Category Reaction Severity Reaction type Status Date Reported Comments Source No Known Allergies Drug allergy (disorder) active 9 [facility] Immunizations Combined list of available immunizations from the Department of Defense and Veterans Affairs facilities. Immunization Series Date Given Administered By Site Reaction Lot Number CVX Code Drug Barrel Roller Operator Status Comments Source COVID Vaccine Moderna 2021 TRS 207 complet ed COVID Vaccine Moderna 01/20/22 Given Ambulat ory Pharmac y COVID-19, mRNA, LNP-S, PF, 100 mcg or 50 mcg dose 2021 DUNG, () Not Given COVID-19, mRNA, LNP-S, PF, 100 mcg or 50 mcg dose DoD influenza, injectable, quadrivalent- pf 2020 [id number] 150 Seqirus complet ed influenza , injectabl e, quadrival ent-pf 05/27/21 Given Ambulat ory Pharmac y influenza, injectable, quadrivalent- pf 2020 [id number] 463 150 Seqirus complet ed influenza , injectabl e, quadrival ent-pf 05/27/21 Given Ambulat ory Pharmac y Influenza, injectable, quadrivalent, preservative free 0 2020 [id number] 463 150 Seqirus (SEQ) complet ed Influenza , injectabl e, quadrival ent, preservat enma free DoD typhoid Vi capsular polysaccharid e vac 2020 [id number] 101 sanofi pasteur complet ed typhoid Vi capsular polysacch aride vac 12/11/20 Given Ambulat ory Pharmac y yellow fever vaccine 2020 [id number] 37 sanofi pasteur complet ed yellow fever vaccine 12/11/20 Given Ambulat ory Pharmac y meningococcal A,C,Y,W-135 (MCV4P) 2020 [id number] 114 sanofi pasteur complet ed meningoco ccal A,C,Y,W-1 35 (MCV4P) 12/11/20 Given Ambulat ory Pharmac y yellow fever vaccine 2020 [id number] 37 sanofi pasteur complet ed yellow fever vaccine 12/11/20 Given Ambulat ory Pharmac y typhoid Vi capsular polysaccharid e vac 2020 [id number] 101 sanofi pasteur complet ed typhoid Vi capsular polysacch aride vac 12/11/20 Given Ambulat ory Pharmac y meningococcal A,C,Y,W-135 (MCV4P) 2020 [id number] 114 sanofi pasteur complet ed meningoco ccal A,C,Y,W-1 35 (MCV4P) 12/11/20 Given Ambulat ory Pharmac y yellow fever vaccine 0 2020 [id number] 37 Sanofi Pasteur (PMC) complet ed yellow fever vaccine DoD typhoid Vi capsular polysaccharid e vaccine 2 2020 [id number] 101 Sanofi Pasteur (PMC) complet ed typhoid Vi capsular polysacch aride vaccine DoD meningococcal polysaccharid e (groups A, C, Y and W-135) diphtheria toxoid conjugate vaccine (MCV4P) 0 2020 [id number] 114 Sanofi Pasteur (PMC) complet ed meningoco ccal polysacch aride (groups A, C, Y and W-135) diphtheri a toxoid conjugate vaccine (MCV4P) DoD COVID Vaccine Moderna 2020 [id number] 207 complet ed COVID Vaccine Moderna 10/24/20 Given Ambulat ory Pharmac y SARS-COV-2 (COVID-19) vaccine, mRNA, spike protein, LNP, preservative free, 100 mcg or 50 mcg dose 2 2020 [id number] 207 Moderna US, Inc. (MOD) complet ed SARS-COV- 2 (COVID-19 ) vaccine, mRNA, spike protein, LNP, preservat enma free, 100 mcg or 50 mcg dose DoD COVID Vaccine Moderna 2020 [id number] 207 complet ed COVID Vaccine Moderna 09/24/20 Given Ambulat ory Pharmac y COVID Vaccine Moderna 2020 zzLef t Arm [id number] 207 complet ed COVID Vaccine Moderna 09/24/20 Given Ambulat ory Pharmac y SARS-COV-2 (COVID-19) vaccine, mRNA, spike protein, LNP, preservative free, 100 mcg or 50 mcg dose 1 2020 LINCOLN SEGURA [id number] 207 Moderna US, Inc. (MOD) complet ed SARS-COV- 2 (COVID-19 ) vaccine, mRNA, spike protein, LNP, preservat enma free, 100 mcg or 50 mcg dose DoD influenza, injectable, quadrivalent 2019 [id number] 167 158 Seqirus complet ed influenza , injectabl e, quadrival ent 05/25/20 Given Ambulat ory Pharmac y influenza, injectable, quadrivalent 2019 [id number] 167 158 Seqirus complet ed influenza , injectabl e, quadrival ent 05/25/20 Given Ambulat ory Pharmac y influenza, injectable, quadrivalent, contains preservative 0 2019 [id number] 167 158 Seqirus (SEQ) complet ed influenza , injectabl e, quadrival ent, contains preservat enma DoD typhoid Vi capsular polysaccharid e vac 2018 (C) [id number] 101 sanofi pasteur complet ed typhoid Vi capsular polysacch aride vac 03/24/19 Given Ambulat ory Pharmac y typhoid Vi capsular polysaccharid e vac 2018 C [id number] 101 sanofi pasteur complet ed typhoid Vi capsular polysacch aride vac 03/24/19 Given Ambulat ory Pharmac y typhoid Vi capsular polysaccharid e vaccine 1 2018 C [id number] 101 Sanofi Pasteur (PMC) complet ed typhoid Vi capsular polysacch aride vaccine DoD influenza, injectable, quadrivalent 2017 [id number] 158 GlaxoSmithK[employer] ne complet ed influenza , injectabl e, quadrival ent 07/24/18 Given Ambulat ory Pharmac y influenza, injectable, quadrivalent, contains preservative 0 2017 [id number] 158 SmithKline (SKB) complet ed influenza , injectabl e, quadrival ent, contains preservat enma DoD anthrax vaccine 2017 [id number] 24 Emergent [employer] complet ed anthrax vaccine 12/05/17 Given Ambulat ory Pharmac y anthrax vaccine 2017 [id number] 24 [employer] complet ed anthrax vaccine 12/05/17 Given Ambulat ory Pharmac y anthrax vaccine 2 2017 [id number] 24 [employer]gent [employer] Edith (MIP) complet ed anthrax vaccine DoD anthrax vaccine 2017 [id number] 24 [employer] complet ed anthrax vaccine 11/07/17 Given Ambulat ory Pharmac y anthrax vaccine 1 2017 [id number] 24 [employer] Edith (MIP) complet [...] vaccine, adult dosage DoD influenza, injectable, quadrivalent 2016 [id number] 158 Seqirus complet ed influenza , injectabl e, quadrival ent 06/01/17 Given Ambulat ory Pharmac y influenza, injectable, quadrivalent 2016 [id number] 158 Seqirus complet ed influenza , injectabl e, quadrival ent 06/01/17 Given Ambulat ory Pharmac y influenza, injectable, quadrivalent, contains preservative 0 2016 [id number] 158 Seqirus (SEQ) comple t ed influenza , injectabl e, quadrival ent, contains preservat enma DoD poliovirus vaccine, inactivated 2016 [id number] 10 sanofi pasteur complet ed polioviru s vaccine, inactivat ed 09/26/16 Given Ambulat ory Pharmac y poliovirus vaccine, inactivated 2016 zzLef t Arm [id number] 10 sanofi pasteur complet ed polioviru s vaccine, inactivat ed 09/26/16 Given Ambulat ory Pharmac y poliovirus vaccine, inactivated 1 2016 NABEEL GOMEZ [id number] 10 Sanofi Pasteur (PMC) complet ed polioviru s vaccine, inactivat ed [...] purified protein derivative 2016 zzLef t Arm [id number] 96 sanofi pasteur complet ed Patient Tolerance : Negative Ambulat ory Pharmac y tuberculin skin test; purified protein derivative solution, intradermal 0 2016 ZACHARIAH SALTER [id number] 96 Sanofi Pasteur (PMC) complet ed tuberculi n skin test; purified protein derivativ e solution, intraderm al DoD influenza, seasonal, injectable-pf 2016 [id number] 140 Seqirus complet ed influenza , seasonal, injectabl e-pf 08/23/16 Given Ambulat ory Pharmac y tetanus, diphtheria, acellular pertu is 2016 [id number] 115 Unknown complet ed tetanus, diphtheri a, acellular pertussis 08/23/16 Given Ambulat ory Pharmac y adenovirus vaccine, live 2016 [id number] 6 143 Unknown complet ed adenoviru s vaccine, live 08/23/16 Given Ambulat ory Pharmac y influenza, seasonal, injectable-pf 2016 zzL t Arm [id number] 140 Seqirus complet ed influenza , seasonal, injectabl e-pf 08/23/16 Given Ambulat ory Pharmac y meningococcal A,C,Y,W-135 (MCV4P) 2016 zSaurav cueva Arm [id number] 114 sanofi pasteur complet ed meningoco ccal A,C,Y,W-1 35 (MCV4P) 08/23/16 Given Ambulat ory Pharmac y tetanus, diphtheria, acellular pertu is 2016 Susanne Arm [id number] 115 Unknown complet ed tetanus, diphtheri a, acellular pertussis 08/23/16 Given Ambulat ory Pharmac y adenovirus vaccine, live 2016 [id number] 6 143 Unknown complet ed adenoviru s vaccine, live 08/23/16 Given Ambulat ory Pharmac y meningococcal polysaccharid e (groups A, C, Y and W-135) diphtheria toxoid conjugate vaccine (MCV4P) 1 2016 WILL INGRAM [id number] 114 Sanofi Pasteur (PMC) complet ed meningoco ccal polysacch aride (groups A, C, Y and W-135) diphtheri a toxoid conjugate vaccine (MCV4P) DoD tetanus toxoid, reduced diphtheria toxoid, and acellular pertu is vaccine, adsorbed 2016 WILL INGRAM [id number] 115 Other (OTH) complet ed tetanus toxoid, reduced diphtheri a toxoid, and acellular pertussis vaccine, adsorbed DoD Influenza, seasonal, injectable, preservative free 1 2016 WILL INGRAM Angel [id number] 140 Seqirus (SEQ) complet ed Influenza , seasonal, injectabl e, preservat enma free [facility] Adenovirus, type 4 and type 7, live, oral 1 2016 WILL INGRAM Angel [id number] 143 Other (OTH) complet ed Adenoviru s, type 4 and type 7, live, oral DoD Vital Signs Combined list of inpatient and outpatient Vital Signs from Department of Defense and Veterans Affairs, ranging from 12 months to all on record, depending upon the facility. Vital Sign Value Date Comments Source Mean Arterial Pressure, Calc 100 mm[Hg] 04/25/2023 16:41:00 [facility] [place] Blood Pressure Manual Automatic 04/25/2023 16:41:00 [facility] [place] Systolic Blood Pressure 131 mm[Hg] 04/25/2023 16:41:00 [facility] [place] Diastolic Blood Pressure 85 mm[Hg] 04/25/2023 16:41:00 [facility] [place] BP Site Right arm 04/25/2023 16:41:00 [facility] [place] Peripheral Pulse Rate 90 bpm 04/25/2023 16:41:00 [facility] [place] Respiratory Rate 16 br/min 04/25/2023 16:41:00 [facility] [place] Encounters Combined list of: 1) Encounters from Department of Veterans Affairs facilities going backup to the last 18 months, not all VA inpatient encounters are included; 2) Encounters from the Department of Defense facilities going backup to 280 months. Location Location Details Encounter Type Encounter Number Reason For Visit Attending Provider ADM Date DC Date Status Disposition Source [facility](Au diology [facility] 1523) OUTPATIENT [id number] SOL BAHENA 08/22 Released w/o Limitations [facility]( Audiolo gy [facility] 1523) [facility](Op tometry [facility] 1523) OUTPATIENT [id number] NEDRA BELTRAN 08/22 Released w/o Limitations [facility]( Optomet ry [facility] 1523) [facility] Male) OUTPATIENT [id number] Notes Entered by: RUDDY ALMARAZ 23 Aug 2016 1305 ------- ------- ------- ------- -- P-4 Male HUMBERTO Sanchez 08/23 Released w/o Limitations [facility]( [facility] Male) [facility](Im munizatio n 1523) OUTPATIENT [id number] Notes Entered by: WILL INGRAM 23 Aug 2016 1653 ------- ------- ------- ------- -- P4 Immuniz ations ELLIE MISHRA 08/23 Released w/o Limitations [facility]( Immuniz ation 1523) [facility](Pr ev Med Immunizat ions/237) OUTPATIENT [id number] Notes Entered by: ZACHARIAH SALTER 29 Aug 2016 1406 ------- ------- ------- ------- -- TST PPD TB Testing JENNIFER ARDON 08/29 Released w/o Limitations [facility]( Prev Med Immuniz ations/ 237) [facility](Ho nor (Red) 1007) OUTPATIENT [id number] Notes Entered by: СЕРГЕЙ ROBERTS 26 Sep 2016 1102 ------- ------- ------- ------- -- celsoati VERNON Lund 09/26 Released w/o Limitations [facility]( Lerna (Red) 1007) [facility](Emergen Medicine [facility]) OUTPATIENT [id number] EDEN ASHFORD 01/18 Released w/o Limitations [facility](Mercedes rgency Medicin e [facility]) Theater Facility OUTPATIENT [id number] Theater Provider 05/10 Released w/o Limitations Theater Facilit y [facility](Hearing Cons [place]) OUTPATIENT [id number] Notes Entered by: JANNETH EVANS 09 Oct 2017 1451 ------- ------- ------- ------- -- Annual JAC EVANS 10/09 Released w/o Limitations [facility](Hea ring Cons [place]) Theater Facility OUTPATIENT [id number] Theater Provider 11/07 Released w/o Limitations Theater Facilit y [facility] h(Emergen cy Medicine [facility]) OUTPATIENT [id number] CANDICE ESCALANTE 11/20 Released w/o Limitations [facility](Mercedes rgency Medicin e [facility]) [facility](Acute Care Ortho [facility]) OUTPATIENT [id number] Notes Entered by: KESHAV WEAVER 20 Nov 2018 0415 ------- ------- ------- ------- -- right small finger fractur e WAQAR ROBLEDO H 11/20 Released with Work/Duty Limitations [facility](Acu te Care Ortho [facility]) [facility](Hand Surg [facility]) OUTPATIENT [id number] tracker right small finger fx MIRIAM KIM 11/28 Released with Work/Duty Limitations [facility](Fung d Surg [facility]) [facility](Hand Surg [facility]) OUTPATIENT [id number] f/u visit on rt.SF MIRIAM KIM 12/19 Released with Work/Duty Limitations [facility](Fung d Surg [facility]) [facility](Occupat ional Therapy Hand Clinic [facility]) OUTPATIENT [id number] MARY Garcia 12/19 Released w/o Limitations [facility](Occ upation al Therapy Hand Clinic [facility]) [facility](Hearing Cons [place] Sta) OUTPATIENT [id number] BRITTNI SALDANA 12/20 Released w/o Limitations [facility](Hea ring Cons [place] Sta) [facility](Optomet ry [place]) OUTPATIENT [id number] EYE EXAM KESHAV CAI 01/09 Released w/o Limitations [facility](Opt ometry [place]) [facility](Hand Surg [facility]) OUTPATIENT [id number] f/u right SF KIM MIRIAM Janny Ortiz 02/27 Released w/o Limitations [facility](Fung d Surg [facility]) [facility](P NavSta T2) OUTPATIENT [id number] LUIS Denise 05/28 Released w/o Limitations [facility](P NavSta T2) [facility](Hearing Cons [place] Sta) OUTPATIENT [id number] BRITTNI SALDANA 01/06 Released w/o Limitations [facility](Hea ring Cons [place] Sta) [facility](Hearing Cons [place] Sta) OUTPATIENT [id number] JESUS SINGH 01/07 Released w/o Limitations [facility](Hea ring Cons [place] Sta) [facility](Emergen cy Medicine [facility]) OUTPATIENT [id number] LEE ANN MALONE 03/31 Released w/o Limitations [facility](Mercedes rgency Medicin e [facility]) Theater Facility OUTPATIENT [id number] Theater Provider 04/14 Released with Work/Duty Limitations Theater Facilit y [place] (Immuniz ations [facility]) OUTPATIENT [id number] Notes Entered by: MADELYN HUYNH 24 Sep 2020 0951 ------- ------- ------- ------- -- LINCOLN ANSARI 09/24 Released w/o Limitations [facility](Imm unizati ons [facility] ) Theater Facility OUTPATIENT [id number] Theater Provider 12/21 Released w/o Limitations Theater Facilit [facility](Derm atology - [facility]) OUTPATIENT [id number] UMER Moralez 01/11 Released w/o Limitations [facility](De rmatolo gy - [facility]) [facility](Fami ly Medicine ([facility])) TELE CONSULT [id number] Notes Entered by: ALONZO CARBONE RMEN 26 Jan 2021 1048 ------- ------- ------- ------- -- PT REQUEST A PRESCRI JELENA MIDDLETON 01/26 Other Not Elsewhere Classified [facility](Fa suad Medicin e ([facility])) [facility](Emergen Medicine [facility]) OUTPATIENT [id number] NEGRO BEDOYA 06/20 Released w/o Limitations [facility](Mercedes rgency Medicin e [facility]) [facility]( Med Readiness Center) OUTPATIENT [id number] PHA-NON STUDENT MIRIAM BECKER 01/19 Released w/o Limitations [facility]( Med Readine ss Center) 003-[facility] Dental [id number] ARMIDA PALOMO 11/27 Discharge Disposition: Home or Self Care 0035C-[facility] 003-[facility] [id number] Encount er for examina tion and observa tion for other specifi ed reasons ,Other specifi ed education counselor rodo MONTEMAYOR 12/02 Discharge Disposition: Home or Self Care 0035C-[facility] [address] [place] [address] [id number] Encount er for other specifi ed special examina tions YUE LOOMIS 12/02 Discharge Disposition: Home or Self Care 00[facility]C-[facility] [address] [place] [address] Between Visit [id number] 12/02 Discharge Disposition: Home or Self Care 0035C-N [facility] Procedures Combined list of: 1) Procedures from Department of Veterans Affairs facilities going back up to thelast 18 months, not all VA non-surgical procedures are included; 2) All procedures from the Department of Defense facilities. Procedure Procedure Type Code Date Perfomer Comments Sour e Determination Of Refractive State Determination Of Refractive State 11121 2018 KESHAV CAI Ophthalmological New Patient Start Comprehensive Care Ophthalmological New Patient Start Comprehensive Care 06339 2018 KESHAV CAI Patient education, not otherwise cla ified, non-physician provider, individual, per se ion 2018 PACO CASTELLANOS Threshold Audiogram (Pure Tone) Automated Threshold Audiogram (Pure Tone) Automated 0208T 2018 PACO CASTELLANOS Finger orthosis, without joints, may include soft interface, custom fabricated, includes fitting and adjustment 2018 MARY LUIS Physical Therapy Education Orthotics Training Physical Therapy Education Orthotics Training 12837 2018 MARY LUIS Fluoroscopy Fluoroscopy 04270 2018 MAHESH KIM Orthopedic Splinting Short Arm Orthopedic Splinting Short Arm 53997 2018 KESHAV WEAVER Fluoroscopy Up To One Hour Physician Time Fluoroscopy Up To One Hour Physician Time [id number] 2018 KESHAV WEAVER Patient education, not otherwise cla ified, non-physician provider, individual, per se ion 2017 JAC EVANS Threshold Audiogram (Pure Tone) Automated Threshold Audiogram (Pure Tone) Automated 0208T 2017 JAC EVANS Skin Test Anergy Tuberculin Intradermal Skin Test Anergy Tuberculin Intradermal 51546 2016 ZACHARIAH SALTER IPPD; Series #: 1; .1 mL; ID; Left Arm; Mfg: Sanofi Pasteur; Lot: [id number]; VIS given. [facility] Injection, penicillin g benzathine, 100,[address] Supervised Injection Intramuscular Antibiotic Supervised Injection Intramuscular Antibiotic 85147 2016 WILL INGRAM Vaccines Adenovirus Type 7 Live, For Oral Use Vaccines Adenovirus Type 7 Live, For Oral Use 62025 2016 WILL NIGRAM Immunization Admin Intranasal / Oral Each Additional Vaccine Immunization Admin Intranasal / Oral Each Additional Vaccine 90494 2016 WILL INGRAM [facility] Vaccines Adenovirus Type 4 Live, For Oral Use Vaccines Adenovirus Type 4 Live, For Oral Use 82324 2016 WILL INGRAM [facility] Influenza Split Virus Vaccine Age 3+ Years Intramuscular 2016 WILL INGRAM [facility] Immunization Administration Each Additional Vaccine Immunization Administration Each Additional Vaccine 03008 2016 WILL INGRAM [facility] Meningococcal Polysacch Diphtheria Toxoid Conjugate Vaccine 2016 WILL INGRAM Meningococcal MCV4P; Series #: 1; .5 mL; IM; Left Arm; Mfg: Sanofi Pasteur; Lot: [id number]; VIS given (Rekha: 11/04/2015). [facility] Tdap Vaccine Tdap Vaccine 29872 2016 WILL INGRAM Tdap; Series #: 1; .5 mL; IM; Right Arm; Mfg: Other; Lot: [id number]; VIS given (Rekha: 09/29/14). [facility] Immunization Administration One Vaccine Immunization Administration One Vaccine 13621 2016 WILL INGRAM [facility] Patient education, not otherwise cla ified, non-physician provider, group, per se ion 2016 RUDDY ALMARAZ Visual Function Screening Visual Function Screening 46854 2016 NEDRA BELTRAN Threshold Audiogram (Pure Tone) Threshold Audiogram (Pure Tone) 75328 2016 SOL BAHENA Audiometry Group Testing Audiometry Group Testing 70464 2016 [facility] [place] Threshold Audiogram (Pure Tone) Automated Threshold Audiogram (Pure Tone) Automated 0208T BRITTNI SALDANA Patient education, not otherwise cla ified, non-physician provider, individual, per se ion BRITTNI SALDANA [facility] Immunization Administration One Vaccine Immunization Administration One Vaccine 31239 LINCOLN SEGURA [facility] Psychiatric Evaluation Psychiatric Evaluation 66365 ERICK ARREDONDO Paring / Curettage Of Benign Hyperkeratotic Lesion, Single Paring / Curettage Of Benign Hyperkeratotic Lesion, Single 95777 UMER UPTON Paring / Curettage Of Benign Hyperkeratotic Lesions, 2-4 Paring / Curettage Of Benign Hyperkeratotic Lesions, 2-4 21539 UMER UPTON [facility] Destruction Of Benign Lesion By Any Method Destruction Of Benign Lesion By Any Method 28085 UMER UPTON [facility] Non-Physician Phone Call To Patient/Provider Brief (5-10min) Non-Physician Phone Call To Patient/Provider Brief (5-10min) [id number] HANNAH JELENA ALCANTARAE [facility] TELE ASSESS & MGT SRV PROV QUAL NONPHYS HLTH CARE PRO TO EST PAT,PARENT,GUARD NOT ORIG REL ASSESS & MGT SRV PROV W/IN PREV 7 DAYS NOR LEAD ASSESS & MGT SRV/PX W/IN NXT 24 HR/SOON APT;5-10 MIN MED DIS 2020 [facility] DESTRUCTION (EG, LASER SURGERY, ELECTROSURGERY, CRYOSURGERY, CHEMOSURGERY, SURGICAL CURETTEMENT), OF BENIGN LESIONS OTHER THAN SKIN TAGS OR CUTANEOUS VASCULAR PROLIFERATIVE LESIONS; UP TO 14 LESIONS 2020 [facility] PSYCHIATRIC DIAGNOSTIC EVALUATION 2020 [facility] POLIOVIRUS VACCINE, INACTIVATED (IPV), FOR SUBCUTANEOUS OR INTRAMUSCULAR USE 2016 [facility] SKIN TEST; TUBERCULOSIS, INTRADERMAL 2016 [facility] IMMUNIZATION ADMINISTRATION (INCLUDES PERCUTANEOUS, INTRADERMAL, SUBCUTANEOUS, OR INTRAMUSCULAR INJECTIONS); EACH ADDITIONAL VACCINE (SINGLE OR COMBINATION VACCINE/TOXOID) 2016 [facility] PATIENT EDUCATION, NOT OTHERWISE CLASSIFIED, NON-PHYSICIAN PROVIDER, GROUP, PER SESSION 2016 [facility] VIS FUNCT SCREEN,AUTOMAT/SEMI -AUTOMAT BILAT QUANT DETERM VISUAL ACUITY,OCULAR ALIGN,COLOR VISION,PSEUDOISOCHR OMAT PLATES,& FIELD VIS (MAY INC ALL/SOME SCRN DETERM FOR CONTRAST SENSITIV,VIS UND GLARE) 2016 [facility] AUDIOMETRIC TESTING OF GROUPS 2016 [facility] KNEE ORTHOSIS, IMMOBILIZER, CANVAS LONGITUDINAL, PREFABRICATED, [id number] 2020 [facility] IMMUNIZATION ADM,INTRAMUSCULAR INJECTION OF SEVERE AC RESPIRATORY SYNDROME CORONAVIR 2 (SARSCOV-2) (CORONAVIR DIS [COVID-19]) VACCINE,MRNALNP,SPI KE PROT,PRESERVATIVE FREE,100 MCG/0.5ML DOSAG;1ST DOSE 2020 [facility] INJECTION, KETOROLAC TROMETHAMINE, PER 15 MG 2019 [facility] PATIENT EDUCATION, NOT OTHERWISE CLASSIFIED, NON-PHYSICIAN PROVIDER, INDIVIDUAL, PER SESSION 2019 [facility] PATIENT EDUCATION, NOT OTHERWISE CLASSIFIED, NON-PHYSICIAN PROVIDER, INDIVIDUAL, PER SESSION 2019 [facility] DETERMINATION OF REFRACTIVE STATE 2018 [facility] PATIENT EDUCATION, NOT OTHERWISE CLASSIFIED, NON-PHYSICIAN PROVIDER, INDIVIDUAL, PER SESSION 2018 [facility] FINGER ORTHOSIS, WITHOUT JOINTS, MAY INCLUDE SOFT INTERFACE, CUSTOM FABRICATED INCLUDES FITTING AND ADJUSTMENT 2018 [facility] UNLISTED FLUOROSCOPIC PROCEDURE (EG, DIAGNOSTIC, INTERVENTIONAL) 2018 [facility] APPLICATION OF SHORT ARM SPLINT (FOREARM TO HAND); STATIC 2018 [facility] PRESCRIPTION DRUG, ORAL, NONCHEMOTHERAPEUTIC , NOT OTHERWISE SPECIFIED 2018 [facility] PATIENT EDUCATION, NOT OTHERWISE CLASSIFIED, NON-PHYSICIAN PROVIDER, INDIVIDUAL, PER SESSION 2017 [facility] Repair, primary, open or percutaneous, ruptured Achilles tendon; Repair, primary, open or percutaneous, ruptured Achilles tendon; [id number] 2022 [id number] [place] Extraction, erupted tooth or exposed root (elevation and/or forceps removal) 2016 [id number] [place] Social History Combined list of available smoking, tobacco, and other social history from [facility] and [facility] facilities. Social History Type Response Date Comment [facility] e Sex Representation Male (finding) 06/26/2022 Un known Organization This section is an empty social history section. [facility] Sexual Orientation Ambula tory Pharmacy Gender identity Ambulator y Pharmacy Assessment and Plan Combined list of future care activities from [facility] of Defense and Veterans Affairs facilities (e.g., assessment and plan notes, appointments, orders, and referrals). Additional future care activities may be listed in the Plan of Care section. Result Assessment and Plan Date Source Assessment and Plan Extracted from:Title : [facility] Author: MAYANK HACKETT Date: 12/02/24 1.?Encounter for other specified special examinations Extracted from:Title: Office Clinic Note Author: AILYN REID Date: 12/02/24 Encounter for examination and observation for other specified reasons Hearing WNL.? Patient had an early warning shift in his left ear on today's audiogram based on comparison of his 2017 baseline. Patient acknowledged his results.??Individual counseled on proper use of hand formed (Sound Guard) hearing protection insertion and uses in noise. ?FINAL?HCP review completed today. ?A copy of the hearing test was given to patient and a copy of the hearing test was uploaded into [employer]. Other specified counseling Hearing conservation counseling?for?INDIVIDUAL?patient included: ? - Dangers of hazardous noise and prevention of noise-induced hearing loss - The importance of periodic audiograms and/or follow-up testing and evaluation - Elements and rationale of the hearing conservation program - Effects of noise on hearing (occupational and non-occupational) - Command and employee responsibilities for hearing conservation - Impact hearing loss may have on career, safety and mission - Service-specific requirements Total Counseling Time: 16 minutes ? Ailyn Reid, Mortar Mixer Operator ? Answerer ? [facility], ? [place], [place] ? ? ? Extracted from:Title: LIMDU: LEFT ACHILLES RUPTURE S/P REPAIR Author: LUIS SKY NP Date: 06/26/23 1.?Rupture of left Achilles tendon 27 y/o ADM to clinic for LIMDU f/u. Pt. is engaged in care with a civilian PCM but requires this visit for administrative purposes. ? Clinical History: -[id number] Left Achilles rupture while running on treadmill and felt a pop. -[id number] Left Achilles repair -Engaged with [facility] and physical therapy twice weekly?post-operatively and progressing as expected. Pt. currently out of walking boot and back in regular uniform with working boots. ? ? -LIMDU initiated today [id number] -Monthly LIMDU f/u virtually due to distance. -Pt. v/u and concurs. ? 20-29 (15745)?minutes total time spent on evaluation and management.Standby was offered to the patient and documented in note if accepted.??Medications reconciled.??Care plan developed with the?patientand agreed upon.??Pt?verbalizes understanding of plan.???There were no obvious barriers to learning.? ? Luis Sky, KEHINDE, TUMBLING INSTRUCTOR, PROM BURN OFF OPERATOR-C , [place], [facility] ? Extracted from:Title: LIMDU: S/P LEFT ACHILLES RUPTURE REPAIR Author: LUIS SKY NP Date: 05/16/23 1.?Rupture of left Achilles tendon 27 y/o ADM to clinic for LIMDU f/u. Pt. is engaged in care with a civilian PCM but requires this visit for administrative purposes. ? Clinical History: -[id number] Left Achilles rupture while running on treadmill and felt a pop. -[id number] Left Achilles repair -Engaged with [facility] and physical therapy post-operatively and progressing as expected. Pt. currently out of walking boot. ? ? -LIMDU initiated today [id number] -Monthly LIMDU f/u virtually due to distance. -Pt. v/u and concurs. ? 20-29 (16749)?minutes total time spent on evaluation and management.Standby was offered to the patient and documented in note if accepted.??Medications reconciled.??Care plan developed with the?patientand agreed upon.??Pt?verbalizes understanding of plan.???There were no obvious barriers to learning.? ? Luis Sky DNP, TUMBLING INSTRUCTOR, PROM BURN OFF OPERATOR-C [place], [place], [facility] ? Extracted from:Title: LIMDU: L ACHILLES RUPTURE Author: LUIS SKY NP Date: 04/25/23 1.?Rupture of left Achilles tendon 27 y/o ADM to clinic for placement on LIMDU. Pt. is engaged in care with a civilian PCM but requires this visit for administrative purposes. ? Clinical History: -[id number] Left Achilles rupture while running on treadmill and felt a pop. -[id number] Left Achilles repair -Engaged with [facility] and physical therapy post-operatively and progressing as expected. ? ? -LIMDU initiated today [id number]; directed to Medical Boards -Monthly LIMDU f/u virtually due to distance. -Pt. v/u and concurs. ? 30-39 (82536)?minutes total time spent on evaluation and management.Standby was offered to the patient and documented in note if accepted.??Medications reconciled.??Care plan developed with the?patientand agreed upon.??Pt?verbalizes understanding of plan.???There were no obvious barriers to learning.? ? Luis Sky DNP, TUMBLING INSTRUCTOR, PROM BURN OFF OPERATOR-C [place], [place], [facility] ? Future Scheduled TestsLaboratoryHIV-1/2 AG/AB 4G CDD 12/02/24 [id number] Extracted from:Title : [facility] Author: MAYANK HACKETT Date: 12/02/24 1.?Encounter for other specified special examinations Extracted from:Title: Office Clinic Note Author: AILYN REID Date: 12/02/24 Encounter for examination and observation for other specified reasons Hearing WNL.? Patient had an early warning shift in his left ear on today's audiogram based on comparison of his 2017 baseline. Patient acknowledged his results.??Individual counseled on proper use of hand formed (Sound Guard) hearing protection insertion and uses in noise. ?FINAL?HCP review completed today. ?A copy of the hearing test was given to patient and a copy of the hearing test was uploaded into [employer]. Other specified counseling Hearing conservation counseling?for?INDIVIDUAL?patient included: ? - Dangers of hazardous noise and prevention of noise-induced hearing loss - The importance of periodic audiograms and/or follow-up testing and evaluation - Elements and rationale of the hearing conservation program - Effects of noise on hearing (occupational and non-occupational) - Command and employee responsibilities for hearing conservation - Impact hearing loss may have on career, safety and mission - Service-specific requirements Total Counseling Time: 16 minutes ? Ailyn Reid, Mortar Mixer Operator ? Answerer ? [facility], ? [place], [place] ? ? ? Extracted from:Title: LIMDU: LEFT ACHILLES RUPTURE S/P REPAIR Author: LUIS SKY NP Date: 06/26/23 1.?Rupture of left Achilles tendon 27 y/o ADM to clinic for LIMDU f/u. Pt. is engaged in care with a civilian PCM but requires this visit for administrative purposes. ? Clinical History: -[id number] Left Achilles rupture while running on treadmill and felt a pop. -[id number] Left Achilles repair -Engaged with [facility] and physical therapy twice weekly?post-operatively and progressing as expected. Pt. currently out of walking boot and back in regular uniform with working boots. ? ? -LIMDU initiated today [id number] -Monthly LIMDU f/u virtually due to distance. -Pt. v/u and concurs. ? 20-29 (20571)?minutes total time spent on evaluation and management.Standby was offered to the patient and documented in note if accepted.??Medications reconciled.??Care plan developed with the?patientand agreed upon.??Pt?verbalizes understanding of plan.???There were no obvious barriers to learning.? ? Luis Sky DNP, TUMBLING INSTRUCTOR, PROM BURN OFF OPERATOR-C [place], [place], [facility] ? Extracted from:Title: LIMDU: S/P LEFT ACHILLES RUPTURE REPAIR Author: LUIS SKY NP Date: 05/16/23 1.?Rupture of left Achilles tendon 27 y/o ADM to clinic for LIMDU f/u. Pt. is engaged in care with a civilian PCM but requires this visit for administrative purposes. ? Clinical History: -[id number] Left Achilles rupture while running on treadmill and felt a pop. -[id number] Left Achilles repair -Engaged with [facility] and physical therapy post-operatively and progressing as expected. Pt. currently out of walking boot. ? ? -LIMDU initiated today [id number] -Monthly LIMDU f/u virtually due to distance. -Pt. v/u and concurs. ? 20-29 (69148)?minutes total time spent on evaluation and management.Standby was offered to the patient and documented in note if accepted.??Medications reconciled.??Care plan developed with the?patientand agreed upon.??Pt?verbalizes understanding of plan.???There were no obvious barriers to learning.? ? Luis Sky DNP, TUMBLING INSTRUCTOR, PROM BURN OFF OPERATOR-C [place], [place], [facility] ? Extracted from:Title: LIMDU: L ACHILLES RUPTURE Author: LUIS SKY NP Date: 04/25/23 1.?Rupture of left Achilles tendon 27 y/o ADM to clinic for placement on LIMDU. Pt. is engaged in care with a civilian PCM but requires this visit for administrative purposes. ? Clinical History: -[id number] Left Achilles rupture while running on treadmill and felt a pop. -[id number] Left Achilles repair -Engaged with [facility] and physical therapy post-operatively and progressing as expected. ? ? -LIMDU initiated today [id number]; directed to Medical Boards -Monthly LIMDU f/u virtually due to distance. -Pt. v/u and concurs. ? 30-39 (00210)?minutes total time spent on evaluation and management.Standby was offered to the patient and documented in note if accepted.??Medications reconciled.??Care plan developed with the?patientand agreed upon.??Pt?verbalizes understanding of plan.???There were no obvious barriers to learning.? ? Luis Sky, DNP, TUMBLING INSTRUCTOR, PROM BURN OFF OPERATOR-C [place], [place], [facility] [place] ? Future Scheduled TestsLaboratoryHIV-1/2 AG/AB 4G CDD 12/02/24 12/18/2024 Unknown Organization Functional Status Combined list of recent functional and cognitive assessments recorded at [facility] Functional Halma Measurement (FIM) Scale: 1 = Total Assistance (Subject = 0% +), 2 = Maximal Assistance (Subject = 25% +), 3 = Moderate Assistance (Subject = 50% +), 4 = Minimal Assistance (Subject = 75% +), 5 = Supervision, 6 = Modified Halma (Device), 7 = Complete Halma (Timely, Safely). Assessment Date/Time Source Assessment Type Assessment Skill Assessment Score Assessment Details No data available for this section
--- OUTSIDE RECORDS SUMMARY | 2024-12-18 13:23 | XMS_ITS | Encounter Summary ---
Author Organization [facility] Address [address] [place] [id number] Care Team Providers Care Product Transfer Pumper Name Role Phone Tess Campoverde APRN Primary Care Provider Un available Encounter Details Date Type Department Care Team (Late st Contact Info) Description 07/24/2023 Scanned Document [facility] Department of Internal Medicine [place] [address] [place] [phone] Tess Campoverde APRN *need valid address Social [...] on filedocumented in this encounter Care Teams Product Transfer Pumper Relationship Specialty Start Date End Date Tess Campoverde APRN PCP - General documented as of this encounter
--- OUTSIDE RECORDS SUMMARY | 2024-12-18 13:23 | XMS_ITS | Encounter Summary ---
Author Organization [facility] Address [address] [place] [address] Care Team Providers Care Health Physicist Name Role Phone Tess Campoverde APRN Primary Care Provider Un available Encounter Details Date Type Department Care Team (Late st Contact Info) Description 10/31/2022 Scanned Document [facility] Department of Internal Medicine [place] [address] [place] [phone] Tess Campoverde APRN *need valid address Social [...] on filedocumented in this encounter Care Teams Health Physicist Relationship Specialty Start Date End Date Tess Campoverde APRN PCP - General documented as of this encounter
--- OUTSIDE RECORDS SUMMARY | 2024-12-18 13:23 | XMS_ITS | Encounter Summary ---
Author Organization [facility] Address [address] [place] [address] Care Team Providers Care Wireline Supervisor Name Role Phone Tess Campoverde APRN Primary Care Provider Un available Encounter Details Date Type Department Care Team (Late st Contact Info) Description 10/19/2022 Scanned Document [facility] Department of Internal Medicine [address] [phone] Swati May APRN [address] [place] [address] Social History Tobacco Use Types Packs/Day Years [...] on filedocumented in this encounter Care Teams Wireline Supervisor Relationship Specialty Start Date End Date Tess Campoverde APRN PCP - General documented as of this encounter
--- OUTSIDE RECORDS SUMMARY | 2024-12-18 13:23 | XMS_ITS | Clinical Summary ---
Author Organization [facility] Address [address] [place] [address] Care Team Providers Care Transformer Coil Winder Name Role Phone Tess Campoverde APRN Primary Care Provider Medications Medication Sig Dispensed Refills Start Date End Date Status traZODone (DESYREL) 50 MG tablet Take 50 mg by mouth every night at bedtime as needed. for sleep 0 03/29/2022 Active escitalopram (LEXAPRO) tablet 10 mg TAKE 1 TAB DAILY FOR ANXIETY AND DEPRESSION 0 05/04/2022 Active Family History Medical History Relation Name Comments Diabetes Father Hypertension Mother Relation Name Status Comments Father Mother Social History Tobacco Use Types Packs/Day Years Used Date Smoking Tobacco: Never Smokeless Tobacco: Never Alcohol Use Standard Drinks/Week Comments Yes 0 (1 standard drink = 0.6 oz pur e alcohol) Sex and Gender Information Value Date Recorded Sex Assigned at Male 03/30/2022 2:23 PM EDT Gender Identity Male 03/30/2022 2:23 PM EDT Sexual Orientation Not on file Job Start Date Occupation Industry Not on file Not on file Not on file Last Filed Vital Signs Vital Sign Reading Time Taken Comments Blood Pressure - - Pulse - - Temperature - - Respiratory Rate - - Oxygen Saturation - - Inhaled Oxygen Concentration - - Weight 96.2 kg (212 lb) 04/11/2022 10:05 AM EDT Height 172.7 cm (5' 8 ) 04/11/2022 10:05 AM EDT Body Mass Index 32.23 04/11/2022 10:05 AM EDT Plan of Treatment Health Maintenance Due Date Last Done Comments Hepatitis B Vaccines (1 of 3 - 3-dose series) 1997 Hepatitis C Screening 1997 COVID-19 Vaccine (#1) 02/05/1998 Depression Screening 2009 BMI Counseling 2015 Preventative Health Evaluation 2015 DTap / Tdap / Td (1 - Tdap) 2016 Influenza Vaccine (#1) 2024 Pneumococcal Vaccine Aged Out No long er eligible based on patient's age to complete this topic RSV Ped < 20 months Aged Out No longe r eligible based on patient's age to complete this topic Care Teams Transformer Coil Winder Relationship Specialty Start Date End Date Tess Campoverde APRN PCP - General Nurse Practitioner 04/11/22
[2024-12-18 14:20] LABS: MANUAL DIFF FLAG NO
[2024-12-18 14:27] LABS: Basophils Percent Auto 0.2 % (0-2); Eosinophils Absolute Auto 0.1 X10*3/uL (0.0-0.4); Eosinophils Percent Auto 1.9 % (0-4); Hematocrit 41.2 % (42.0-52.0); Hemoglobin 13.3 g/dl (14.0-18.0); Imm Gran Abs Auto 0.01 X10*3/uL (0.00-0.03); Imm Gran Pct Auto 0.2 % (0.0-0.4); Lymphocytes Absolute Auto 1.9 X10*3/uL (1.2-4.9); Lymphocytes Percent Auto 40.4 % (20-40); Mean Corpuscular HGB Conc 32.3 g/dl (31.0-36.0); Mean Corpuscular Hemoglobin 25.3 pg (27.0-33.0); Mean Corpuscular Volume 78.3 fL (80.0-98.0); Mean Platelet Volume 10.3 fL (9.4-12.4); Monocytes Absolute Auto 0.4 X10*3/uL (0.1-1.2); Monocytes Percent Auto 7.5 % (2-11); Neutrophils Absolute Auto 2.3 x10*3/uL (2.0-8.3); Neutrophils Percent Auto 49.8 % (45-73); Platelet Count 250 X10*3/uL (160-400); Red Blood Count 5.26 X10*6/uL (4.60-5.80); Red Cell Distribution Width 13.9 % (11.0-16.0); White Blood Count 4.7 X10*3/uL (4.8-10.8)
[2024-12-18 14:39] LABS: Estimated Average Glucose 126 mg/dL; Hemoglobin A1C 147.1467 umol/L; Total Hemoglobin (HGBA1C) 3525.4508 umol/L
[2024-12-18 14:59] LABS: Alanine Aminotransferase 39 U/L (0-40); Albumin Level 4.9 g/dL (3.5-5.0); Anion Gap 13 (12-20); Aspartate Amino Transferase 31 U/L (5-37); Bilirubin Total 0.4 mg/dL (0.0-1.0); Blood Urea Nitrogen 14 mg/dL (9-16); Calcium 10.1 mg/dL (8.4-10.2); Carbon Dioxide 27 mmol/L (22-29); Chloride 104 mmol/L (96-108); Cholesterol 192 mg/dL (<200); Estimated Glomerular Filt Rate > 60; Glucose Fasting 89 mg/dL (60-99); HDL Cholesterol 52 mg/dL (>40); LDL Cholesterol Calculated 121 mg/dL (<100); Sodium 140 mmol/L (135-145); TSH reflex Free T4 1.43 uIU/mL (0.32-4.0); Total Protein 7.7 g/dL (6.5-8.0); Triglycerides 95 mg/dL (<150)
[2024-12-18 15:53] LABS: Alkaline Phosphatase 68 U/L (39-117)
[2024-12-23 16:29] LABS: Glutamic acid decarboxylase Ab <5 IU/mL (<5)
[2024-12-25 01:14] LABS: Islet Cell Antibody Screen NEGATIVE (NEGATIVE)
== END 2024-12-18 12:45 | disposition home or self-care (01) ==
LOC: HO.WFDLDS 12:44
PROVIDERS: Visit Provider Physician Assistant
DX: Z00.00 Encounter for general adult medical examination without abnormal findings (principal); R73.01 Impaired fasting glucose; G47.30 Sleep apnea, unspecified; Z00.8 Encounter for other general examination; Z83.3 Family history of diabetes mellitus
CPT/HCPCS: 36415; 80053; 80061; 83036; 84443; 85025; 86341

== ENCOUNTER 2024-12-24 08:31 | Outpatient (AMB) | payer OTHER, SELFPAY ==
--- NOTE | 2024-12-24 08:35 | MHC.PC.OV ---
Vital Signs 12/24/24 08:40 Height 5 ft 7.91 in Weight 225 lb 6 oz BMI 34.4 BP 108/76 Blood Pressure Location Lt brachial Position Sitting Respiration 14 Pulse 64 Pulse Source Pulse Oximeter Pulse Oximetry (%) 98 Oxygen Delivery Method Room Air Intake Visit Reasons: fu Labs Intake Note: Follow up labs. Requesting new referral to Sleep medicine. It may be over a year since being seen. [place] [employer] Group Leader Required: No Allergies No Known Allergies Allergy (Verified 12/24/24 08:37) Medication List - Last Reconciled 12/24/24 by June Roman PA-C amitriptyline 50 mg PO BEDTIME lorazepam (Ativan) PO sumatriptan succinate (Imitrex) take 1 tab at onset of headache; if no relief may repeat 1 tab after at least 2 hrs; max = 4 tabs/24 hr PO valacyclovir (Valtrex) 2,000 mg (2 x 1 gram) PO Q12H PRN 1 day Tobacco use date assessed: 12/24/24 Dental Screening Dental Screen Date: 12/24/24 Did you have a dental visit in the last 12 months?: Yes Did you have a dental problem in the last 6 months where you did not have access to dental care?: No Was dental information given to patient?: Patient has dentist HPI fu Labs HPI Details Patient is a 29-year-old male for a follow up regarding his blood work. Psych: Anxiety and depression are stable. No SI/HI. Please see previous note for further detail Endo: Recent labs are consistent with prediabetes. GERD antibodies negative. Islet cell antibodies pending. C-peptide pending. He does have a family history of type 1 diabetes. Heme: Slight anemia. No prior study to compare. Neuro: On amitriptyline 50 mg at bedtime to help with headaches. He did have a normal MRI. Has been referred in the past to Neurology. GI: He does have intermittent diarrhea and constipation Abdominal ultrasound negative. He was referred to GI and is scheduled on 12/31 MSK: followed with hand specialist who thought likely tendonitis. 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 He would like a 2nd opinion regarding this. 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 1. Little interest or pleasure in doing things: several days 2. Feeling down, depressed, or hopeless: several days 3. Trouble falling or staying asleep, or sleeping too much: nearly every day 4. Feeling tired or having little energy: several days 5. Poor appetite or overeating: several days 6. Feeling bad about yourself - or that you are a failure or have let yourself or your family down: not at all 7. Trouble concentrating on things, such as reading the newspaper or watching television: not at all 8. Moving or speaking so slowly that other people could have noticed. Or the opposite - being so fidgety or restless that you have been moving around a lot more than usual: not at all 9. Thoughts that you would be better off or of hurting yourself in some way: not at all Total score: 7 Depression Screening Interpretation: Positive Depression Screening Follow-up: Existing condition and Community Mental Health Worker F/U Depression Screening Done: Yes 52979 - PHQ-9 Billing: Yes Source: Developed by Drs. Tejinder Li, Mariah Rosario, Yogesh Michael and colleagues, with an educational alyssa from [employer]. Thrive Questionnaire Date Thrive assessed: 12/24/24 I am a: Patient What is your living situation today?: I have a steady place to live Within the past 12 months, did the food you bought not last and you didn't have the money to get more?: Never true Within the past 12 months, did you worry whether your food would run out before you got money to buy more?: Never true Do you have trouble paying for medicines?: No Do you have trouble getting transportation to medical appointments?: No Do you have trouble paying your heating and electricity bill?: No Do you have trouble taking care of your child, family member or friend?: No Do you have trouble with day-to-day activities such as bathing, preparing meals, shopping, managing finances, etc.?: No Are you currently unemployed and looking for a job?: No Are you interested in more education?: No Please select the resources that you would like help with: None Currently or been in a relationship where the following occur: No concerns reported THRIVE Score: 0 AUDIT C Alcohol Use Questionnaire (AUDIT-C) 1. How often do you have a drink containing alcohol?: 2-3 times a week 2. How many drinks containing alcohol do you have on a typical day when you are drinking?: 3 or 4 3. How often do you have six or more drinks on one occasion?: Less than monthly Total Score: 5 ROSHNI-7 AMB Questionnaire ROSHNI-7 Date ROSHNI - 7 assessed: 12/24/24 Feeling nervous, anxious, or on edge: 1 = Several days Not being able to stop or control worryin = Several days Worrying too much about different things: 1 = Several days Trouble relaxin = Several days Being so restless that it is hard to sit still: 0 = Not at all Becoming easily annoyed or irritable: 1 = Several days Feeling afraid as if something awful might happen: 0 = Not at all Total ROSHNI-7 score (0-4 normal; 5-9 mild; 10-14 moderate; 15-21 severe): 5 Source: Developed by Drs. Tejinder Li, Mariah Rosario, Yogesh Michael and colleagues, with an educational alyssa from [employer]. Physical exam (Primary Care) Vital Signs: Last Vital Signs Pulse 64 12/24/24 08:40 Resp 14 12/24/24 08:40 BP 108/76 12/24/24 08:40 Pulse Ox 98 12/24/24 08:40 Oxygen Delivery Method Room Air 12/24/24 08:40 BMI result Body Mass Index 34.4 Tobacco/Smoking Status: Tobacco use Status Tobacco use date assessed 12/24/24 12/24/24 08:41 Patient Tobacco Use Status Never used Tobacco 12/24/24 08:38 e-Cigarette/Vaping Use Never Used 12/24/24 08:38 PHQ-9: PHQ-9 Score PHQ-9: Total score 7 12/24/24 08:41 Depression Screening Interpretation: Positive Depression Screening Follow-up: Existing condition and Community Mental Health Worker F/U Thrive Assessment: Date of Thrive Assessment Date Thrive assessed 04/30/24 12/24/24 08:38 Currently or been in a relationship where the following occur: No concerns reported Const Orientation/consciousness: patient oriented x3 HENMT Ears: hearing grossly normal bilaterally Neck Thyroid: Thyroid normal Lymphatic: no lymphadenopathy noted Resp Auscultation: clear to auscultation bilaterally Cardio Rate: regular rate Rhythm: regular rhythm Heart sounds: S1 normal heart sound present and S2 normal heart sound present GI Inspection: Yes normal to inspection Palpation (GI): Soft to palpation and Other GI palpation findings present (nontender, no cva tenderness) Auscultation: normoactive bowel sounds Rectal Exam - Male: Yes deferred Skin General skin exam: no rashes or lesions noted Neuro General: patient oriented x3, gait normal and no focal motor deficits Results Reviewed Results Reviewed: Laboratory Tests 06/12/23 12/18/24 11:00 12:46 WBC 4.7 L RBC 5.26 Hgb 13.3 L Hct 41.2 L MCV 78.3 L MCH 25.3 L MCHC 32.3 Plt Count 250 Sodium 140 Potassium 4.0 Chloride 104 Carbon Dioxide 27 Anion Gap 13 BUN 14 Creatinine 1.12 Estimated GFR > 60 Fasting Glucose 89 Estimat Average Glucose 126 Hemoglobin A1c % 6.0 Calcium 10.1 AST 31 ALT 39 Alkaline Phosphatase 68 Total Protein 7.7 Albumin 4.9 Triglycerides 95 Cholesterol 192 LDL Cholesterol, Calc 121 H HDL Cholesterol 52 TSH 1.43 Microalb/Creat Ratio 4.4 ROSHNI Antibody <5 c: Antonino Dyer MD; June Roman~ EXAMINATION: US ABDOMEN HISTORY: R10.9 - Unspecified abdominal pain TECHNIQUE: Real-time grayscale ultrasound imaging of the abdomen was performed and images were reviewed. COMPARISON: There are no prior studies for comparison. FINDINGS: Liver: The liver is normal in size and demonstrates homogeneous echotexture. No focal mass or intrahepatic biliary ductal dilatation is identified. There is normal hepatopedal flow in the portal vein. Gallbladder and biliary tree: The gallbladder is unremarkable, without evidence of calculi, wall thickening, or pericholecystic fluid. There is no sonographic Ordoñez sign. The common bile duct is normal in caliber measuring 2 mm. Kidneys: The right kidney measures 9.9 cm in length. Left kidney measures 9.8 cm in length. The kidneys are unremarkable, without evidence of masses, hydronephrosis, or calculi. Pancreas: The pancreatic head, neck, and body are unremarkable. The pancreatic tail is obscured by bowel gas. Spleen: The spleen is normal in size and contour, measuring 8.1 cm in length. Abdominal aorta and inferior vena cava: The visualized portions of the abdominal aorta and inferior vena cava are normal in caliber. There is no free fluid in the abdomen. US/US abdomen complete IMPRESSION: Unremarkable abdominal ultrasound. 4 views left wrist Comparison: None Findings: No carpal bone fractures or carpal malalignment. Distal radiocarpal joint intact. Radial and ulnar styloid preserved. Suspect a small geode within the scaphoid. No erosive changes Bone mineralization and soft tissues within normal limits. No radiopaque foreign body. Impression: 1. Suspect a small geode distal scaphoid. Coding Level of Care Code Est Pt Level 4 (11680) Complex EM visit Add On G2211 Diagnoses Bilateral wrist pain M25.531; M25.532 Prediabetes R73.03 Anemia D64.9 Alternating constipation and diarrhea R19.8 Additional Codes PHQ-9 - 86652 - PHQ-9 Billing: Yes ([id number]) Assessment & Plan Assessment & Plan (1) Bilateral wrist pain: Code(s): M25.531 - Pain in right wrist; M25.532 - Pain in left wrist Category: Medical Plan: Referral to [place] [facility] (2) Prediabetes: Code(s): R73.03 - Prediabetes Category: Medical Plan: Labs ordered. We will follow up pending test results (3) Anemia: Code(s): D64.9 - Anemia, unspecified Category: Medical Plan: Labs ordered. We will follow up pending test results (4) Alternating constipation and diarrhea: Code(s): R19.8 - Other specified symptoms and signs involving the digestive system and abdomen Category: Medical Plan: Has follow up arranged with GI Orders: Orders C Peptide Today R73.03 - Prediabetes Insulin Today R73.03 - Prediabetes Referrals Orthopedics Referral M25.531 - Pain in right wrist, M25.532 - Pain in left wrist
[2024-12-24 08:40] VITALS: BP 108/76; PULSE 64; RESP 14; O2SAT 98; BMI 34.4
--- OUTSIDE RECORDS SUMMARY | 2024-12-24 09:52 | XMS_ITS | Encounter Summary ---
Author Organization [facility] Address [address] [place] [address] Care Team Providers Care Open Shank Coverer Name Role Phone Tess Campoverde APRN Primary Care Provider Un available Reason for Visit * Reason Comments Medication Refill Encounter Details Date Type Department Care Team (Late st Contact Info) Description 01/29/2023 Refill [facility] Department of Internal Medicine [place] [address] [place] [address] Tess Campoverde APRN *need valid [...] uncontrolled documented in this encounter Care Teams Open Shank Coverer Relationship Specialty Start Date End Date Tess Campoverde APRN PCP - General documented as of this encounter
--- OUTSIDE RECORDS SUMMARY | 2024-12-24 09:52 | XMS_ITS | Encounter Summary ---
Author Hub Preferred Language Nepalese Marital Status Moravian Affiliation Unknown Race Black or Olivia rican Ethnic Group Unknown Author Organization [facility] Address [address] [place] [address] Care Team Providers Care Arborist Representative Name Role Phone Tess Campoverde APRN Primary Care Provider Un available Encounter Details Date Type Department Care Team (Late st Contact Info) Description 01/19/2023 Scanned Document [facility] Department of Internal Medicine [place] [address] [place] [phone] Tess Campoverde APRN *need valid address Social [...] on filedocumented in this encounter Care Teams Arborist Representative Relationship Specialty Start Date End Date Tess Campoverde APRN PCP - General documented as of this encounter
--- OUTSIDE RECORDS SUMMARY | 2024-12-24 09:52 | XMS_ITS | Encounter Summary ---
Author Organization [facility] Address [address] [place] [address] Care Team Providers Care Teller Name Role Phone Tess Campoverde APRN Primary Care Provider Un available Encounter Details Date Type Department Care Team (Late st Contact Info) Description 10/19/2022 Scanned Document [facility] Department of Internal Medicine [address] [phone] Swati May APRN [address] [place] [address] Social History Tobacco Use Types Packs/Day Years [...] on filedocumented in this encounter Care Teams Teller Relationship Specialty Start Date End Date Tess Campoverde APRN PCP - General documented as of this encounter
--- OUTSIDE RECORDS SUMMARY | 2024-12-24 09:52 | XMS_ITS | Encounter Summary ---
Author Organization [facility] Address [address] [place] [address] Care Team Providers Care Geographic Information System Analyst Name Role Phone Tess Campoverde APRN Primary Care Provider Un available Encounter Details Date Type Department Care Team (Late st Contact Info) Description 11/23/2022 Scanned Document [facility] Department of Internal Medicine [place] [address] [place] [phone] Tess Campoverde APRN *need valid address Social [...] on filedocumented in this encounter Care Teams Geographic Information System Analyst Relationship Specialty Start Date End Date Tess Campoverde APRN PCP - General documented as of this encounter
--- OUTSIDE RECORDS SUMMARY | 2024-12-24 09:52 | XMS_ITS | Encounter Summary ---
Author Organization [facility] Address [address] [place] [address] Care Team Providers Care Marketing Producer Name Role Phone Tess Campoverde APRN Primary Care Provider Un available Encounter Details Date Type Department Care Team (Late st Contact Info) Description 05/08/2023 Scanned Document [facility] Department of Internal Medicine [place] [address] [place] [phone] Tess Campoverde APRN *need valid address Social [...] on filedocumented in this encounter Care Teams Marketing Producer Relationship Specialty Start Date End Date Tess Campoverde APRN PCP - General documented as of this encounter
--- OUTSIDE RECORDS SUMMARY | 2024-12-24 09:52 | XMS_ITS | Encounter Summary ---
Author Organization [facility] Address [address] [place] [address] Care Team Providers Care Blow Torch Operator Name Role Phone Tess Campoverde APRN Primary Care Provider Un available Reason for Visit * Reason Comments Medication Refill Encounter Details Date Type Department Care Team (Late st Contact Info) Description 02/28/2023 Refill [facility] Department of Internal Medicine [place] [address] [place] [address] Tess Campoverde APRN *need valid [...] unspecified documented in this encounter Care Teams Blow Torch Operator Relationship Specialty Start Date End Date Tess Campoverde APRN PCP - General documented as of this encounter
--- OUTSIDE RECORDS SUMMARY | 2024-12-24 09:52 | XMS_ITS | Encounter Summary ---
Author Organization [facility] Address [address] [place] [address] Care Team Providers Care Roll Tension Tester Name Role Phone Tess Campoverde APRN Primary Care Provider Un available Encounter Details Date Type Department Care Team (Late st Contact Info) Description 04/19/2023 Scanned Document [facility] Department of Internal Medicine [place] [address] [place] [phone] Tess Campoverde APRN *need valid address Social [...] on filedocumented in this encounter Care Teams Roll Tension Tester Relationship Specialty Start Date End Date Tess Campoverde APRN PCP - General documented as of this encounter
--- OUTSIDE RECORDS SUMMARY | 2024-12-24 09:52 | XMS_ITS | Encounter Summary ---
Author Organization [facility] Address [address] [place] [address] Care Team Providers Care Payment Collector Name Role Phone Tess Campoverde APRN Primary Care Provider Un available Encounter Details Date Type Department Care Team (Late st Contact Info) Description 10/31/2022 Scanned Document [facility] Department of Internal Medicine [place] [address] [place] [phone] Tess Campoverde APRN *need valid address Social [...] on filedocumented in this encounter Care Teams Payment Collector Relationship Specialty Start Date End Date Tess Campoverde APRN PCP - General documented as of this encounter
--- OUTSIDE RECORDS SUMMARY | 2024-12-24 09:52 | XMS_ITS | Encounter Summary ---
Author Organization [facility] Address [address] [place] [address] Care Team Providers Care Technical Project Coordinator Name Role Phone Tess Campoverde APRN Primary Care Provider Un available Reason for Visit * Reason Comments Medication Refill Encounter Details Date Type Department Care Team (Late st Contact Info) Description 11/13/2022 Refill [facility] Department of Internal Medicine [place] [address] [place] [address] Tess Campoverde APRN *need valid [...] uncontrolled documented in this encounter Care Teams Technical Project Coordinator Relationship Specialty Start Date End Date Tess Campoverde APRN PCP - General documented as of this encounter
--- OUTSIDE RECORDS SUMMARY | 2024-12-24 09:53 | XMS_ITS | Encounter Summary ---
Author Organization [facility] Address [address] [place] [address] Care Team Providers Care Ignition Expert Name Role Phone Tess Campoverde APRN Primary Care Provider Un available Encounter Details Date Type Department Care Team (Late st Contact Info) Description 07/24/2023 Scanned Document [facility] Department of Internal Medicine [place] [address] [place] [phone] Tess Campoverde APRN *need valid address Social [...] on filedocumented in this encounter Care Teams Ignition Expert Relationship Specialty Start Date End Date Tess Campoverde APRN PCP - General documented as of this encounter
--- OUTSIDE RECORDS SUMMARY | 2024-12-24 09:53 | XMS_ITS | Clinical Summary ---
Author Organization [facility] Address [address] [place] [address] Care Team Providers Care Intensive Care Unit Nurse Name Role Phone Tess Campoverde APRN Primary [...] age to complete this topic Care Teams Intensive Care Unit Nurse Relationship Specialty Start Date End Date Tess Campoverde APRN PCP - General Nurse Practitioner 04/11/22
--- OUTSIDE RECORDS SUMMARY | 2024-12-24 09:53 | XMS_ITS | Clinical Summary ---
Author Organization [facility] Address [address] [place] [address] Care Team Providers Care Ironer Machine Name Role Phone Tess Campoverde APRN Primary Care Provider Un available Allergies No known active allergies Medications ergocalciferol (VITAMIN D2,DRISDOL) 51365 units Cap Take by mouth. 2 Active [...] patient's age to complete this topic Insurance [facility] Care Teams Ironer Machine Relationship Specialty Start Date End Date Tess Campoverde APRN PCP - General
--- OUTSIDE RECORDS SUMMARY | 2024-12-24 09:53 | XMS_ITS | Encounter Summary ---
Author Organization [facility] Address [address] [place] [address] Care Team Providers Care Hacksaw Inspector Name Role Phone Tess Campovered APRN Primary Care Provider Un available Encounter Details Date Type Department Care Team (Late st Contact Info) Description 10/13/2022 Scanned Document [facility] Department of Internal Medicine [place] [address] [place] [phone] Tess Campoverde APRN *need valid address Social [...] on filedocumented in this encounter Care Teams Hacksaw Inspector Relationship Specialty Start Date End Date Tess Campoverde APRN PCP - General documented as of this encounter
== END 2024-12-24 09:03 | disposition home or self-care (01) ==
LOC: HO.HMCFM 08:32
PROVIDERS: PCP Family Medicine; Visit Provider Physician Assistant
DX: M25.531 Pain in right wrist (principal); M25.532 Pain in left wrist; R73.03 Prediabetes; D64.9 Anemia, unspecified; R19.8 Other specified symptoms and signs involving the digestive system and abdomen

== ENCOUNTER → 2024-12-24 08:31 | Outpatient (BNVA) | payer OTHER, SELFPAY | PROVIDERS: PCP Family Medicine; Visit Provider Physician Assistant | DX: Z13.89 Encounter for screening for other disorder (principal) ==

== ENCOUNTER 2024-12-24 08:56 | Outpatient (REF) | payer OTHER, SELFPAY ==
--- OUTSIDE RECORDS SUMMARY | 2024-12-24 10:13 | XMS_ITS | Encounter Summary ---
Author Organization [facility] Address [address] [place] [address] Care Team Providers Care Media Relations Specialist Name Role Phone Tess Campoverde APRN Primary Care Provider Un available Reason for Visit * Reason Comments Medication Refill Encounter Details Date Type Department Care Team (Late st Contact Info) Description 02/28/2023 Refill [facility] Department of Internal Medicine [place] [address] [place] [address] Tess Campoverde APRN *need valid [...] unspecified documented in this encounter Care Teams Media Relations Specialist Relationship Specialty Start Date End Date Tess Campoverde APRN PCP - General documented as of this encounter
--- OUTSIDE RECORDS SUMMARY | 2024-12-24 10:13 | XMS_ITS | Encounter Summary ---
Author Organization [facility] Address [address] [place] [address] Care Team Providers Care Phlebotomy Specialist Name Role Phone Tess Campoverde APRN Primary Care Provider Un available Encounter Details Date Type Department Care Team (Late st Contact Info) Description 10/31/2022 Scanned Document [facility] Department of Internal Medicine [place] [address] [place] [phone] Tess Campoverde APRN *need valid address Social [...] on filedocumented in this encounter Care Teams Phlebotomy Specialist Relationship Specialty Start Date End Date Tess Campoverde APRN PCP - General documented as of this encounter
--- OUTSIDE RECORDS SUMMARY | 2024-12-24 10:13 | XMS_ITS | Encounter Summary ---
Author Organization [facility] Address [address] [place] [address] Care Team Providers Care Financial Services Representative Name Role Phone Tess Campoverde APRN Primary Care Provider Un available Encounter Details Date Type Department Care Team (Late st Contact Info) Description 11/23/2022 Scanned Document [facility] Department of Internal Medicine [place] [address] [place] [phone] Tess Campoverde APRN *need valid address Social [...] on filedocumented in this encounter Care Teams Financial Services Representative Relationship Specialty Start Date End Date Tess Campoverde APRN PCP - General documented as of this encounter
--- OUTSIDE RECORDS SUMMARY | 2024-12-24 10:13 | XMS_ITS | Encounter Summary ---
Author Organization [facility] Address [address] [place] [address] Care Team Providers Care Fence Making Machine Operator Name Role Phone Tess Campoverde APRN Primary Care Provider Un available Reason for Visit * Reason Comments Medication Refill Encounter Details Date Type Department Care Team (Late st Contact Info) Description 01/29/2023 Refill [facility] Department of Internal Medicine [place] [address] [place] [address] Tess Campoverde APRN *need valid [...] uncontrolled documented in this encounter Care Teams Fence Making Machine Operator Relationship Specialty Start Date End Date Tess Campoverde APRN PCP - General documented as of this encounter
--- OUTSIDE RECORDS SUMMARY | 2024-12-24 10:13 | XMS_ITS | Encounter Summary ---
Author Organization Formerly [facility] Address [address] [place] [address] Care Team Providers Care Earrings Fabricator Name Role Phone Tess Campoverde APRN Primary Care Provider Un available Encounter Details Date Type Department Care Team (Late st Contact Info) Description 07/24/2023 Scanned Document [facility] Department of Internal Medicine [place] [address] [place] [phone] Tess Campoverde APRN *need valid address Social [...] on filedocumented in this encounter Care Teams Earrings Fabricator Relationship Specialty Start Date End Date Tess Campoverde APRN PCP - General documented as of this encounter
--- OUTSIDE RECORDS SUMMARY | 2024-12-24 10:13 | XMS_ITS | Encounter Summary ---
Author Organization [facility] Address [address] [place] [address] Care Team Providers Care Facsimile Machine Operator Name Role Phone Tess Campoverde APRN Primary Care Provider Un available Encounter Details Date Type Department Care Team (Late st Contact Info) Description 01/19/2023 Scanned Document [facility] Department of Internal Medicine [place] [address] [place] [phone] Tess Campoverde APRN *need valid address Social [...] on filedocumented in this encounter Care Teams Facsimile Machine Operator Relationship Specialty Start Date End Date Tess Campoverde APRN PCP - General documented as of this encounter
--- OUTSIDE RECORDS SUMMARY | 2024-12-24 10:13 | XMS_ITS | Encounter Summary ---
Author Organization [facility] Address [address] [place] [address] Care Team Providers Care Automotive Manager Name Role Phone Tess Campoverde APRN Primary Care Provider Un available Encounter Details Date Type Department Care Team (Late st Contact Info) Description 05/08/2023 Scanned Document [facility] Department of Internal Medicine [place] [address] [place] [phone] Tess Campoverde APRN *need valid address Social [...] on filedocumented in this encounter Care Teams Automotive Manager Relationship Specialty Start Date End Date Tess Campoverde APRN PCP - General documented as of this encounter
--- OUTSIDE RECORDS SUMMARY | 2024-12-24 10:13 | XMS_ITS | Encounter Summary ---
Author Organization [facility] Address [address] [place] [address] Care Team Providers Care Indian Trader Name Role Phone Tess Campoverde APRN Primary Care Provider Un available Reason for Visit * Reason Comments Medication Refill Encounter Details Date Type Department Care Team (Late st Contact Info) Description 11/13/2022 Refill [facility] Department of Internal Medicine [place] [address] [place] [address] Tess Campoverde APRN *need valid [...] uncontrolled documented in this encounter Care Teams Indian Trader Relationship Specialty Start Date End Date Tess Campoverde APRN PCP - General documented as of this encounter
--- OUTSIDE RECORDS SUMMARY | 2024-12-24 10:13 | XMS_ITS | Clinical Summary ---
Author Organization [facility] Address [address] [place] [address] Care Team Providers Care Timing Machine Operator Name Role Phone Tess Campoverde APRN Primary Care Provider Un available Allergies No known active allergies Medications ergocalciferol (VITAMIN D2,DRISDOL) 12644 units Cap Take by mouth. 2 Active [...] patient's age to complete this topic Insurance [facility] Care Teams Timing Machine Operator Relationship Specialty Start Date End Date Tess Campoverde APRN PCP - General
--- OUTSIDE RECORDS SUMMARY | 2024-12-24 10:13 | XMS_ITS | Encounter Summary ---
Author Organization [facility] Address [address] [place] [address] Care Team Providers Care Impregnator And Drier Helper Name Role Phone Tess Campoverde APRN Primary Care Provider Un available Encounter Details Date Type Department Care Team (Late st Contact Info) Description 10/19/2022 Scanned Document [facility] Department of Internal Medicine [address] [phone] Swati May APRN [address] [place] [address] Social History Tobacco Use Types Packs/Day Years [...] on filedocumented in this encounter Care Teams Impregnator And Drier Helper Relationship Specialty Start Date End Date Tess Campoverde APRN PCP - General documented as of this encounter
--- OUTSIDE RECORDS SUMMARY | 2024-12-24 10:13 | XMS_ITS | Encounter Summary ---
Author Organization [facility] Address [address] [place] [address] Care Team Providers Care Wire Mill Rover Name Role Phone Tess Campoverde APRN Primary Care Provider Un available Encounter Details Date Type Department Care Team (Late st Contact Info) Description 04/19/2023 Scanned Document [facility] Department of Internal Medicine [place] [address] [place] [phone] Tess Campoverde APRN *need valid address Social [...] on filedocumented in this encounter Care Teams Wire Mill Rover Relationship Specialty Start Date End Date Tess Campoverde APRN PCP - General documented as of this encounter
--- OUTSIDE RECORDS SUMMARY | 2024-12-24 10:13 | XMS_ITS | Continuity of Care Document ---
Author Name [facility] Organization [facility] Care Team Providers Care Photo Lab Technician Name Role Phone [facility] Unavailable Unavailable Problems Combined list of problems from Department of Defense and Veterans Affairs facilities. It does not include entries that were removed or entered in error. Problem Status Onset Date Problem Type Date of Resolution Comments Source Encounter for examination and observation for other specified reasons Active 5 Diagnosis [facility] [place] Other specified counseling Active 5 Diagnosis [facility] [place] Encounter for other specified special examinations Active 5 Diagnosis [facility] [place] Pseudofolliculitis barbae Inactive 2 Condition [facility] Pain in left finger(s) Inactive 0 Condition [facility] Nondisplaced fracture of proximal phalanx of right little finger Active 9 Condition [facility] Anthrax Vaccine, For Subcutaneous Use Inactive 8 Condition [facility] visit for: services physical Inactive 7 Condition [facility] Rupture of left Achilles tendon Active Condition [facility] [place] Medications Combined list of outpatient medications from [...] ORAL, ZYDUS PHARMACEU, 100 ea. BOTTLE Active [id number] 2023 90 Pharmac y Data Transac tion Service Facilit y AMITRIPTYLI NE HCL (amitriptyl ine HCl), 25 MG, TABLET, ORAL, ZYDUS PHARMACEU, 1000 ea. BOTTLE Active [id number] 2023 90 Pharmac y Data Transac tion Service Facilit y escitalopra m 20 mg oral tablet 90 EA, 0 Refill(s ), TAKE 1/2 TABLET BY MOUTH EVERY DAY FOR 2 WEEKS THEN INCREASE TO TABLET DAILY, 0 total refill(s ), Soft Stop Ordered 2022 [facility] [place] KETOCONAZOL E (ketoconazo le), 2 %, CREAM (G), TOPICAL, TEVA [place], 60 g TUBE Active [id number] 2023 60 Pharmac y Data Transac tion Service Facilit y meloxicam 15 mg oral tablet 1 tab(s), Oral, Daily, # 30 tab(s), 0 total refill(s ), Maintena nce Oral (given by mouth) Ordered 2022 30.0 [facility] [place] ondansetron 4 mg oral tablet 21 EA, 0 Refill(s ), TAKE 1 TABLET BY MOUTH EVERY 8 HOURS NEEDED FOR NAUSEA, 0 total refill(s ), Soft Stop Discont inued 05/16/20232022 00[facility] ONDANSETRON ODT (ONDANSETRO N), 4 MG, TAB RAPDIS, ORAL, AUROBINDO PHARM, 30 ea. BLIST PACK Cancele d [id number] : 2023 0 Pharmac y Data Transac tion Service Facilit y oxyCODONE 5 mg oral tablet 30 EA, 0 Refill(s ), TAKE 1 TABLET BY MOUTH EVERY 4 TO 6 HOURS NEEDED FOR PAIN SEVERE. DO NOT DRIVE, 0 total refill(s ), Soft Stop Discont inued 05/16/20232022 [facility] [place] SUMATRIPTAN SUCCINATE (sumatripta n succinate), 25 MG, TABLET, ORAL, [employer] 9 ea. BLIST PACK Active [id number] 2023 10 Pharmac y Data Transac tion Service Facilit y Allergies, Adverse Reactions, Alerts Combined list of allergies from Department of Defense and Veterans Affairs facilities. It does not include entries that were removed or entered in error. Substance Category Reaction Severity Reaction type Status Date Reported Comments Source No Known Allergies Drug allergy (disorder) active 9 [facility] Immunizations Combined list of available immunizations from the Department of Defense and Veterans Affairs facilities. Immunization Series Date Given Administered By Site Reaction Lot Number CVX Code Drug Molder Meat Status Comments Source COVID Vaccine Moderna 2021 TRS 207 complet ed COVID Vaccine Moderna 01/20/22 Given Ambulat ory Pharmac y COVID-19, mRNA, LNP-S, PF, 100 mcg or 50 mcg dose 2021 DUNG, () Not Given COVID-19, mRNA, LNP-S, PF, 100 mcg or 50 mcg dose DoD influenza, injectable, quadrivalent- pf 2020 [id number] 150 Seqirus complet ed influenza , injectabl e, quadrival ent-pf 05/27/21 Given Ambulat ory Pharmac y influenza, injectable, quadrivalent- pf 2020 [id number] 150 Seqirus complet ed influenza , injectabl e, quadrival ent-pf 05/27/21 Given Ambulat ory Pharmac y Influenza, injectable, quadrivalent, preservative free 0 2020 [id number] 463 150 Seqirus (SEQ) complet ed Influenza , injectabl e, quadrival ent, preservat enma free DoD typhoid Vi capsular polysaccharid e vac 2020 [id number] 101 sanofi pasteur complet ed typhoid Vi capsular polysacch aride vac 12/11/20 Given Ambulat ory Pharmac y yellow fever vaccine 2020 [id number] 37 sanofi pasteur complet ed yellow fever vaccine 12/11/20 Given Ambulat ory Pharmac y meningococcal A,C,Y,W-135 (MCV4P) 2020 [id number] 114 sanofi pasteur complet ed meningoco ccal A,C,Y,W-1 35 (MCV4P) 12/11/20 Given Ambulat ory Pharmac y yellow fever vaccine 2020 [id number] 37 sanofi pasteur complet ed yellow fever vaccine 12/11/20 Given Ambulat ory Pharmac y typhoid Vi capsular polysaccharid e vac 2020 [id number] 101 sanofi pasteur complet ed typhoid Vi capsular polysacch aride vac 12/11/20 Given Ambulat ory Pharmac y meningococcal A,C,Y,W-135 (MCV4P) 2020 [id number] 114 sanofi pasteur complet ed meningoco ccal A,C,Y,W-1 35 (MCV4P) 12/11/20 Given Ambulat ory Pharmac y yellow fever vaccine 0 2020 [id number] 37 Sanofi Pasteur (PMC) complet ed yellow fever vaccine DoD typhoid Vi capsular polysaccharid e vaccine 2 2020 [id number] 101 Sanofi Pasteur (PMC) complet ed typhoid Vi capsular polysacch aride vaccine DoD meningococcal polysaccharid e (groups A, C, Y and W-135) diphtheria toxoid conjugate vaccine (MCV4P) 0 2020 [id number] 114 Sanofi Pasteur (PMC) complet ed meningoco ccal polysacch aride (groups A, C, Y and W-135) diphtheri a toxoid conjugate vaccine (MCV4P) DoD COVID Vaccine Moderna 2020 [id number] 207 complet ed COVID Vaccine Moderna 10/24/20 Given Ambulat ory Pharmac y SARS-COV-2 (COVID-19) vaccine, mRNA, spike protein, LNP, preservative free, 100 mcg or 50 mcg dose 2 2020 [id number] 207 Moderna US, Inc. (MOD) complet ed SARS-COV- 2 (COVID-19 ) vaccine, mRNA, spike protein, LNP, preservat enma free, 100 mcg or 50 mcg dose DoD COVID Vaccine Moderna 2020 [id number] 207 complet ed COVID Vaccine Moderna 09/24/20 Given Ambulat ory Pharmac y COVID Vaccine Moderna 2020 zzLef t Arm [id number] 207 complet ed COVID Vaccine Moderna 09/24/20 Given Ambulat ory Pharmac y SARS-COV-2 (COVID-19) vaccine, mRNA, spike protein, LNP, preservative free, 100 mcg or 50 mcg dose 1 2020 LINCOLN SEGURA [id number] 207 Moderna US, Inc. (MOD) complet ed SARS-COV- 2 (COVID-19 ) vaccine, mRNA, spike protein, LNP, preservat enma free, 100 mcg or 50 mcg dose DoD influenza, injectable, quadrivalent 2019 [id number] 167 158 Seqirus complet ed influenza , injectabl e, quadrival ent 05/25/20 Given Ambulat ory Pharmac y influenza, injectable, quadrivalent 2019 [id number] 167 158 Seqirus complet ed influenza , injectabl e, quadrival ent 05/25/20 Given Ambulat ory Pharmac y influenza, injectable, quadrivalent, contains preservative 0 2019 [id number] 167 158 Seqirus (SEQ) complet ed influenza , injectabl e, quadrival ent, contains preservat enma DoD typhoid Vi capsular polysaccharid e vac 2018 (C) [id number] 101 sanofi pasteur complet ed typhoid Vi capsular polysacch aride vac 03/24/19 Given Ambulat ory Pharmac y typhoid Vi capsular polysaccharid e vac 2018 C [id number] 101 sanofi pasteur complet ed typhoid Vi capsular polysacch aride vac 03/24/19 Given Ambulat ory Pharmac y typhoid Vi capsular polysaccharid e vaccine 1 2018 C [id number] 101 Sanofi Pasteur (PMC) complet ed typhoid Vi capsular polysacch aride vaccine DoD influenza, injectable, quadrivalent 2017 [id number] 158 GlaxoSmithK[employer] ne complet ed influenza , injectabl e, quadrival ent 07/24/18 Given Ambulat ory Pharmac y influenza, injectable, quadrivalent, contains preservative 0 2017 [id number] 158 SmithKline (SKB) complet ed influenza , injectabl e, quadrival ent, contains preservat enma DoD anthrax vaccine 2017 [id number] 24 Emergent [employer] complet ed anthrax vaccine 12/05/17 Given Ambulat ory Pharmac y anthrax vaccine 2017 [id number] 24 [employer] complet ed anthrax vaccine 12/05/17 Given Ambulat ory Pharmac y anthrax vaccine 2 2017 [id number] 24 Emergent [employer] Edith (MIP) complet ed anthrax vaccine DoD anthrax vaccine 2017 [id number] 24 [employer] complet ed anthrax vaccine 11/07/17 Given Ambulat ory Pharmac y anthrax vaccine 1 2017 [id number] 24 [employer] Edith (MIP) complet [...] adult dosage DoD influenza, injectable, quadrivalent 2016 [id number] 158 Seqirus complet ed influenza , injectabl e, quadrival ent 06/01/17 Given Ambulat ory Pharmac y influenza, injectable, quadrivalent 2016 [id number] 158 Seqirus complet ed influenza , injectabl e, quadrival ent 06/01/17 Given Ambulat ory Pharmac y influenza, injectable, quadrivalent, contains preservative 0 2016 [id number] 158 Seqirus (SEQ) comple t ed influenza , injectabl e, quadrival ent, contains preservat enma DoD poliovirus vaccine, inactivated 2016 [id number] 10 sanofi pasteur complet ed polioviru s vaccine, inactivat ed 09/26/16 Given Ambulat ory Pharmac y poliovirus vaccine, inactivated 2016 zzLef t Arm [id number] 10 sanofi pasteur complet ed polioviru s vaccine, inactivat ed 09/26/16 Given Ambulat ory Pharmac y poliovirus vaccine, inactivated 1 2016 NABEEL GOMEZ [id number] 10 Sanofi Pasteur (PMC) complet ed polioviru [...] purified protein derivative 2016 zzLef t Arm [id number] 96 sanofi pasteur complet ed Patient Tolerance : Negative Ambulat ory Pharmac y tuberculin skin test; purified protein derivative solution, intradermal 0 2016 ZACHARIAH SALTER [id number] 96 Sanofi Pasteur (PMC) complet ed tuberculi n skin test; purified protein derivativ e solution, intraderm al DoD influenza, seasonal, injectable-pf 2016 [id number] 140 Seqirus complet ed influenza , seasonal, injectabl e-pf 08/23/16 Given Ambulat ory Pharmac y tetanus, diphtheria, acellular pertu is 2016 [id number] 115 Unknown complet ed tetanus, diphtheri a, acellular pertussis 08/23/16 Given Ambulat ory Pharmac y adenovirus vaccine, live 2016 [id number] 6 143 Unknown complet ed adenoviru s vaccine, live 08/23/16 Given Ambulat ory Pharmac y influenza, seasonal, injectable-pf 2016 zzL t Arm [id number] 140 Seqirus complet ed influenza , seasonal, injectabl e-pf 08/23/16 Given Ambulat ory Pharmac y meningococcal A,C,Y,W-135 (MCV4P) 2016 zSaurav cueva Arm [id number] 114 sanofi pasteur complet ed meningoco ccal A,C,Y,W-1 35 (MCV4P) 08/23/16 Given Ambulat ory Pharmac y tetanus, diphtheria, acellular pertu is 2016 Susanne Arm [id number] 115 Unknown complet ed tetanus, diphtheri a, acellular pertussis 08/23/16 Given Ambulat ory Pharmac y adenovirus vaccine, live 2016 [id number] 6 143 Unknown complet ed adenoviru s vaccine, live 08/23/16 Given Ambulat ory Pharmac y meningococcal polysaccharid e (groups A, C, Y and W-135) diphtheria toxoid conjugate vaccine (MCV4P) 1 2016 WILL INGRAM [id number] 114 Sanofi Pasteur (PMC) complet ed meningoco [...] preservative free 1 2016 WILL INGRAM Angel [id number] 140 Seqirus (SEQ) complet ed Influenza , seasonal, injectabl e, preservat enma free [facility] Adenovirus, type 4 and type 7, live, oral 1 2016 WILL INGRAM Angel [id number] 6 143 Other (OTH) complet ed Adenoviru [...] Blood Pressure Manual Automatic 04/25/2023 16:41:00 [facility] [place] Systolic Blood Pressure 131 mm[Hg] 04/25/2023 16:41:00 [facility] [place] Diastolic Blood Pressure 85 mm[Hg] 04/25/2023 16:41:00 [facility] [place] BP Site Right arm 04/25/2023 16:41:00 [facility] [place] Peripheral Pulse Rate 90 bpm 04/25/2023 16:41:00 [facility] [place] Respiratory Rate 16 br/min 04/25/2023 16:41:00 [facility] [place] Encounters Combined list of: 1) Encounters from Department of Veterans Affairs facilities going backup to the last 18 months, not all VA inpatient encounters are included; 2) Encounters from the Department of Defense facilities going backup to 280 months. Location Location Details Encounter Type Encounter Number Reason For Visit Attending Provider ADM Date DC Date Status Disposition Source [facility](Au diology [facility] 1523) OUTPATIENT [id number] SOL BAHENA 08/22 Released w/o Limitations [facility]( Audiolo gy [facility] 1523) [facility](Op tometry [facility] 1523) OUTPATIENT [id number] NEDRA BELTRAN 08/22 Released w/o Limitations [facility]( Optomet ry [facility] 1523) [facility] Male) OUTPATIENT [id number] Notes Entered by: RUDDY ALMARAZ 23 Aug 2016 1305 ------- ------- ------- ------- -- P-4 Male HUMBERTO Sanchez 08/23 Released w/o Limitations [facility]( [facility] Male) [facility](Im munizatio n 1523) OUTPATIENT [id number] Notes Entered by: WILL INGRAM 23 Aug 2016 1653 ------- ------- ------- ------- -- P4 Immuniz ations ELLIE MISHRA 08/23 Released w/o Limitations [facility]( Immuniz ation 1523) [facility](Pr ev Med Immunizat ions/237) OUTPATIENT [id number] Notes Entered by: ZACHARIAH SALTER 29 Aug 2016 1406 ------- ------- ------- ------- -- TST PPD TB Testing JENNIFER ARDON 08/29 Released w/o Limitations [facility]( Prev Med Immuniz ations/ 237) [facility](Ho nor (Red) 1007) OUTPATIENT [id number] Notes Entered by: СЕРГЕЙ ROBERTS 26 Sep 2016 1102 ------- ------- ------- ------- -- celsoati VERNON Lund 09/26 Released w/o Limitations [facility]( [place] (Red) 1007) [facility](Emergen Medicine NM[facility]) OUTPATIENT [id number] EDEN ASHFORD 01/18 Released w/o Limitations [facility](Mercedes rgency Medicin e NMCP) Theater Facility OUTPATIENT [id number] Theater Provider 05/10 Released w/o Limitations Theater Facilit y [facility] OUT[facility] [id number] Notes Entered by: JANNETH EVANS 09 Oct 2017 1451 ------- ------- ------- ------- -- Annual JAC EVANS 10/09 Released w/o Limitations [facility](Hea ring Cons [place]) Theater Facility OUTPATIENT [id number] Theater Provider 11/07 Released w/o Limitations Theater Facilit y [facility](Emergen cy Medicine NMCP) OUTPATIENT [id number] CANDICE ESCALANTE 11/20 Released w/o Limitations [facility](Mercedes rgency Medicin e NMCP) [facility](Acute Care Ortho NM[facility]) OUTPATIENT [id number] Notes Entered by: KESHAV WEAVER 20 Nov 2018 0415 ------- ------- ------- ------- -- right small finger fractur e WAQAR ROBLEDO H 11/20 Released with Work/Duty Limitations [facility](Acu te Care Ortho NM[facility]) [facility](Hand Surg [facility]) OUTPATIENT [id number] tracker right small finger fx MIRIAM KIM 11/28 Released with Work/Duty Limitations [facility](Fung d Surg [facility]) [facility](Hand Surg [facility]) OUTPATIENT [id number] 1 f/u visit on rt.SF MIRIAM KIM 12/19 Released with Work/Duty Limitations [facility](Fung d Surg [facility]) [facility](Occupat ional Therapy Hand Clinic [facility]) OUTPATIENT [id number] MARY Garcia 12/19 Released w/o Limitations [facility](Occ upation al Therapy Hand Clinic [facility]) [facility](Hearing Cons Anthony Sta) OUTPATIENT [id number] BRITTNI SALDANA 12/20 Released w/o Limitations [facility](Hea ring Cons Anthony Sta) [facility](Optomet ry [employer] [place]) OUTPATIENT [id number] EYE EXAM KESHAV CAI 01/09 Released w/o Limitations [facility](Opt ometry [place]) [facility](Hand Surg [facility]) OUTPATIENT [id number] f/u right SF KIM MIRIAM Janny Ortiz 02/27 Released w/o Limitations [facility](Fung d Surg [facility]) [facility](P NavSta T2) OUTPATIENT [id number] LUIS Dneise 05/28 Released w/o Limitations [facility](P NavSta T2) [facility](Hearing Cons Anthony Sta) OUTPATIENT [id number] BRITTNI SALDANA 01/06 Released w/o Limitations [facility](Hea ring Cons Anthony Sta) [facility](Hearing Cons [place] Sta) OUTPATIENT [id number] JESUS SINGH 01/07 Released w/o Limitations [facility](Hea ring Cons Anthony Sta) [facility](Emergen cy Medicine [facility]) OUTPATIENT [id number] LEE ANN MALONE 03/31 Released w/o Limitations [facility](Mercedes rgency Medicin e NMCP) Theater Facility OUTPATIENT [id number] Theater Provider 04/14 Released with Work/Duty Limitations Theater Facilit y [facility] (Immuniz ations [facility]) OUTPATIENT [id number] Notes Entered by: MADELYN HUYNH 24 Sep 2020 0951 ------- ------- ------- ------- -- LINCOLN ANSARI 09/24 Released w/o Limitations [facility] ) Theater Facility OUTPATIENT [id number] Theater Provider 12/21 Released w/o Limitations Theater Facilit y [facility](Derm atology - [facility]) OUTPATIENT [id number] UMER Moralez 01/11 Released w/o Limitations [facility](De rmatolo gy - [facility]) [facility](Fami ly Medicine ([facility])) TELE CONSULT [id number] Notes Entered by: ALONZO CARBONE RMEN 26 Jan 2021 1048 ------- ------- ------- ------- -- PT REQUEST A PRESCRI JELENA MIDDLETON 01/26 Other Not Elsewhere Classified [facility](Fa suad Medicin e ([facility])) [facility](Emergen Medicine [facility]) OUTPATIENT [id number] NEGRO BEDOYA 06/20 Released w/o Limitations [facility](Mercedes rgency Medicin e [facility]) [facility]( Med Readiness Center) OUTPATIENT [id number] PHA-NON STUDENT MIRIAM BECKER 01/19 Released w/o Limitations [facility]( Med Readine ss Center) 003-[facility] Dental [id number] ARMIDA PALOMO 11/27 Discharge Disposition: Home or Self Care [facility] 003-[facility] [id number] Encount er for examina tion and observa tion for other specifi ed reasons ,Other specifi ed careers counsellor rodo MONTEMAYOR 12/02 Discharge Disposition: Home or Self Care [facility] [address] [place] [address] [id number] Encount er for other specifi ed special examina tions YUE LOOMIS 12/02 Discharge Disposition: Home or Self Care [facility] [address] [place] [address] Between Visit [id number] 12/02 Discharge Disposition: Home or Self Care [facility] Procedures Combined list of: 1) Procedures from Department of Veterans Affairs facilities going back up to thelast 18 months, not all VA non-surgical procedures are included; 2) All procedures from the Department of Defense facilities. Procedure Procedure Type Code Date Perfomer Comments Sourc e TELE ASSESS & MGT SRV PROV QUAL NONPHYS HLTH CARE PRO TO EST PAT,PARENT,GUARD NOT ORIG REL ASSESS & MGT SRV PROV W/IN PREV 7 DAYS NOR LEAD ASSESS & MGT SRV/PX W/IN NXT 24 HR/SOON APT;5-10 MIN MED DIS 01/26/2021 DoD DESTRUCTION (EG, LASER SURGERY, ELECTROSURGERY, CRYOSURGERY, CHEMOSURGERY, SURGICAL CURETTEMENT), OF BENIGN LESIONS OTHER THAN SKIN TAGS OR CUTANEOUS VASCULAR PROLIFERATIVE LESIONS; UP TO 14 LESIONS 01/11/2021 [facility] PSYCHIATRIC DIAGNOSTIC EVALUATION 11/12/2020 [facility] POLIOVIRUS VACCINE, INACTIVATED (IPV), FOR SUBCUTANEOUS OR INTRAMUSCULAR USE 09/26/2016 [facility] SKIN TEST; TUBERCULOSIS, INTRADERMAL 08/29/2016 [facility] IMMUNIZATION ADMINISTRATION (INCLUDES PERCUTANEOUS, INTRADERMAL, SUBCUTANEOUS, OR INTRAMUSCULAR INJECTIONS); EACH ADDITIONAL VACCINE (SINGLE OR COMBINATION VACCINE/TOXOID) 08/23/2016 [facility] PATIENT EDUCATION, NOT OTHERWISE CLASSIFIED, NON-PHYSICIAN PROVIDER, GROUP, PER SESSION 08/23/2016 [facility] VIS FUNCT SCREEN,AUTOMAT/SEMI-A UTOMAT BILAT QUANT DETERM VISUAL ACUITY,OCULAR ALIGN,COLOR VISION,PSEUDOISOCHROM AT PLATES,& FIELD VIS (MAY INC ALL/SOME SCRN DETERM FOR CONTRAST SENSITIV,VIS UND GLARE) 08/22/2016 [facility] AUDIOMETRIC TESTING OF GROUPS 08/22/2016 [facility] KNEE ORTHOSIS, IMMOBILIZER, CANVAS LONGITUDINAL, PREFABRICATED, [id number] 06/19/2021 DoD IMMUNIZATION ADM,INTRAMUSCULAR INJECTION OF SEVERE AC RESPIRATORY SYNDROME CORONAVIR 2 (SARSCOV-2) (CORONAVIR DIS [COVID-19]) VACCINE,MRNALNP,SPIKE PROT,PRESERVATIVE FREE,100 MCG/0.5ML DOSAG;1ST DOSE 09/24/2020 [facility] INJECTION, KETOROLAC TROMETHAMINE, PER 15 MG 03/31/2020 DoD PATIENT EDUCATION, NOT OTHERWISE CLASSIFIED, NON-PHYSICIAN PROVIDER, INDIVIDUAL, PER SESSION 01/08/2020 DoD PATIENT EDUCATION, NOT OTHERWISE CLASSIFIED, NON-PHYSICIAN PROVIDER, INDIVIDUAL, PER SESSION 01/07/2020 [facility] DETERMINATION OF REFRACTIVE STATE 01/09/2019 DoD PATIENT EDUCATION, NOT OTHERWISE CLASSIFIED, NON-PHYSICIAN PROVIDER, INDIVIDUAL, PER SESSION 12/20/2018 [facility] FINGER ORTHOSIS, WITHOUT JOINTS, MAY INCLUDE SOFT INTERFACE, CUSTOM FABRICATED INCLUDES FITTING AND ADJUSTMENT 12/19/2018 [facility] UNLISTED FLUOROSCOPIC PROCEDURE (EG, DIAGNOSTIC, INTERVENTIONAL) 11/28/2018 [facility] APPLICATION OF SHORT ARM SPLINT (FOREARM TO HAND); STATIC 11/20/2018 [facility] PRESCRIPTION DRUG, ORAL, NONCHEMOTHERAPEUTIC, NOT OTHERWISE SPECIFIED 11/19/2018 [facility] PATIENT EDUCATION, NOT OTHERWISE CLASSIFIED, NON-PHYSICIAN PROVIDER, INDIVIDUAL, PER SESSION 10/09/2017 [facility] Repair, primary, open or percutaneous, ruptured Achilles tendon; Repair, primary, open or percutaneous, ruptured Achilles tendon; [address] 01/30/2023 003-[facility] [place] Extraction, erupted tooth or exposed root (elevation and/or forceps removal) 08/06/2016 003-[facility] [place] Social History Combined list of available smoking, tobacco, and other social history from Department of Defense and Veterans Affairs facilities. Social History Type Response Date Comment [facility] e Sex Representation Male (finding) 06/26/2022 Un known Organization This section is an empty social history section. [facility] Sexual Orientation [facility] Gender identity [...] of the hearing test was uploaded into [employer]. Other specified counseling Hearing conservation counseling?for?INDIVIDUAL?patient included: [...] Counseling Time: 16 minutes ? Ailyn Reid, Privacy Specialist ? Service Developer ? [facility], ? [place], [place] ? ? ? Extracted from:Title: LIMDU: LEFT ACHILLES RUPTURE S/P REPAIR Author: LUIS SKY NP Date: 06/26/23 1.?Rupture of left Achilles tendon 27 y/o ADM to clinic for LIMDU f/u. Pt. is engaged in care with a civilian PCM but requires this visit for administrative purposes. ? Clinical History: -[id number] Left Achilles rupture while running on treadmill and felt a pop. -[id number] Left Achilles repair -Engaged with [facility] and physical therapy twice weekly?post-operatively and progressing as expected. Pt. currently out of walking boot and back in regular uniform with working boots. ? ? -LIMDU initiated today [id number] -Monthly LIMDU f/u virtually due to distance. -Pt. v/u and concurs. ? 20-29 (20529)?minutes total time spent on evaluation and management.Standby was offered to the patient and documented in note if accepted.??Medications reconciled.??Care plan developed with the?patientand agreed upon.??Pt?verbalizes understanding of plan.???There were no obvious barriers to learning.? ? Luis Sky, KEHINDE, BALE SEWER, NEONATOLOGIST-C , MD, [facility] [facility] ? Extracted from:Title: LIMDU: S/P LEFT ACHILLES RUPTURE REPAIR Author: LUIS SKY NP Date: 05/16/23 1.?Rupture of left Achilles tendon 27 y/o ADM to clinic for LIMDU f/u. Pt. is engaged in care with a civilian PCM but requires this visit for administrative purposes. ? Clinical History: -[id number] Left Achilles rupture while running on treadmill and felt a pop. -[id number] Left Achilles repair -Engaged with [facility] and physical therapy post-operatively and progressing as expected. Pt. currently out of walking boot. ? ? -LIMDU initiated today [id number] -Monthly LIMDU f/u virtually due to distance. -Pt. v/u and concurs. ? 20- (57648)?minutes total time spent on evaluation and management.Standby was offered to the patient and documented in note if accepted.??Medications reconciled.??Care plan developed with the?patientand agreed upon.??Pt?verbalizes understanding of plan.???There were no obvious barriers to learning.? ? Luis Sky DNP, BALE SEWER, NEONATOLOGIST-C LT, MD, N [facility] ? Extracted from:Title: LIMDU: L ACHILLES RUPTURE Author: LUIS SKY NP Date: 04/25/23 1.?Rupture of left Achilles tendon 27 y/o ADM to clinic for placement on LIMDU. Pt. is engaged in care with a civilian PCM but requires this visit for administrative purposes. ? Clinical History: -[id number] Left Achilles rupture while running on treadmill and felt a pop. -40CTQ30 Left Achilles repair -Engaged with [facility] and physical therapy post-operatively and progressing as expected. ? ? -LIMDU initiated today ; directed to Medical Boards -Monthly LIMDU f/u virtually due to distance. -Pt. v/u and concurs. ? 30-39 (78179)?minutes total time spent on evaluation and management.Standby was offered to the patient and documented in note if accepted.??Medications reconciled.??Care plan developed with the?patientand agreed upon.??Pt?verbalizes understanding of plan.???There were no obvious barriers to learning.? ? Luis Sky DNP, BALE SEWER, NEONATOLOGIST-C LT, MD, N [facility] ? Future Scheduled TestsLaboratoryHIV-1/2 AG/AB 4G CDD 12/02/24 12/24/[address] [place] [address] Assessment and Plan Extracted from:Title : Eye [...] of the hearing test was uploaded into [employer]. Other specified counseling Hearing conservation counseling?for?INDIVIDUAL?patient included: [...] Counseling Time: 16 minutes ? Ailyn Reid, Privacy Specialist ? Service Developer ? [facility], ? [place], [place] ? ? ? Extracted from:Title: LIMDU: LEFT ACHILLES RUPTURE S/P REPAIR Author: LUIS SKY NP Date: 06/26/23 1.?Rupture of left Achilles tendon 27 y/o ADM to clinic for LIMDU f/u. Pt. is engaged in care with a civilian PCM but requires this visit for administrative purposes. ? Clinical History: -[id number] Left Achilles rupture while running on treadmill and felt a pop. -91YPS36 Left Achilles repair -Engaged with [facility] and physical therapy twice weekly?post-operatively and progressing as expected. Pt. currently out of walking boot and back in regular uniform with working boots. ? ? -LIMDU initiated today [id number] -Monthly LIMDU f/u virtually due to distance. -Pt. v/u and concurs. ? 20-29 (85766)?minutes total time spent on evaluation and management.Standby was offered to the patient and documented in note if accepted.??Medications reconciled.??Care plan developed with the?patientand agreed upon.??Pt?verbalizes understanding of plan.???There were no obvious barriers to learning.? ? Luis Sky DNP, BALE SEWER, NEONATOLOGIST-C , MD, N [facility] ? Extracted from:Title: LIMDU: S/P LEFT ACHILLES RUPTURE REPAIR Author: LUIS SKY NP Date: 05/16/23 1.?Rupture of left Achilles tendon 27 y/o ADM to clinic for LIMDU f/u. Pt. is engaged in care with a civilian PCM but requires this visit for administrative purposes. ? Clinical History: -[id number] Left Achilles rupture while running on treadmill and felt a pop. -94PSV02 Left Achilles repair -Engaged with [facility] and physical therapy post-operatively and progressing as expected. Pt. currently out of walking boot. ? ? -LIMDU initiated today [id number] -Monthly LIMDU f/u virtually due to distance. -Pt. v/u and concurs. ? 20-29 (03996)?minutes total time spent on evaluation and management.Standby was offered to the patient and documented in note if accepted.??Medications reconciled.??Care plan developed with the?patientand agreed upon.??Pt?verbalizes understanding of plan.???There were no obvious barriers to learning.? ? Luis Sky DNP, BALE SEWER, NEONATOLOGIST-C , MD, N [facility] ? Extracted from:Title: LIMDU: L ACHILLES RUPTURE Author: LUIS SKY NP Date: 04/25/23 1.?Rupture of left Achilles tendon 27 y/o ADM to clinic for placement on LIMDU. Pt. is engaged in care with a civilian PCM but requires this visit for administrative purposes. ? Clinical History: -32BLM26 Left Achilles rupture while running on treadmill and felt a pop. -[id number] Left Achilles repair -Engaged with [facility] and physical therapy post-operatively and progressing as expected. ? ? -LIMDU initiated today [id number]; directed to Medical Boards -Monthly LIMDU f/u virtually due to distance. -Pt. v/u and concurs. ? 30-39 (28915)?minutes total time spent on evaluation and management.Standby was offered to the patient and documented in note if accepted.??Medications reconciled.??Care plan developed with the?patientand agreed upon.??Pt?verbalizes understanding of plan.???There were no obvious barriers to learning.? ? Luis Sky, DNP, BALE SEWER, NEONATOLOGIST-C LT, [place], [facility] ? Future Scheduled TestsLaboratoryHIV-1/2 AG/AB 4G CDD 12/02/24 12/24/2024 Unknown Organization Functional Status Combined list of recent functional and cognitive assessments recorded at [facility] [employer] [facility] Functional [place] Measurement (FIM) Scale: 1 = Total Assistance (Subject = 0% +), 2 = Maximal Assistance (Subject = 25% +), 3 = Moderate Assistance (Subject = 50% +), 4 = Minimal Assistance (Subject = 75% +), 5 = Supervision, 6 = Modified [place] (Device), 7 = Complete [place] (Timely, Safely). Assessment Date/Time Source Assessment Type Assessment Skill Assessment Score Assessment Details No data available for this section
--- OUTSIDE RECORDS SUMMARY | 2024-12-24 10:14 | XMS_ITS | Encounter Summary ---
Author Organization [facility] Address [address] [place] [address] Care Team Providers Care Cte Teacher Name Role Phone Tess Campoverde APRN Primary Care Provider Un available Encounter Details Date Type Department Care Team (Late st Contact Info) Description 10/13/2022 Scanned Document [facility] Department of Internal Medicine [place] [address] [place] [phone] Tess Campoverde APRN *need valid address Social [...] on filedocumented in this encounter Care Teams Cte Teacher Relationship Specialty Start Date End Date Tess Campoverde APRN PCP - General documented as of this encounter
--- OUTSIDE RECORDS SUMMARY | 2024-12-24 10:14 | XMS_ITS | Clinical Summary ---
Author Organization [facility] Address [address] [place] [address] Care Team Providers Care Operations Officer Name Role Phone Tess Campoverde APRN Primary Care Provider [phone] Medications Medication Sig Dispensed Refills Start Date [...] age to complete this topic Care Teams Operations Officer Relationship Specialty Start Date End Date Tess Campoverde APRN PCP - General Nurse Practitioner 04/11/22
[2024-12-24 11:12] LABS: MANUAL DIFF FLAG NO
[2024-12-24 11:16] LABS: Basophils Percent Auto 0.2 % (0-2); Eosinophils Absolute Auto 0.1 X10*3/uL (0.0-0.4); Eosinophils Percent Auto 2.2 % (0-4); Hemoglobin 13.1 g/dl (14.0-18.0); Imm Gran Abs Auto 0.01 X10*3/uL (0.00-0.03); Imm Gran Pct Auto 0.2 % (0.0-0.4); Lymphocytes Absolute Auto 1.5 X10*3/uL (1.2-4.9); Lymphocytes Percent Auto 37.7 % (20-40); Mean Corpuscular Hemoglobin 25.1 pg (27.0-33.0); Mean Corpuscular Volume 78.7 fL (80.0-98.0); Mean Platelet Volume 10.1 fL (9.4-12.4); Monocytes Absolute Auto 0.3 X10*3/uL (0.1-1.2); Monocytes Percent Auto 6.7 % (2-11); Neutrophils Absolute Auto 2.1 x10*3/uL (2.0-8.3); Platelet Count 265 X10*3/uL (160-400); Red Blood Count 5.21 X10*6/uL (4.60-5.80); Red Cell Distribution Width 13.7 % (11.0-16.0)
[2024-12-24 11:42] LABS: Estimated Average Glucose 123 mg/dL; Hemoglobin A1C 143.5729 umol/L; Hemoglobin A1c % 5.9 % (<6.0); Total Hemoglobin (HGBA1C) 3464.0196 umol/L
[2024-12-24 11:57] LABS: Iron 70 mcg/dL (45-160); Percent Iron Saturation 22 % (15-50); Total Iron Binding Capacity 314 mcg/dL (228-428); Unsaturated Iron Binding 244 ug/dL
[2024-12-24 12:22] LABS: Folate 10.1 ng/mL (> or = 4.0); Vitamin B12 416 pg/mL (200-900)
[2024-12-24 13:09] LABS: Insulin 10 uU/mL (2-29)
[2024-12-24 13:54] LABS: Ferritin 133 ng/mL (20-250)
[2024-12-25 04:34] LABS: C Peptide 2.41 ng/mL (0.80-3.85)
== END 2024-12-24 08:57 | disposition home or self-care (01) ==
LOC: HO.WFDLDS 08:56
PROVIDERS: Visit Provider Physician Assistant
DX: M25.531 Pain in right wrist (principal); M25.532 Pain in left wrist; R73.03 Prediabetes; D64.9 Anemia, unspecified; R19.8 Other specified symptoms and signs involving the digestive system and abdomen; Z00.00 Encounter for general adult medical examination without abnormal findings; G47.30 Sleep apnea, unspecified
CPT/HCPCS: 36415; 82607; 82728; 82746; 83036; 83525; 83540; 84681; 85025; 96127; 99212

== ENCOUNTER 2024-12-31 09:52 | Outpatient (AMB) | payer OTHER, SELFPAY ==
--- NOTE | 2024-12-31 09:55 | MHC.OFFVIS ---
Vital Signs 12/31/24 10:01 Height 5 ft 7.9 in Weight 220 lb BMI 33.5 BP 112/76 Blood Pressure Location Lt brachial Position Sitting Pulse 76 Pulse Oximetry (%) 99 Oxygen Delivery Method Room Air Intake Visit Reasons: Hemorrhage of anus & rectum Intake Note: Patient new consult for Hemorrhage of anus & rectum Patient cc: nauseas come and go, abdominal pain with bloating, between diarrhea and constipation with some bloody stool on and off, denies any other GI issues. 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 He is referred by June Roman. PMX SEBASTIAN Diabetes - uncertain dx Migraines IBS-M Family history of colon cancer in mother Depression with anxiety * SURGICAL HISTORY Achilles tendon repair * ALLERGIES: NKDA * [employer] LABS: Laboratory Tests 12/18/24 12/24/24 12:46 08:58 WBC 4.0 L Hgb 13.1 L Hct 41.0 L MCV 78.7 L MCH 25.1 L Plt Count 265 Estimated GFR > 60 Total Bilirubin 0.4 AST 31 ALT 39 Alkaline Phosphatase 68 TSH 1.43 TODAY'S VISIT He has occasional rectal bleeding, he has had stomach problems since being in the . He has intermittent diarrhea and the bleeding was happening during this phase. The diarrhea is really set off by beef and fatty foods. His mother was diagnosed with CRC at age 46 and is just completing chemo. He will occasionally not move his bowels, but when he does it may well be diarrheal as well. No know FHX of similar diarrheal syndromes or food allergies. He does have some manifestation with his anxiety if I'm worked up. No alarm sg/sx. While most likely this is hemorrhoidal bleeding given his family history of relatively early colon cancer I think a colonoscopy is prudent. However I think we need to do a little bit of a workup around his diarrhea to find out if there are any other reversible pathology such as food allergies or IBD. He is agreeable to additional blood work. In the meantime I will give him a trial of dicyclomine to see if this helps give him more comfort and better functionality since his stomach problems frequently make his days harder, even though he pushes through them so as not to miss work. Return office visit next available REPLACED BY [facility] Medical History (Updated 12/31/24 @ 13:24 by KRISTI Terry) Finger pain, right Bilateral wrist pain Family history of type 1 diabetes mellitus Frequent headaches Rash Laboratory exam ordered as part of routine general medical examination Sleep apnea Back pain Migraines Achilles tendon tear Anxiety Depression Surgical History H/O Achilles tendon repair Family History Mother Arthritis Father Diabetes Social History Household Members: Family Housing: House Alcohol intake: current Patient Tobacco Use Status: Never used Tobacco e-Cigarette/Vaping Use: Never Used Special hari needs: Yes service: Yes Current occupational status: employed 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, 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 Cognitive needs: No Hearing needs: No Vision needs: No Review of Systems Const Denies fatigue, Denies fever(s), Denies night sweats, Denies poor appetite and Denies weight loss ENT Reports Normal hearing present, Denies dental pain, Denies dysphagia, Denies hearing loss, Denies mouth pain, Denies odynophagia, Denies throat swelling, Denies tongue swelling and Reports other (Dentition adequate) Card Reports no additional complaints Resp Reports no additional complaints GI Details: Reports abdominal pain, Denies melena, Reports bloating, Denies hematochezia, Reports constipation, Reports GI cramping, Denies dysphagia, Denies excessive flatus, Denies early satiety, Denies heartburn, Denies diarrhea, Reports loose stools, Reports nausea, Denies odynophagia, Denies vomiting and Denies hematemesis Skin/Breast Denies pruritus, Denies lesions, Denies rash and Denies jaundice Neuro Reports Normal hearing present and Denies Abnormal speech present Psych Reports anxiety Endo Denies fatigue Aller/Immun Denies throat swelling and Denies tongue swelling Physical Exam Vital Signs: Last Vital Signs Pulse 76 12/31/24 10:01 BP 112/76 12/31/24 10:01 Pulse Ox 99 12/31/24 10:01 Oxygen Delivery Method Room Air 12/31/24 10:01 BMI result Body Mass Index 33.5 Const General: cooperative, no acute distress, well developed and well groomed Nutritional Appearance: well nourished and overweight Orientation/consciousness: oriented to person, oriented to place and oriented to time Limitations: No language barrier HEENT Head: Yes normocephalic and Yes atraumatic Eyes General: appearance normal, both eyes and all related structures Pupils: Equal, round and reactive pupils present Neck Neck: Yes normal visual inspection and Yes no lymphadenopathy Thyroid: Thyroid normal Resp Effort & Inspection: normal respiratory effort and able to speak in complete sentences Auscultation: clear to auscultation bilaterally Cardio Rate: regular rate Rhythm: regular rhythm Heart sounds: Normal, physiologic split S2 sound present Peripheral pulses: radial pulses present and posterior tibial pulses present GI Inspection: No distended and No Abdominal panniculus present Palpation (GI): Soft to palpation, nontender, no guarding, not rigid and No hepatosplenomegaly present Percussion: Yes normal to percussion Auscultation: normal bowel sounds Rectal Exam - Male: Yes deferred Skin General skin exam: no rashes or lesions noted, turgor normal, skin not dry, no jaundice, No spider nevi and no striae Rashes: no rashes Nails: normal Neuro General: oriented to person, oriented to place and oriented to time Cranial nerves: Yes Equal, round and reactive pupils present and Yes Normal hearing present Speech: No Abnormal speech present Extrem General: Yes normal to inspection, No clubbing, No cyanosis and No edema Psych Appearance: grossly normal and well kempt Mental Status: mental status grossly normal Speech and movement: Normal speech and movement present Affect: normal affect Attitude: cooperative Thought process: Normal thought process present and not confabulating Thought content: Normal thought content present Insight: Good insight present (Psych) Judgement: Good judgement present (Psych) Assessment & Plan Assessment & Plan (1) Blood per rectum: Code(s): K62.5 - Hemorrhage of anus and rectum Category: Medical (2) Anemia: Code(s): D64.9 - Anemia, unspecified Category: Medical (3) Family history of colon cancer in mother: Comment: At age 45 she is just completing chemotherapy Code(s): Z80.0 - Family history of malignant neoplasm of digestive organs Category: Medical (4) Pre-op examination: Code(s): Z01.818 - Encounter for other preprocedural examination Category: Medical (5) Sleep apnea: Comment: Mild degree of sleep apnea. AHI was 8/hr and oxygen ely was 85% Code(s): G47.30 - Sleep apnea, unspecified Category: Medical (6) Upper abdominal pain: Code(s): R10.10 - Upper abdominal pain, unspecified Category: Medical (7) Diarrhea: Code(s): R19.7 - Diarrhea, unspecified Category: Medical Plan He has occasional rectal bleeding, he has had stomach problems since being in the . He has intermittent diarrhea and the bleeding was happening during this phase. The diarrhea is really set off by beef and fatty foods. His mother was diagnosed with CRC at age 46 and is just completing chemo. He will occasionally not move his bowels, but when he does it may well be diarrheal as well. No know FHX of similar diarrheal syndromes or food allergies. He does have some manifestation with his anxiety if I'm worked up. No alarm sg/sx. While most likely this is hemorrhoidal bleeding given his family history of relatively early colon cancer I think a colonoscopy is prudent. However I think we need to do a little bit of a workup around his diarrhea to find out if there are any other reversible pathology such as food allergies or IBD. He is agreeable to additional blood work. In the meantime I will give him a trial of dicyclomine to see if this helps give him more comfort and better functionality since his stomach problems frequently make his days harder, even though he pushes through them so as not to miss work. Return office visit next available Orders: Orders Colonoscopy - GI Use Only Today K62.5 - Hemorrhage of anus and rectum, Z01.818 - Encounter for other preprocedural examination Transglutaminase IgA Today R10.10 - Upper abdominal pain, unspecified Transglutaminase Ab IgG Today R10.10 - Upper abdominal pain, unspecified Rast Allergen Today R10.10 - Upper abdominal pain, unspecified US abdomen complete Today R10.10 - Upper abdominal pain, unspecified C Reactive Protein Today R10.10 - Upper abdominal pain, unspecified H Pylori Breath Test Today R10.10 - Upper abdominal pain, unspecified Medications: New bisacodyl (Dulcolax (bisacodyl)) 10 mg (2 x 5 mg) PO BEDTIME 4 tabs 0RF 2 days peg 3350-electrolytes 236-22.74-6.74 -5.86 gram (Golytely) until fecal effluent is clear; do not exceed a total volume of 2,000 mL 240 mL PO Q10M 4,000 mL 0RF 1 day Z12.11 - Encounter for screening for malignant neoplasm of colon dicyclomine 20 mg PO QID 120 tabs 6RF 30 days R19.7 - Diarrhea, unspecified Coding Level of Care Code New Pt Level 3 (12501) Diagnoses Blood per rectum K62.5 Anemia D64.9 Family history of colon cancer in mother Z80.0 Pre-op examination Z01.818 Sleep apnea G47.30 Upper abdominal pain R10.10 Diarrhea R19.7
[2024-12-31 10:01] VITALS: BP 112/76; PULSE 76; O2SAT 99; BMI 33.5
== END 2024-12-31 11:19 | disposition home or self-care (01) ==
LOC: HO.HGI 09:53
PROVIDERS: Visit Provider Nurse Practitioner
DX: K62.5 Hemorrhage of anus and rectum (principal); R19.7 Diarrhea, unspecified; G47.30 Sleep apnea, unspecified; R10.10 Upper abdominal pain, unspecified; D64.9 Anemia, unspecified; Z80.0 Family history of malignant neoplasm of digestive organs
CPT/HCPCS: 99203

== ENCOUNTER → 2024-12-31 09:52 | Outpatient (BNVA) | payer OTHER, SELFPAY | PROVIDERS: Visit Provider Nurse Practitioner | DX: Z01.818 Encounter for other preprocedural examination (principal); K62.5 Hemorrhage of anus and rectum; G47.30 Sleep apnea, unspecified; D64.9 Anemia, unspecified; R10.10 Upper abdominal pain, unspecified; R19.7 Diarrhea, unspecified; Z80.0 Family history of malignant neoplasm of digestive organs | CPT/HCPCS: 99202 ==

== ENCOUNTER 2025-01-01 16:27 | Outpatient (REF) | payer OTHER, SELFPAY ==
[2025-01-04 12:43] LABS: H Pylori Breath Test Negative (Negative)
== END 2025-01-01 16:28 | disposition home or self-care (01) ==
LOC: HO.LNP 16:27
PROVIDERS: Visit Provider Nurse Practitioner
DX: R10.10 Upper abdominal pain, unspecified (principal)
CPT/HCPCS: 83013

== ENCOUNTER 2025-01-02 09:02 | Outpatient (REF) | payer OTHER, SELFPAY ==
[2025-01-02 10:44] LABS: C Reactive Protein 0.97 mg/dL (< or = 0.50)
[2025-01-05 22:49] LABS: Class Almond 0; Class Brazil Nut 0; Class Cashew 0; Class Codfish 0; Class Cow's Milk 0; Class Egg white 0; Class Hazelnut 0; Class Macadamia Nut 0; Class Peanut 0; Class Salmon 0; Class Scallop 0; Class Sesame Seed 0; Class Shrimp 0; Class Soybean 0; Class Tuna 0; Class Walnut 0; Class Wheat 0; F001-IgE Egg White <0.10 kU/L; F002-IgE Milk <0.10 kU/L; F003-IgE Codfish <0.10 kU/L; F004-IgE Wheat <0.10 kU/L; F010-IgE Sesame Seed <0.10 kU/L; F013-IgE Peanut <0.10 kU/L; F014-IgE Soybean <0.10 kU/L; F017-IgE Hazelnut (Filbert) <0.10 kU/L; F018-IgE Brazil Nut <0.10 kU/L; F020-IgE Almond <0.10 kU/L; F024-IgE Shrimp <0.10 kU/L; F040-IgE Tuna <0.10 kU/L; F041 IgE Salmon <0.10 kU/L; F202-IgE Cashew Nut <0.10 kU/L; F256-IgE Walnut <0.10 kU/L; F338-IgE Scallop <0.10 kU/L; F345-IgE Macadmia Nut <0.10 kU/L
[2025-01-05 23:09] LABS: Transglutaminase Ab IgG <1.0 U/mL; Transglutaminase IgA <1.0 U/mL
== END 2025-01-02 09:03 | disposition home or self-care (01) ==
LOC: HO.LAB 09:02
PROVIDERS: PCP Physician Assistant; Visit Provider Nurse Practitioner
DX: R10.10 Upper abdominal pain, unspecified (principal); R19.7 Diarrhea, unspecified
CPT/HCPCS: 36415; 86003; 86140; 86364

== ENCOUNTER 2025-02-19 08:40 | Outpatient (AMB) | payer OTHER, SELFPAY ==
--- OUTSIDE RECORDS SUMMARY | 2025-02-19 08:47 | XMS_ITS | Continuity of Care Document ---
Author Name [facility] Organization [facility] Care Team Providers Care [place]keshoe Repairer Name Role Phone [facility] Unavailable Unavailable Problems Combined list of problems from Department of Defense and Veterans Affairs facilities. It does not include entries that were removed or entered in error. Problem Status Onset Date Problem Type Date of Resolution Comments Source Encounter for examination and observation for other specified reasons Active 5 Diagnosis [facility] [place] Other specified counseling Active 5 Diagnosis [facility] [place] Encounter for other specified special examinations Active 5 Diagnosis [facility] [place] Pseudofolliculitis barbae Inactive 2 Condition [facility] Pain in left finger(s) Inactive 0 Condition [facility] Nondisplaced fracture of proximal phalanx of right little finger Active 9 Condition [facility] Anthrax Vaccine, For Subcutaneous Use Inactive 8 Condition [facility] visit for: services physical Inactive 7 Condition [facility] Rupture of left Achilles tendon Active Condition [facility] [place] Medications Combined list of outpatient medications from [...] ORAL, ZYDUS PHARMACEU, 100 ea. BOTTLE Active [id number] 2023 90 Pharmac y Data Transac tion Service Facilit y AMITRIPTYLI NE HCL (amitriptyl ine HCl), 25 MG, TABLET, ORAL, ZYDUS PHARMACEU, 1000 ea. BOTTLE Active [id number] 2023 90 Pharmac y Data Transac tion Service Facilit y escitalopra m 20 mg oral tablet 90 EA, 0 Refill(s ), TAKE 1/2 TABLET BY MOUTH EVERY DAY FOR 2 WEEKS THEN INCREASE TO TABLET DAILY, 0 total refill(s ), Soft Stop Ordered 2022 [facility] [place] KETOCONAZOL E (ketoconazo le), 2 %, CREAM (G), TOPICAL, TEVA [place], 60 g TUBE Active [id number] 2023 60 Pharmac y Data Transac tion Service Facilit y meloxicam 15 mg oral tablet 1 tab(s), Oral, Daily, # 30 tab(s), 0 total refill(s ), Maintena nce Oral (given by mouth) Ordered 2022 30.0 [facility] [place] ondansetron 4 mg oral tablet 21 EA, 0 Refill(s ), TAKE 1 TABLET BY MOUTH EVERY 8 HOURS NEEDED FOR NAUSEA, 0 total refill(s ), Soft Stop Discont inued 05/16/20232022 [facility] [place] oxyCODONE 5 mg oral tablet 30 EA, 0 Refill(s ), TAKE 1 TABLET BY MOUTH EVERY 4 TO 6 HOURS NEEDED FOR PAIN SEVERE. DO NOT DRIVE, 0 total refill(s ), Soft Stop Discont inued 05/16/20232022 [facility] [place] SUMATRIPTAN SUCCINATE (sumatripta n succinate), 25 MG, TABLET, ORAL, [employer]., 9 ea. BLIST PACK Active [id number] 2023 10 Pharmac y Data Transac tion Service Facilit y Allergies, Adverse Reactions, Alerts Combined list of allergies from Department of Defense and Veterans Affairs facilities. It does not include entries that were removed or entered in error. Substance Category Reaction Severity Reaction type Status Date Reported Comments Source No Known Allergies Drug allergy (disorder) active 9 [facility] Immunizations Combined list of available immunizations from the Department of Defense and Veterans Affairs facilities. Immunization Series Date Given Administered By Site Reaction Lot Number CVX Code Drug Disease And Insect Control Boss Status Comments Source COVID Vaccine Moderna 2021 [id number] 207 complet ed COVID Vaccine Moderna 01/20/22 Given Ambulat ory Pharmac y COVID-19, mRNA, LNP-S, PF, 100 mcg or 50 mcg dose 2021 RAZO, () Not Given COVID-19, mRNA, LNP-S, PF, 100 mcg or 50 mcg dose DoD influenza, injectable, quadrivalent- pf 2020 [id number] 150 Seqirus complet ed influenza , injectabl e, quadrival ent-pf 05/27/21 Given Ambulat ory Pharmac y influenza, injectable, quadrivalent- pf 2020 [id number] 150 Seqirus complet ed influenza , injectabl e, quadrival ent-pf 05/27/21 Given Ambulat ory Pharmac y Influenza, injectable, quadrivalent, preservative free 0 2020 [id number] 463 150 Seqirus (SEQ) complet ed Influenza , injectabl e, quadrival ent, preservat enma free DoD typhoid Vi capsular polysaccharid e vac 2020 [id number] 101 sanofi pasteur complet ed typhoid Vi capsular polysacch aride vac 12/11/20 Given Ambulat ory Pharmac y yellow fever vaccine 2020 [id number] 37 sanofi pasteur complet ed yellow fever vaccine 12/11/20 Given Ambulat ory Pharmac y meningococcal A,C,Y,W-135 (MCV4P) 2020 [id number] 114 sanofi pasteur complet ed meningoco ccal A,C,Y,W-1 35 (MCV4P) 12/11/20 Given Ambulat ory Pharmac y yellow fever vaccine 2020 [id number] 37 sanofi pasteur complet ed yellow fever vaccine 12/11/20 Given Ambulat ory Pharmac y typhoid Vi capsular polysaccharid e vac 2020 [id number] 101 sanofi pasteur complet ed typhoid Vi capsular polysacch aride vac 12/11/20 Given Ambulat ory Pharmac y meningococcal A,C,Y,W-135 (MCV4P) 2020 [id number] 114 sanofi pasteur complet ed meningoco ccal A,C,Y,W-1 35 (MCV4P) 12/11/20 Given Ambulat ory Pharmac y yellow fever vaccine 0 2020 [id number] 37 Sanofi Pasteur (PMC) complet ed yellow fever vaccine DoD typhoid Vi capsular polysaccharid e vaccine 2 2020 [id number] 101 Sanofi Pasteur ([facility]) complet ed typhoid Vi capsular polysacch aride vaccine DoD meningococcal polysaccharid e (groups A, C, Y and W-135) diphtheria toxoid conjugate vaccine (MCV4P) 0 2020 [id number] 114 Sanofi Pasteur ([facility]) complet ed meningoco ccal polysacch aride (groups A, C, Y and W-135) diphtheri a toxoid conjugate vaccine (MCV4P) DoD COVID Vaccine Moderna 2020 [id number] 207 complet ed COVID Vaccine Moderna 10/24/20 Given Ambulat ory Pharmac y SARS-COV-2 (COVID-19) vaccine, mRNA, spike protein, LNP, preservative free, 100 mcg or 50 mcg dose 2 2020 [id number] 207 Moderna US, Inc. (MOD) complet ed SARS-COV- 2 (COVID-19 ) vaccine, mRNA, spike protein, LNP, preservat enma free, 100 mcg or 50 mcg dose DoD COVID Vaccine Moderna 2020 [id number] 207 complet ed COVID Vaccine Moderna 09/24/20 Given Ambulat ory Pharmac y COVID Vaccine Moderna 2020 Florencia cueva Arm [id number] 207 complet ed COVID Vaccine Moderna 09/24/20 Given Ambulat ory Pharmac y SARS-COV-2 (COVID-19) vaccine, mRNA, spike protein, LNP, preservative free, 100 mcg or 50 mcg dose 1 2020 LINCOLN SEGURA [id number] 207 Moderna US, Inc. (MOD) complet ed SARS-COV- 2 (COVID-19 ) vaccine, mRNA, spike protein, LNP, preservat enma free, 100 mcg or 50 mcg dose DoD influenza, injectable, quadrivalent 2019 [id number] 167 158 Seqirus complet ed influenza , injectabl e, quadrival ent 05/25/20 Given Ambulat ory Pharmac y influenza, injectable, quadrivalent 2019 [id number] 167 158 Seqirus complet ed influenza , injectabl e, quadrival ent 05/25/20 Given Ambulat ory Pharmac y influenza, injectable, quadrivalent, contains preservative 0 10/20/ 2020 [id number] 167 158 Seqirus (SEQ) complet ed influenza , injectabl e, quadrival ent, contains preservat enma DoD typhoid Vi capsular polysaccharid e vac 2018 (C) [id number] 101 sanofi pasteur complet ed typhoid Vi capsular polysacch aride vac 03/24/19 Given Ambulat ory Pharmac y typhoid Vi capsular polysaccharid e vac 2018 C [id number] 101 sanofi pasteur complet ed typhoid Vi capsular polysacch aride vac 03/24/19 Given Ambulat ory Pharmac y typhoid Vi capsular polysaccharid e vaccine 1 2018 C [id number] 101 Sanofi Pasteur (PMC) complet ed typhoid Vi capsular polysacch aride vaccine DoD influenza, injectable, quadrivalent 2017 [id number] 158 GlaxoSmithKli ne complet ed influenza , injectabl e, quadrival ent 07/24/18 Given Ambulat ory Pharmac y influenza, injectable, quadrivalent, contains preservative 0 2017 [id number] 158 SmithKline (SKB) complet ed influenza , injectabl e, quadrival ent, contains preservat enma DoD anthrax vaccine 2017 [id number] 24 Emer[employer] complet ed anthrax vaccine 12/05/17 Given Ambulat ory Pharmac y anthrax vaccine 2017 [id number] 24 [employer] complet ed anthrax vaccine 12/05/17 Given Ambulat ory Pharmac y anthrax vaccine 2 2017 [id number] 24 [employer] Edith (MIP) complet ed anthrax vaccine DoD anthrax vaccine 2017 [id number] 24 [employer] complet ed anthrax vaccine 11/07/17 Given Ambulat ory Pharmac y anthrax vaccine 1 2017 [id number] 24 [employer] Edith (MIP) complet [...] vaccine, adult dosage DoD influenza, injectable, quadrivalent [id number] 158 Seqirus complet ed influenza , injectabl e, quadrival ent 06/01/17 Given Ambulat ory Pharmac y influenza, injectable, quadrivalent 2016 [id number] 158 Seqirus complet ed influenza , injectabl e, quadrival ent 06/01/17 Given Ambulat ory Pharmac y influenza, injectable, quadrivalent, contains preservative 0 2016 [id number] 158 Seqirus (SEQ) comple t ed influenza , injectabl e, quadrival ent, contains preservat enma DoD poliovirus vaccine, inactivated 2016 [id number] 10 sanofi pasteur complet ed polioviru s vaccine, inactivat ed 09/26/16 Given Ambulat ory Pharmac y poliovirus vaccine, inactivated 2016 zzLef t Arm [id number] 10 sanofi pasteur complet ed polioviru s vaccine, inactivat ed 09/26/16 Given Ambulat ory Pharmac y poliovirus vaccine, inactivated 1 2016 NABEEL GOMEZ [id number] 10 Sanofi Pasteur (PMC) complet ed polioviru [...] purified protein derivative 2016 zzLef t Arm [id number] 96 sanofi pasteur complet ed Patient Tolerance : Negative Ambulat ory Pharmac y tuberculin skin test; purified protein derivative solution, intradermal 0 2016 ZACHARIAH SALTER [id number] 96 Sanofi Pasteur (PMC) complet ed tuberculi n skin test; purified protein derivativ e solution, intraderm al DoD influenza, seasonal, injectable-pf 2016 [id number] 140 Seqirus complet ed influenza , seasonal, injectabl e-pf 08/23/16 Given Ambulat ory Pharmac y tetanus, diphtheria, acellular pertu is 2016 [id number] 115 Unknown complet ed tetanus, diphtheri a, acellular pertussis 08/23/16 Given Ambulat ory Pharmac y adenovirus vaccine, live 2016 [id number] 6 143 Unknown complet ed adenoviru s vaccine, live 08/23/16 Given Ambulat ory Pharmac y influenza, seasonal, [facility]able-[id number] 140 Seqirus complet ed influenza , seasonal, injectabl e-pf 08/23/16 Given Ambulat ory Pharmac y meningococcal A,C,Y,W-135 (MCV4P) [facility] [id number] 114 sanofi pasteur complet ed meningoco ccal A,C,Y,W-1 35 (MCV4P) 08/23/16 Given Ambulat ory Pharmac y tetanus, diphtheria, acellular pertu is 2016 Susanne Arm [id number] 115 Unknown complet ed tetanus, diphtheri a, acellular pertussis 08/23/16 Given Ambulat ory Pharmac y adenovirus vaccine, live 2016 [id number] 6 143 Unknown complet ed adenoviru s vaccine, live 08/23/16 Given Ambulat ory Pharmac y meningococcal polysaccharid e (groups A, C, Y and W-135) diphtheria toxoid conjugate vaccine (MCV4P) 1 2016 WILL INGRAM [id number] 114 Sanofi Pasteur (PMC) complet ed meningoco [...] injectable, preservative free 1 2016 WILL INGRAM [id number] 140 Seqirus (SEQ) complet ed Influenza , seasonal, injectabl e, preservat enma free DoD Adenovirus, type 4 and type 7, live, oral 1 2016 KIERA INGRAMMARISSA Ortiz [id number] 143 Other (OTH) complet ed Adenoviru s, type 4 and type 7, live, oral [facility] Vital Signs Combined list of inpatient and outpatient Vital Signs from Department of Defense and Veterans Affairs, ranging from 12 months to all on record, depending upon the facility. Vital Sign Value Date Comments Source Mean Arterial Pressure, Calc 100 mm[Hg] 04/25/2023 16:41:00 [facility] [place] Blood Pressure Manual Automatic 04/25/2023 16:41:00 [facility] [place] Systolic Blood Pressure 131 mm[Hg] 04/25/2023 16:41:00 [facility] [place] Diastolic Blood Pressure 85 mm[Hg] 04/25/2023 16:41:00 [facility] [place] BP Site Right arm 04/25/2023 16:41:00 [facility] [place] Peripheral Pulse Rate 90 bpm 04/25/2023 16:41:00 [facility] [place] Respiratory Rate 16 br/min 04/25/2023 16:41:00 [facility] [place] Encounters Combined list of: 1) Encounters from Department of Veterans Affairs facilities going backup to the last 18 months, not all VA inpatient encounters are included; 2) Encounters from the Department of Defense facilities going backup to 280 months. Location Location Details Encounter Type Encounter Number Reason For Visit Attending Provider ADM Date DC Date Status Disposition Source [facility](Au diology [facility] 1523) OUTPATIENT [id number] SOL BAHENA 08/22 Released w/o Limitations [facility]( Audiolo gy [facility] 1523) [facility](Op tometry [facility] 1523) OUTPATIENT [id number] NEDRA BELTRAN 08/22 Released w/o Limitations [facility]( Optomet ry [facility] 1523) [facility] Male) OUTPATIENT [id number] Notes Entered by: RUDDY ALMARAZ 23 Aug 2016 1305 ------- ------- ------- ------- -- [facility] Released w/o Limitations [facility]( [facility] Male) [facility](Im munizatio n 1523) OUTPATIENT [id number] Notes Entered by: WILL INGRAM 23 Aug 2016 1653 ------- ------- ------- ------- -- P4 Immuniz ations DANICAELLIE 08/23 Released w/o Limitations [facility]( Immuniz ation 1523) [facility](Pr ev Med Immunizat ions/237) OUTPATIENT [id number] Notes Entered by: ZACHARIAH SALTER 29 Aug 2016 1406 ------- ------- ------- ------- -- TST PPD TB Testing JENNIFER ARDON 08/29 Released w/o Limitations [facility]( Prev Med Immuniz ations/ 237) [facility](Ho nor (Red) 1007) OUTPATIENT [id number] Notes Entered by: СЕРГЕЙ ROBERTS 26 Sep 2016 1102 ------- ------- ------- ------- -- VERNON Harmon 09/26 Released w/o Limitations [facility]( [place] (Red) 1007) [facility](Emergen cy Medicine NMCP) OUTPATIENT [id number] EDEN ASHFORD 01/18 Released w/o Limitations [facility](Mercedes rgency Medicin e NMCP) Theater Facility OUTPATIENT [id number] Theater Provider 05/10 Released w/o Limitations Theater Facilit y [facility](Hearing Cons [place]) OUTPATIENT [id number] Notes Entered by: JANNETH EVANS 09 Oct 2017 1451 ------- ------- ------- ------- -- Annual JAC EVANS 10/09 Released w/o Limitations [facility](Hea ring Cons [place]) Theater Facility OUTPATIENT [id number] Theater Provider 11/07 Released w/o Limitations Theater Facilit y [facility](Emergen cy Medicine NMCP) OUTPATIENT [id number] CANDICE ESCALANTE 11/20 Released w/o Limitations [facility](Mercedes rgency Medicin e NMCP) [facility](Acute Care Ortho NMCP) OUTPATIENT [id number] Notes Entered by: KESHAV WEAVER 20 Nov 2018 0415 ------- ------- ------- ------- -- right small finger fractur e WAQAR ROBLEDO 11/20 Released with Work/Duty Limitations [facility](Acu te Care Ortho NMCP) [facility](Hand Surg [facility]) OUTPATIENT [id number] tracker right small finger fx MIRIAM KIM 11/28 Released with Work/Duty Limitations [facility](Fung d Surg NMCP) [facility](Hand Surg [facility]) OUTPATIENT [id number] f/u visit on rt.SF MIRIAM KIM 12/19 Released with Work/Duty Limitations [facility](Fnug d Surg NMCP) [facility](Occupat ional Therapy Hand Clinic [facility]CP) OUTPATIENT [id number] MARY Garcia 12/19 Released w/o Limitations [facility](Occ upation al Therapy Hand Clinic NMCP) [facility](Hearing Cons [place]) OUTPATIENT [id number] BRITTNI SALDANA 12/20 Released w/o Limitations [facility](Hea ring Cons [place]) [facility](Optomet ry [place]) OUTPATIENT [id number] EYE EXAM KESHAV CAI 01/09 Released w/o Limitations [facility](Opt ometry [place]) [facility](Hand Surg NMCP) OUTPATIENT [id number] f/u right SF MIRIAM KIM 02/27 Released w/o Limitations [facility](Fung d Surg NMCP) [facility] [place] [facility](P NavSta T2) OUTPATIENT [id number] 0 CristianoanayLUIS CORDERO 05/28 Released w/o Limitations [facility] NavSta T2) [facility] [place](Hearing [place]) OUTPATIENT [id number] SHANA BRITTNI ISMA 01/06 Released w/o Limitations [facility](Hea ring Cons [place]) [facility] [place] (Hearing Cons [place]) OUTPATIENT [id number] JESUS SINGH 01/07 Released w/o Limitations [facility](Hea ring Cons [place]) [facility] [id number] LEE ANN MALONE 03/31 Released w/o Limitations [facility](Mercedes rgency Medicin e NMCP) Theater Facility OUTPATIENT [id number] Theater Provider 04/14 Released with Work/Duty Limitations Theater Facilit y [facility]Immun[facility]ions [facility]) OUTPATIENT [id number] Notes Entered by: MADELYN HUYNH 24 Sep 2020 0951 ------- ------- ------- ------- -- LINCOLN ANSARI 09/24 Released w/o Limitations [facility]Imm [facility] ) Theater Facility OUTPATIENT [id number] Theater Provider 12/21 Released w/o Limitations Theater Facilit [facility](Derm atology - [facility]) OUTPATIENT [id number] UMER Moralez 01/11 Released w/o Limitations [facility](De rmatolo gy - [facility]) [facility](Fami ly Medicine ([facility])) TELE CONSULT [id number] Notes Entered by: FELICITAS BEARDEN,ALONZO WILLIAMSONEN 26 Jan 2021 1048 ------- ------- ------- ------- -- PT REQUEST A PRESCRI JELENA MIDDLETON 01/26 Other Not Elsewhere Classified [facility](Fa suad Medicin e ([facility])) [facility](Emergen cy Medicine NMCP) OUTPATIENT [id number] 1 FAYE-NEGRO ALMANZAR 06/20 Released w/o Limitations [facility](Mercedes rgency Medicin e NMCP) [facility], [facility]( Med Readiness Center) OUTPATIENT [id number] 2 PHA-NON STUDENT MIRIAM BECKER 01/19 Released w/o Limitations [facility], [facility]( [facility] Read[facility] ss Center) 003[facility] C [place] Dental [id number] ARMIDA DEWEY 11/27 Discharge Disposition: Home or Self Care [facility] [address] [place] [address] Clinic [id number] En[place] er for examina tion and observa tion for other specifi ed reasons ,Other specifi ed counseling program leader rodo MONTEMAYOR 12/02 Discharge Disposition: Home or Self Care [facility] 003-[facility] [id number] [facility] ed special examina tions YUE LOOMIS 12/02 Discharge Disposition: Home or Self Care [facility] 003[facility] C [place] Between Visit [id number] 12/02 Discharge Disposition: Home or Self Care [facility] Procedures Combined list of: 1) Procedures from Department of Veterans Affairs facilities going back up to thelast 18 months, not all VA non-surgical procedures are included; 2) All procedures from the Department of Defense facilities. Procedure Procedure Type Code Date Perfomer Comments Sour e Repair, primary, open or percutaneous, ruptured Achilles tendon; Repair, primary, open or percutaneous, ruptured Achilles tendon; [address] [place] [address] [place] Extraction, erupted tooth or exposed root (elevation and/or forceps removal) 2016 [facility] [place] TELE ASSESS & MGT SRV PROV QUAL NONPHYS HLTH CARE PRO TO EST PAT,PARENT,GUARD NOT ORIG REL ASSESS & MGT SRV PROV W/IN PREV 7 DAYS NOR LEAD ASSESS & MGT SRV/PX W/IN NXT 24 HR/SOON APT;5-10 MIN MED DIS 2020 [facility] DESTRUCTION (EG, LASER SURGERY, ELECTROSURGERY, CRYOSURGERY, CHEMOSURGERY, SURGICAL CURETTEMENT), OF BENIGN LESIONS OTHER THAN SKIN TAGS OR CUTANEOUS VASCULAR PROLIFERATIVE LESIONS; UP TO 14 LESIONS 2020 [facility] PSYCHIATRIC DIAGNOSTIC EVALUATION 2020 [facility] POLIOVIRUS VACCINE, INACTIVATED (IPV), FOR SUBCUTANEOUS OR INTRAMUSCULAR USE 2016 [facility] SKIN TEST; TUBERCULOSIS, INTRADERMAL 2016 [facility] IMMUNIZATION ADMINISTRATION (INCLUDES PERCUTANEOUS, INTRADERMAL, SUBCUTANEOUS, OR INTRAMUSCULAR INJECTIONS); EACH ADDITIONAL VACCINE (SINGLE OR COMBINATION VACCINE/TOXOID) 2016 [facility] PATIENT EDUCATION, NOT OTHERWISE CLASSIFIED, NON-PHYSICIAN PROVIDER, GROUP, PER SESSION 2016 [facility] VIS FUNCT SCREEN,AUTOMAT/SEMI -AUTOMAT BILAT QUANT DETERM VISUAL ACUITY,OCULAR ALIGN,COLOR VISION,PSEUDOISOCHR OMAT PLATES,& FIELD VIS (MAY INC ALL/SOME SCRN DETERM FOR CONTRAST SENSITIV,VIS UND GLARE) 2016 [facility] AUDIOMETRIC TESTING OF GROUPS 2016 [facility] KNEE ORTHOSIS, IMMOBILIZER, CANVAS LONGITUDINAL, PREFABRICATED, [id number] 2020 DoD IMMUNIZATION ADM,INTRAMUSCULAR INJECTION OF SEVERE AC RESPIRATORY SYNDROME CORONAVIR 2 (SARSCOV-2) (CORONAVIR DIS [COVID-19]) VACCINE,MRNALNP,SPI KE PROT,PRESERVATIVE FREE,100 MCG/0.5ML DOSAG;1ST DOSE 2020 [facility] INJECTION, KETOROLAC TROMETHAMINE, PER 15 MG 2019 DoD PATIENT EDUCATION, NOT OTHERWISE CLASSIFIED, NON-PHYSICIAN PROVIDER, INDIVIDUAL, PER SESSION 2019 [facility] PATIENT EDUCATION, NOT OTHERWISE CLASSIFIED, NON-PHYSICIAN PROVIDER, INDIVIDUAL, PER SESSION 2019 [facility] DETERMINATION OF REFRACTIVE STATE 2018 DoD PATIENT EDUCATION, NOT OTHERWISE CLASSIFIED, NON-PHYSICIAN PROVIDER, INDIVIDUAL, PER SESSION 2018 DoD FINGER ORTHOSIS, WITHOUT JOINTS, MAY INCLUDE SOFT INTERFACE, CUSTOM FABRICATED INCLUDES FITTING AND ADJUSTMENT 2018 [facility] UNLISTED FLUOROSCOPIC PROCEDURE (EG, DIAGNOSTIC, INTERVENTIONAL) 2018 [facility] APPLICATION OF SHORT ARM SPLINT (FOREARM TO HAND); STATIC 2018 [facility] PRESCRIPTION DRUG, ORAL, NONCHEMOTHERAPEUTIC , NOT OTHERWISE SPECIFIED 2018 [facility] PATIENT EDUCATION, NOT OTHERWISE CLASSIFIED, NON-PHYSICIAN PROVIDER, INDIVIDUAL, PER SESSION 2017 [facility] Determination Of Refractive State Determination Of Refractive State 05697 2018 KESHAV CAI Ophthalmological New Patient Start Comprehensive Care Ophthalmological New Patient Start Comprehensive Care 96381 2018 KESHAV CAI Patient education, not otherwise cla ified, non-physician provider, individual, per se ion 2018 PACO CASTELLANOS Threshold Audiogram (Pure Tone) Automated Threshold Audiogram (Pure Tone) Automated 0208T 2018 PACO CASTELLANOS Finger orthosis, without joints, may include soft interface, custom fabricated, includes fitting and adjustment 2018 MARY LUIS Physical Therapy Education Orthotics Training Physical Therapy Education Orthotics Training 08926 2018 MARY LUIS Fluoroscopy Fluoroscopy 67380 2018 MAHESH KIM Orthopedic Splinting Short Arm Orthopedic Splinting Short Arm 82631 2018 KESHAV WEAVER Fluoroscopy Up To One Hour Physician Time Fluoroscopy Up To One Hour Physician Time [id number] 2018 KESHAV WEAVER Patient education, not otherwise cla ified, non-physician provider, individual, per se ion 2017 JAC EVANS Threshold Audiogram (Pure Tone) Automated Threshold Audiogram (Pure Tone) Automated 0208T 2017 JAC EVANS Skin Test Anergy Tuberculin Intradermal Skin Test Anergy Tuberculin Intradermal 17569 2016 ZACHARIAH SALTER IPPD; Series #: 1; .1 mL; ID; Left Arm; Mfg: Sanofi Pasteur; Lot: [id number]; VIS given. [facility] Injection, penicillin g benzathine, 100,[address] Supervised Injection Intramuscular Antibiotic Supervised Injection Intramuscular Antibiotic 42608 2016 WILL INGRAM [facility] Vaccines Adenovirus Type 7 Live, For Oral Use Vaccines Adenovirus Type 7 Live, For Oral Use 06482 2016 WILL INGRAM [facility] Immunization Admin Intranasal / Oral Each Additional Vaccine Immunization Admin Intranasal / Oral Each Additional Vaccine 36457 2016 WILL INGRAM [facility] Vaccines Adenovirus Type 4 Live, For Oral Use Vaccines Adenovirus Type 4 Live, For Oral Use 05125 2016 WILL INGRAM [facility] Influenza Split Virus Vaccine Age 3+ Years Intramuscular 2016 WILL INGRAM [facility] Immunization Administration Each Additional Vaccine Immunization Administration Each Additional Vaccine 86374 2016 WILL INGRAM [facility] Meningococcal Polysacch Diphtheria Toxoid Conjugate Vaccine 2016 WILL INGRAM Meningococcal MCV4P; Series #: 1; .5 mL; IM; Left Arm; Mfg: Sanofi Pasteur; Lot: [id number]; VIS given (Rekha: 11/04/2015). [facility] Tdap Vaccine Tdap Vaccine 63780 2016 WILL INGRAM Tdap; Series #: 1; .5 mL; IM; Right Arm; Mfg: Other; Lot: [id number]; VIS given (Rekha: 09/29/14). [facility] Immunization Administration One Vaccine Immunization Administration One Vaccine 53760 2016 WILL INGRAM [facility] Patient education, not otherwise cla ified, non-physician provider, group, per se ion 2016 RUDDY ALMARAZ [facility] Visual Function Screening Visual Function Screening 44080 2016 NEDRA BELTRAN [facility] Threshold Audiogram (Pure Tone) Threshold Audiogram (Pure Tone) 24820 2016 [place] [facility] Group Testing Audiometry Group Testing 20510 2016 [place] Threshold Audiogram (Pure Tone) Automated Threshold Audiogram (Pure Tone) Automated 0208T BRITTNI SALDANA [facility] Patient education, not otherwise cla ified, non-physician provider, individual, per se ion BRITTNI SALDANA [facility] Immunization Administration One Vaccine Immunization Administration One Vaccine 52820 LINCOLN SEGURA [facility] Psychiatric Evaluation Psychiatric Evaluation 01520 ERICK ARREDONDO [place] Paring / Curettage Of Benign Hyperkeratotic Lesion, Single Paring / Curettage Of Benign Hyperkeratotic Lesion, Single 43734 UMER UPTON [place] Paring / Curettage Of Benign Hyperkeratotic Lesions, 2-4 Paring / Curettage Of Benign Hyperkeratotic Lesions, 2-4 14335 YUANUMER Destruction Of Benign Lesion By Any Method Destruction Of Benign Lesion By Any Method 79365 UMER UPTON [place] Non-Physician Phone Call To Patient/Provider Brief (5-10min) Non-Physician Phone Call To Patient/Provider Brief (5-10min) [id number] JELENA YOUNG [facility] Social History Combined list of available smoking, tobacco, and other social history from [facility] of Defense and Veterans Affairs facilities. Social History Type Response Date Comment Sourc e Sex Representation Male (finding) 06/26/2022 Un known Organization Sexual Orientation [facility] Gender identity Amb[facility] y Pharmacy This section is an empty social history section. [facility] Assessment and Plan Combined list of future care activities from Department of Defense and Veterans Affairs facilities (e.g., assessment and plan notes, appointments, orders, and referrals). Additional future care activities may be listed in the Plan of Care section. Result Assessment and Plan Date Source Assessment and Plan Extracted from:Title : [facility] Author: MAYANK HACKETT Date: 12/02/24 1. E ncounter for other specified special examinations Extracted from:Title: Office Clinic Note Author: AILYN REID Date: 12/02/24 Encounter for examination and observation for other specified reasons Hearing WNL. Patient had an early warning shift in his left ear on today's audiogram based on comparison of his 2017 baseline. Patient acknowledged his results. Individual counseled on proper use of hand formed (Sound Guard) hearing protection insertion and uses in noise. ?FINAL H CP review completed today. A copy of the hearing test was given to patient and a copy of the hearing test was uploaded into [facility]. Other specified counseling Hearing conservation counseling f or I NDIVIDUAL p atient included: - Dangers of hazardous noise and prevention [...] Service-specific requirements Total Counseling Time: 16 minutes Ailyn Reid, Wallpaperer Crop Consultant [facility], [place], [place] Extracted from:Title: LIMDU: LEFT ACHILLES RUPTURE S/P REPAIR Author: LUIS SKY NP Date: 06/26/23 1. R upture of left Achilles tendon 27 y/o ADM to clinic for LIMDU f/u. Pt. is engaged in care with a civilian PCM but requires this visit for administrative purposes. Clinical History: -[id number] Left Achilles rupture while running on treadmill and felt a pop. -[id number] Left Achilles repair -Engaged with [facility] and physical therapy twice weekly p ost-operatively and progressing as expected. Pt. currently out of walking boot and back in regular uniform with working boots. -LIMDU initiated today [id number] -Monthly LIMDU f/u virtually due to distance. -Pt. v/u and concurs. 20-29 (33933) m inutes total time spent on evaluation and management.Standby was offered to the patient and documented in note if accepted. Medications reconciled. Care plan developed with the p atientand agreed upon. Pt v erbalizes understanding of plan. T here were no obvious barriers to learning. Luis Sky, DNP, RETAIL ADVERTISING ACCOUNT EXECUTIVE, CALL CENTER ASSOCIATE-C , [place], [facility] Extracted from:Title: LIMDU: S/P LEFT ACHILLES RUPTURE REPAIR Author: LUIS SKY NP Date: 05/16/23 1. R upture of left Achilles tendon 27 y/o ADM to clinic for LIMDU f/u. Pt. is engaged in care with a civilian PCM but requires this visit for administrative purposes. Clinical History: -[id number] Left Achilles rupture while running on treadmill and felt a pop. -[id number] Left Achilles repair -Engaged with [facility] and physical therapy post-operatively and progressing as expected. Pt. currently out of walking boot. -LIMDU initiated today [id number] -Monthly LIMDU f/u virtually due to distance. -Pt. v/u and concurs. 20-29 (87508) m inutes total time spent on evaluation and management.Standby was offered to the patient and documented in note if accepted. Medications reconciled. Care plan developed with the patricia connors agreed upon. Pt oziel coronado understanding of plan. T here were no obvious barriers to learning. Luis Sky DNP, RETAIL ADVERTISING ACCOUNT EXECUTIVE, CALL CENTER ASSOCIATE-C [place], [place], [place] [facility] Extracted from:Title: LIMDU: L ACHILLES RUPTURE Author: LUIS SKY NP Date: 04/25/23 1. R upture of left Achilles tendon 27 y/o ADM to clinic for placement on LIMDU. Pt. is engaged in care with a civilian PCM but requires this visit for administrative purposes. Clinical History: -[id number] Left Achilles rupture while running on treadmill and felt a pop. -[id number] Left Achilles repair -Engaged with [facility] and physical therapy post-operatively and progressing as expected. -LIMDU initiated today [id number]; directed to Medical Boards -Monthly LIMDU f/u virtually due to distance. -Pt. v/u and concurs. 30-39 ([id number]) m inutes total time spent on evaluation and management.Standby was offered to the patient and documented in note if accepted. Medications reconciled. Care plan developed with the patricia connors agreed upon. Pt oziel coronado understanding of plan. T here were no obvious barriers to learning. Luis Sky DNP, RETAIL ADVERTISING ACCOUNT EXECUTIVE, CALL CENTER ASSOCIATE-C [place], [place], [place] [facility] Future Scheduled TestsLaboratoryHIV-1/2 AG/AB 4G CDD 12/02/24 [id number] Extracted from:Title : [facility] Author: MAYANK HACKETT Date: 12/02/24 1. E ncounter for other specified special examinations Extracted from:Title: Office Clinic Note Author: AILYN REID Date: 12/02/24 Encounter for examination and observation for other specified reasons Hearing WNL. Patient had an early warning shift in his left ear on today's audiogram based on comparison of his 2017 baseline. Patient acknowledged his results. Individual counseled on proper use of hand formed (Sound Guard) hearing protection insertion and uses in noise. ?FINAL H CP review completed today. A copy of the hearing test was given to patient and a copy of the hearing test was uploaded into [facility]. Other specified counseling Hearing conservation counseling f or I NDIVIDUAL p atient included: - Dangers of hazardous noise and prevention [...] Service-specific requirements Total Counseling Time: 16 minutes Ailyn Reid, Wallpaperer Crop Consultant [facility], [place], [place] Extracted from:Title: LIMDU: LEFT ACHILLES RUPTURE S/P REPAIR Author: LUIS SKY NP Date: 06/26/23 1. R upture of left Achilles tendon 27 y/o ADM to clinic for LIMDU f/u. Pt. is engaged in care with a civilian PCM but requires this visit for administrative purposes. Clinical History: -[id number] Left Achilles rupture while running on treadmill and felt a pop. -[id number] Left Achilles repair -Engaged with [facility] and physical therapy twice weekly p ost-operatively and progressing as expected. Pt. currently out of walking boot and back in regular uniform with working boots. -LIMDU initiated today [id number] -Monthly LIMDU f/u virtually due to distance. -Pt. v/u and concurs. 20-29 (67030) m inutes total time spent on evaluation and management.Standby was offered to the patient and documented in note if accepted. Medications reconciled. Care plan developed with the p atientand agreed upon. Pt v erbalizes understanding of plan. T here were no obvious barriers to learning. Luis Sky, DNP, RETAIL ADVERTISING ACCOUNT EXECUTIVE, CALL CENTER ASSOCIATE-C , [place], [facility] Extracted from:Title: LIMDU: S/P LEFT ACHILLES RUPTURE REPAIR Author: LUIS SKY NP Date: 05/16/23 1. R upture of left Achilles tendon 27 y/o ADM to clinic for LIMDU f/u. Pt. is engaged in care with a civilian PCM but requires this visit for administrative purposes. Clinical History: -[id number] Left Achilles rupture while running on treadmill and felt a pop. -[id number] Left Achilles repair -Engaged with [facility] and physical therapy post-operatively and progressing as expected. Pt. currently out of walking boot. -LIMDU initiated today [id number] -Monthly LIMDU f/u virtually due to distance. -Pt. v/u and concurs. 20-29 (71161) m inutes total time spent on evaluation and management.Standby was offered to the patient and documented in note if accepted. Medications reconciled. Care plan developed with the p dory agreed upon. Pt v erbalizes understanding of plan. T here were no obvious barriers to learning. Luis Sky DNP, RETAIL ADVERTISING ACCOUNT EXECUTIVE, [place], [place], N [facility] Extracted from:Title: LIMDU: L ACHILLES RUPTURE Author: LUIS SKY NP Date: 04/25/23 1. R upture of left Achilles tendon 27 y/o ADM to clinic for placement on LIMDU. Pt. is engaged in care with a civilian PCM but requires this visit for administrative purposes. Clinical History: -[id number] Left Achilles rupture while running on treadmill and felt a pop. -[id number] Left Achilles repair -Engaged with [facility] and physical therapy post-operatively and progressing as expected. -LIMDU initiated today [id number]; directed to Medical Boards -Monthly LIMDU f/u virtually due to distance. -Pt. v/u and concurs. 30-39 ([id number]) m inutes total time spent on evaluation and management.Standby was offered to the patient and documented in note if accepted. Medications reconciled. Care plan developed with the p dory agreed upon. Pt v erbalizes understanding of plan. T here were no obvious barriers to learning. Luis Sky DNP, RETAIL ADVERTISING ACCOUNT EXECUTIVE, [place] , [place], [facility] Future Scheduled TestsLaboratoryHIV-1/2 AG/AB 4G CDD 12/02/24 02/19/2025 Unknown Organization Functional Status Combined list of recent functional and cognitive assessments recorded at [facility] and [facility] ([facility] Functional Watson Measurement (FIM) Scale: 1 = Total Assistance (Subject = 0% +), 2 = Maximal Assistance (Subject = 25% +), 3 = Moderate Assistance (Subject = 50% +), 4 = Minimal Assistance (Subject = 75% +), 5 = Supervision, 6 = Modified Watson (Device), 7 = Complete Watson (Timely, Safely). Assessment Date/Time Source Assessment Type Assessment Skill Assessment Score Assessment Details No data available for this section
--- OUTSIDE RECORDS SUMMARY | 2025-02-19 08:48 | XMS_ITS | Clinical Summary ---
Author Organization [facility] Address [address] [place] [id number] Care Team Providers Care Jukebox Coin Collector Name Role Phone Tess Campoverde APRN Primary Care Provider Un available Allergies No known active allergies Medications ergocalciferol (VITAMIN D2,DRISDOL) 04632 units Cap Take by mouth. 2 Active [...] patient's age to complete this topic Insurance [facility] Care Teams Jukebox Coin Collector Relationship Specialty Start Date End Date Tess Campoverde APRN PCP - General
--- OUTSIDE RECORDS SUMMARY | 2025-02-19 08:48 | XMS_ITS ---
Author Name [facility] Organization Unknown Problems Problem Status Onset Date Problem Type Date of Resoluti on Source Pain in wrist, unspecified laterality active EncounterDiagnosisAct HHCCT Chronic hand pain, unspecified laterality active EncounterDiagnosisAct CCT Encounters Encounter Type Encounter Reason Primary Diagnosis Location Date Ambulatory Irritability and anger [facility] [employer] 10/09/2022 Care Team Organization Name Specialty Phone Email Start Date End Da te [place] [employer] [facility] 10/09/20222022 [facility] 10/09/2022
--- OUTSIDE RECORDS SUMMARY | 2025-02-19 08:48 | XMS_ITS | Clinical Summary ---
Author Organization [facility] Address [address] [place] [address] Care Team Providers Care Owner Professional Engineer Name Role Phone Tess Campoverde APRN Primary Care Provider [phone] Medications Medication Sig Dispensed Refills Start Date [...] (1 - Tdap) 2016 Influenza Vaccine (#1) 2025 Pneumococcal Vaccine Aged Out No long er eligible based on patient's age to complete this topic RSV Ped < 20 months Aged Out No longe r eligible based on patient's age to complete this topic Care Teams Owner Professional Engineer Relationship Specialty Start Date End Date Tess Campoverde APRN PCP - General Nurse Practitioner 04/11/22
--- NOTE | 2025-02-19 09:16 | MHC.OFFVIS ---
Vital Signs 02/19/25 09:24 Height 5 ft 8 in Weight 216 lb 0.848 oz BMI 32.8 BP 119/64 Blood Pressure Location Rt brachial Position Sitting Pulse 55 Intake Visit Reasons: rast Intake Note: Shailesh presents in the office as a follow up for his RAST allergen. CC: No concerns today - just wants to discuss if he may need EGD And COLO. Dinkey Engineer Required: No Allergies No Known Allergies Allergy (Verified 02/19/25 09:24) HPI HPI rast: Details: Assessment & Plan (1) Blood per rectum: Code(s): K62.5 - Hemorrhage of anus and rectum Category: Medical (2) Anemia: Code(s): D64.9 - Anemia, unspecified Category: Medical (3) Family history of colon cancer in mother: Comment: At age 45 she is just completing chemotherapy Code(s): Z80.0 - Family history of malignant neoplasm of digestive organs Category: Medical (4) Pre-op examination: Code(s): Z01.818 - Encounter for other preprocedural examination Category: Medical (5) Sleep apnea: Comment: Mild degree of sleep apnea. AHI was 8/hr and oxygen ely was 85% Code(s): G47.30 - Sleep apnea, unspecified Category: Medical (6) Upper abdominal pain: Code(s): R10.10 - Upper abdominal pain, unspecified Category: Medical (7) Diarrhea: Code(s): R19.7 - Diarrhea, unspecified Category: Medical Plan He has occasional rectal bleeding, he has had stomach problems since being in the . He has intermittent diarrhea and the bleeding was happening during this phase. The diarrhea is really set off by beef and fatty foods. His mother was diagnosed with CRC at age 46 and is just completing chemo. He will occasionally not move his bowels, but when he does it may well be diarrheal as well. No know FHX of similar diarrheal syndromes or food allergies. He does have some manifestation with his anxiety if I'm worked up. No alarm sg/sx. While most likely this is hemorrhoidal bleeding given his family history of relatively early colon cancer I think a colonoscopy is prudent. However I think we need to do a little bit of a workup around his diarrhea to find out if there are any other reversible pathology such as food allergies or IBD. He is agreeable to additional blood work. In the meantime I will give him a trial of dicyclomine to see if this helps give him more comfort and better functionality since his stomach problems frequently make his days harder, even though he pushes through them so as not to miss work. Return office visit next available Orders: Orders Colonoscopy - GI Use Only Today K62.5 - Hemorrhage of anus and rectum, Z01.818 - Encounter for other preprocedural examination Transglutaminase IgA Today R10.10 - Upper abdominal pain, unspecified Transglutaminase Ab IgG Today R10.10 - Upper abdominal pain, unspecified Rast Allergen Today R10.10 - Upper abdominal pain, unspecified US abdomen complete Today R10.10 - Upper abdominal pain, unspecified C Reactive Protein Today R10.10 - Upper abdominal pain, unspecified H Pylori Breath Test Today R10.10 - Upper abdominal pain, unspecified Medications: New bisacodyl (Dulcolax (bisacodyl)) 10 mg (2 x 5 mg) PO BEDTIME 4 tabs 0RF 2 days peg 3350-electrolytes 236-22.74-6.74 -5.86 gram (Golytely) until fecal effluent is clear; do not exceed a total volume of 2,000 mL 240 mL PO Q10M 4,000 mL 0RF 1 day Z12.11 - Encounter for screening for malignant neoplasm of colon dicyclomine 20 mg PO QID 120 tabs 6RF 30 days R19.7 - Diarrhea, unspecified LABS: Laboratory Tests 01/01/25 01/02/25 11:18 09:20 C-Reactive Protein 0.97 H Tiss Transglutamin IgG <1.0 Tiss Transglutamin IgA <1.0 H. pylori Breath Test Negative RAST PANEL SHOWED NO SIGNIFICANT FOOD ALLERGIES ULTRASOUND OF THE ABDOMEN NOT yet read COLONOSCOPY BIOPSY TODAY'S VISIT The bentyl is helping to delay and lessen sx. Including the upper abdominal discomfort. Will get fecal madina since CRP elevated and go from there. (He has intermittent diarrhea and the rectal bleeding was happening during this phase. The diarrhea is really set off by beef and fatty foods. Anxiety be also be a factor.) So far he is happy with the results. He has had no further rectal bleeding. ROV 6 weeks. PFSH Medical History Finger pain, right Bilateral wrist pain Family history of type 1 diabetes mellitus Frequent headaches Rash Laboratory exam ordered as part of routine general medical examination Sleep apnea Back pain Migraines Achilles tendon tear Anxiety Depression Surgical History H/O Achilles tendon repair Family History (Updated 02/19/25 @ 09:24 by NALLELY Leahy) Mother Arthritis Colon cancer Father Diabetes Social History Household Members: Family Housing: House Alcohol intake: current Patient Tobacco Use Status: Never used Tobacco e-Cigarette/Vaping Use: Never Used Special hari needs: Yes service: Yes Current occupational status: employed 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, 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 Cognitive needs: No Hearing needs: No Vision needs: No Review of Systems Const Denies fatigue, Denies fever(s), Denies night sweats, Denies poor appetite and Denies weight loss ENT Reports Normal hearing present, Denies dental pain, Denies dysphagia, Denies hearing loss, Denies mouth pain, Denies odynophagia, Denies throat swelling, Denies tongue swelling and Reports other (Dentition adequate) Card Reports no additional complaints Resp Reports no additional complaints GI Details: Denies abdominal pain, Denies melena, Denies bloating, Denies hematochezia, Denies constipation, Denies GI cramping, Denies dysphagia, Denies excessive flatus, Denies early satiety, Denies heartburn, Reports diarrhea, Denies nausea, Denies odynophagia, Denies vomiting and Denies hematemesis Skin/Breast Denies pruritus, Denies lesions, Denies rash and Denies jaundice Neuro Reports Normal hearing present and Denies Abnormal speech present Endo Denies fatigue Aller/Immun Denies throat swelling and Denies tongue swelling Physical Exam Vital Signs: Last Vital Signs Pulse 55 02/19/25 09:24 BP 119/64 02/19/25 09:24 BMI result Body Mass Index 32.8 Const General: cooperative, no acute distress, well developed and well groomed Nutritional Appearance: well nourished and overweight Orientation/consciousness: oriented to person, oriented to place and oriented to time Limitations: No language barrier HEENT Head: Yes normocephalic and Yes atraumatic Eyes General: appearance normal, both eyes and all related structures Pupils: Equal, round and reactive pupils present Neck Neck: Yes normal visual inspection and Yes no lymphadenopathy Thyroid: Thyroid normal Resp Effort & Inspection: normal respiratory effort and able to speak in complete sentences Auscultation: clear to auscultation bilaterally Cardio Rate: regular rate Rhythm: regular rhythm Heart sounds: Normal, physiologic split S2 sound present Peripheral pulses: radial pulses present and posterior tibial pulses present GI Inspection: No distended and No Abdominal panniculus present Palpation (GI): Soft to palpation, nontender, no guarding, not rigid and No hepatosplenomegaly present Percussion: Yes normal to percussion Auscultation: normal bowel sounds Rectal Exam - Male: Yes deferred Skin General skin exam: no rashes or lesions noted, turgor normal, skin not dry, no jaundice, No spider nevi and no striae Rashes: no rashes Nails: normal Neuro General: oriented to person, oriented to place and oriented to time Cranial nerves: Yes Equal, round and reactive pupils present and Yes Normal hearing present Speech: No Abnormal speech present Extrem General: Yes normal to inspection, No clubbing, No cyanosis and No edema Psych Appearance: grossly normal and well kempt Mental Status: mental status grossly normal Speech and movement: Normal speech and movement present Affect: normal affect Attitude: cooperative Thought process: Normal thought process present and not confabulating Thought content: Normal thought content present Insight: Good insight present (Psych) Judgement: Good judgement present (Psych) Assessment & Plan Assessment & Plan (1) Diarrhea: Code(s): R19.7 - Diarrhea, unspecified Category: Medical (2) Blood per rectum: Code(s): K62.5 - Hemorrhage of anus and rectum Category: Medical Plan The bentyl is helping to delay and lessen sx. Including the upper abdominal discomfort. Will get fecal madina since CRP elevated and go from there. (He has intermittent diarrhea and the rectal bleeding was happening during this phase. The diarrhea is really set off by beef and fatty foods. Anxiety be also be a factor.) So far he is happy with the results. He has had no further rectal bleeding. ROV 6 weeks. ULTRASOUND OF THE ABDOMEN NOT yet read COLONOSCOPY BIOPSY Orders: Orders Calprotectin, Fecal Today R19.7 - Diarrhea, unspecified Coding Level of Care Code Est Pt Level 3 (39053) Diagnoses Diarrhea R19.7 Blood per rectum K62.5
[2025-02-19 09:24] VITALS: BP 119/64; PULSE 55; BMI 32.8
== END 2025-02-19 09:58 | disposition home or self-care (01) ==
LOC: HO.HGI 08:40
PROVIDERS: PCP Family Medicine; Visit Provider Nurse Practitioner
DX: R19.7 Diarrhea, unspecified (principal); K62.5 Hemorrhage of anus and rectum
CPT/HCPCS: 99213

== ENCOUNTER 2025-02-19 08:46 | Outpatient (REF) | payer OTHER, SELFPAY ==
--- NOTE | ~2025-02-19 | US_ITS ---
CLINICAL HISTORY: R10.10 - Upper abdominal pain, unspecified US abdomen complete Comparison: US/SR - US ABDOMEN - 08/05/24 09:00 EST Findings: The pancreas is normal. The visualized aorta and inferior vena cava are normal caliber. The liver is normal in size, right lobe length is 14.6 cm. Normal in echogenicity, no discrete lesion is visualized in the imaged liver. No intrahepatic bile duct dilatation. The common duct is 3 mm in diameter. The gallbladder is normal. Negative sonographic Ordoñez sign. The main portal vein is patent with antegrade flow. Bilateral renal lower poles are not well seen due to bowel gas/rib shadowing. The right kidney is grossly normal, 10.2 cm in length. The left kidney is grossly normal, 9.8 cm in length. The spleen is normal, 9.8 cm in length. No free fluid in the abdomen. Impression: Normal exam. This document has been electronically signed by: Petrona Burks MD on 02/19/2025 17:17:31
== END 2025-02-19 08:47 | disposition home or self-care (01) ==
LOC: HO.US 08:46
PROVIDERS: PCP Physician Assistant; Visit Provider Nurse Practitioner
DX: R10.10 Upper abdominal pain, unspecified (principal); R19.7 Diarrhea, unspecified; K62.5 Hemorrhage of anus and rectum
CPT/HCPCS: 76700; 99212

== ENCOUNTER → 2025-02-19 08:48 | Outpatient (BNV) | payer OTHER, SELFPAY | PROVIDERS: PCP Physician Assistant; Visit Provider Radiology Diagnostic Radiology | DX: R10.10 Upper abdominal pain, unspecified (principal) | CPT/HCPCS: 76700 ==

== ENCOUNTER 2025-04-10 14:59 | Outpatient (REF) | payer OTHER, SELFPAY ==
--- OUTSIDE RECORDS SUMMARY | 2025-04-10 15:01 | XMS_ITS | Encounter Summary ---
Author Organization [facility] Address [address] [place] [address] Care Team Providers Care Electrical Engineer Mep Name Role Phone Tess Campoverde APRN Primary Care Provider Un available Encounter Details Date Type Department Care Team (Late st Contact Info) Description 10/13/2022 Scanned Document [facility] Department of Internal Medicine [place] [address] [place] [phone] Tess Campoverde APRN *need valid address Social [...] on filedocumented in this encounter Care Teams Electrical Engineer Mep Relationship Specialty Start Date End Date Tess Campoverde APRN PCP - General documented as of this encounter
--- OUTSIDE RECORDS SUMMARY | 2025-04-10 15:01 | XMS_ITS | Encounter Summary ---
Author Organization [facility] Address [address] [place] [address] Care Team Providers Care Skinner Pelts Name Role Phone Tess Campoverde APRN Primary Care Provider Un available Encounter Details Date Type Department Care Team (Late st Contact Info) Description 01/19/2023 Scanned Document [facility] Department of Internal Medicine [place] [address] [place] [phone] Tess Campoverde APRN *need valid address Social [...] on filedocumented in this encounter Care Teams Skinner Pelts Relationship Specialty Start Date End Date Tess Campoverde APRN PCP - General documented as of this encounter
--- OUTSIDE RECORDS SUMMARY | 2025-04-10 15:01 | XMS_ITS | Encounter Summary ---
Author Organization [facility] Address [address] [place] [address] Care Team Providers Care Athletic Team Physician Name Role Phone Tess Campoverde APRN Primary Care Provider Un available Encounter Details Date Type Department Care Team (Late st Contact Info) Description 10/19/2022 Scanned Document [facility] Department of Internal Medicine [address] [phone] Swati May APRN [address] [place] [address] Social History Tobacco Use Types Packs/Day Years [...] on filedocumented in this encounter Care Teams Athletic Team Physician Relationship Specialty Start Date End Date Tess Campoverde APRN PCP - General documented as of this encounter
--- OUTSIDE RECORDS SUMMARY | 2025-04-10 15:01 | XMS_ITS | Encounter Summary ---
Author Organization [facility] Address [address] [place] [address] Care Team Providers Care Principal Archaeologist Name Role Phone Tess Campoverde APRN Primary Care Provider Un available Encounter Details Date Type Department Care Team (Late st Contact Info) Description 11/23/2022 Scanned Document [facility] Department of Internal Medicine [place] [address] [place] [phone] Tess Campoverde APRN *need valid address Social [...] on filedocumented in this encounter Care Teams Principal Archaeologist Relationship Specialty Start Date End Date Tess Campoverde APRN PCP - General documented as of this encounter
--- OUTSIDE RECORDS SUMMARY | 2025-04-10 15:01 | XMS_ITS | Clinical Summary ---
Author Organization [facility] Address [address] [place] [address] Care Team Providers Care Part Time Name Role Phone Tess Campoverde APRN Primary Care Provider Un available Allergies No known active allergies Medications ergocalciferol (VITAMIN D2,DRISDOL) 41568 units Cap Take by mouth. 2 Active [...] - 19+ 3-dose series) 2016 COVID-19 Vaccine ( - 2023-2 5 season) 2024 HPV Vaccines (1 - 3-dose SCD M series) 2024 Influenza Vaccine 03/06/2025 05/08/2023, 05/04/2022 Pneumococcal Vaccine: Pediatric (0-5 Years) and At-Risk Patients (6 to 49 Years) Aged Out No longer eligible b ased on patient's age to complete this topic Insurance [facility] Care Teams Part Time Relationship Specialty Start Date End Date Tess Campoverde APRN PCP - General
--- OUTSIDE RECORDS SUMMARY | 2025-04-10 15:01 | XMS_ITS | Clinical Summary ---
Author Organization [email or web address] Address [address] [place] [address] Care Team Providers Care Events Intern Name Role Phone Tess Campoverde APRN Primary [...] age to complete this topic Care Teams Events Intern Relationship Specialty Start Date End Date Tess Campoverde APRN PCP - General Nurse Practitioner 04/11/22
--- OUTSIDE RECORDS SUMMARY | 2025-04-10 15:01 | XMS_ITS | Encounter Summary ---
Author Organization [facility] Address [address] [place] [address] Care Team Providers Care Heat Treat Inspector Name Role Phone Tess Campoverde APRN Primary Care Provider Un available Encounter Details Date Type Department Care Team (Late st Contact Info) Description 05/08/2023 Scanned Document [facility] Department of Internal Medicine [place] [address] [place] [phone] Tess Campoverde APRN *need valid address Social [...] on filedocumented in this encounter Care Teams Heat Treat Inspector Relationship Specialty Start Date End Date Tess Campoverde APRN PCP - General documented as of this encounter
--- OUTSIDE RECORDS SUMMARY | 2025-04-10 15:01 | XMS_ITS | Encounter Summary ---
Author Organization [facility] Address [address] [place] [address] Care Team Providers Care Nurse Aide Evaluator Name Role Phone Tess Campoverde APRN Primary Care Provider Un available Reason for Visit * Reason Comments Medication Refill Encounter Details Date Type Department Care Team (Late st Contact Info) Description 01/29/2023 Refill [facility] Department of Internal Medicine [place] [address] [place] [phone] Tess Campoverde APRN *need valid [...] uncontrolled documented in this encounter Care Teams Nurse Aide Evaluator Relationship Specialty Start Date End Date Tess Campoverde APRN PCP - General documented as of this encounter
--- OUTSIDE RECORDS SUMMARY | 2025-04-10 15:01 | XMS_ITS | Encounter Summary ---
Author Organization [facility] Address [address] [place] [address] Care Team Providers Care Ic Designer Custom Name Role Phone Tess Campoverde APRN Primary Care Provider Un available Encounter Details Date Type Department Care Team (Late st Contact Info) Description 04/19/2023 Scanned Document [facility] Department of Internal Medicine [place] [address] [place] [phone] Tess Campoverde APRN *need valid address Social [...] on filedocumented in this encounter Care Teams Ic Designer Custom Relationship Specialty Start Date End Date Tess Campoverde APRN PCP - General documented as of this encounter
--- OUTSIDE RECORDS SUMMARY | 2025-04-10 15:01 | XMS_ITS | Encounter Summary ---
Author Organization [facility] Address [address] [place] [address] Care Team Providers Care Vice President Fixed Income Name Role Phone Tess Campoverde APRN Primary Care Provider Un available Reason for Visit * Reason Comments Medication Refill Encounter Details Date Type Department Care Team (Late st Contact Info) Description 02/28/2023 Refill [facility] Department of Internal Medicine [place] [address] [place] [phone] Tess Campoverde APRN *need valid [...] unspecified documented in this encounter Care Teams Vice President Fixed Income Relationship Specialty Start Date End Date Tess Campoverde APRN PCP - General documented as of this encounter
--- OUTSIDE RECORDS SUMMARY | 2025-04-10 15:01 | XMS_ITS | Encounter Summary ---
Author Organization [facility] Address [address] [place] [address] Care Team Providers Care Guide Rail Cleaner Name Role Phone Tess Campoverde APRN Primary Care Provider Un available Reason for Visit * Reason Comments Medication Refill Encounter Details Date Type Department Care Team (Late st Contact Info) Description 11/13/2022 Refill [facility] Department of Internal Medicine [place] [address] [place] [phone] Tess Campoverde APRN *need valid [...] uncontrolled documented in this encounter Care Teams Guide Rail Cleaner Relationship Specialty Start Date End Date Tess Campoverde APRN PCP - General documented as of this encounter
--- OUTSIDE RECORDS SUMMARY | 2025-04-10 15:01 | XMS_ITS | Encounter Summary ---
Author Organization [facility] Address [address] [place] [address] Care Team Providers Care Neon Tube Pumper Name Role Phone Tess Campoverde APRN Primary Care Provider Un available Encounter Details Date Type Department Care Team (Late st Contact Info) Description 07/24/2023 Scanned Document [facility] Department of Internal Medicine [place] [address] [place] [phone] Tess Campoverde APRN *need valid address Social [...] on filedocumented in this encounter Care Teams Neon Tube Pumper Relationship Specialty Start Date End Date Tess Campoverde APRN PCP - General documented as of this encounter
[2025-04-16 20:42] LABS: Calprotectin, Fecal 19 mcg/g
== END 2025-04-10 15:00 | disposition home or self-care (01) ==
LOC: HO.LNP 14:59
PROVIDERS: Visit Provider Nurse Practitioner
DX: R19.7 Diarrhea, unspecified (principal)
CPT/HCPCS: 83993

== ENCOUNTER 2025-04-29 16:28 | Outpatient (AMB) | payer OTHER, SELFPAY ==
[2025-04-29 16:32] VITALS: BP 129/59; BMI 33.2
--- NOTE | 2025-04-29 16:32 | MHC.OFFVIS ---
Vital Signs 04/29/25 16:32 Height 5 ft 8 in Weight 218 lb 11.177 oz BMI 33.2 BP 129/59 L Blood Pressure Location Lt brachial Position Sitting Intake Visit Reasons: Follow up calprotectin Intake Note: Patient in office today in follow up of calprotectin test. CC: Patient reports no changes and states that he continues having the same symptoms. Trapper Bird Required: No Accompanied by: Self / Same As Patient Allergies No Known Allergies Allergy (Verified 04/29/25 16:40) HPI HPI Follow up calprotectin: Details: Assessment & Plan (1) Diarrhea: Code(s): R19.7 - Diarrhea, unspecified Category: Medical (2) Blood per rectum: Code(s): K62.5 - Hemorrhage of anus and rectum Category: Medical Plan The bentyl is helping to delay and lessen sx. Including the upper abdominal discomfort. Will get fecal madina since CRP elevated and go from there. (He has intermittent diarrhea and the rectal bleeding was happening during this phase. The diarrhea is really set off by beef and fatty foods. Anxiety be also be a factor.) So far he is happy with the results. He has had no further rectal bleeding. ROV 6 weeks. Orders: Orders Calprotectin, Fecal Today R19.7 - Diarrhea, unspecified LABS: Laboratory Tests 04/10/25 13:29 Stool Calprotectin 19 ULTRASOUND OF THE ABDOMEN 02/19/2025 Findings: The pancreas is normal. The visualized aorta and inferior vena cava are normal caliber. The liver is normal in size, right lobe length is 14.6 cm. Normal in echogenicity, no discrete lesion is visualized in the imaged liver. No intrahepatic bile duct dilatation. The common duct is 3 mm in diameter. The gallbladder is normal. Negative sonographic Ordoñez sign. The main portal vein is patent with antegrade flow. Bilateral renal lower poles are not well seen due to bowel gas/rib shadowing. The right kidney is grossly normal, 10.2 cm in length. The left kidney is grossly normal, 9.8 cm in length. The spleen is normal, 9.8 cm in length. No free fluid in the abdomen. Impression: Normal exam. COLONOSCOPY BIOPSY [facility] Medical History (Updated 04/29/25 @ 16:42 by KRISTI Terry) Upper abdominal pain Abdominal discomfort Finger pain, right Bilateral wrist pain Family history of type 1 diabetes mellitus Frequent headaches Rash Laboratory exam ordered as part of routine general medical examination Sleep apnea Back pain Migraines Achilles tendon tear Anxiety Depression Surgical History H/O Achilles tendon repair Family History Mother Arthritis Colon cancer Father Diabetes Social History Household Members: Family Housing: House Alcohol intake: current Patient Tobacco Use Status: Never used Tobacco e-Cigarette/Vaping Use: Never Used Special hari needs: Yes service: Yes Current occupational status: employed 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, 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 Cognitive needs: No Hearing needs: No Vision needs: No Review of Systems Const Denies fatigue, Denies fever(s), Denies night sweats, Denies poor appetite and Denies weight loss ENT Reports Normal hearing present, Denies dental pain, Denies dysphagia, Denies hearing loss, Denies mouth pain, Denies odynophagia, Denies throat swelling, Denies tongue swelling and Reports other (Dentition adequate) Card Reports no additional complaints Resp Reports no additional complaints GI Details: Denies abdominal pain, Denies melena, Denies bloating, Denies hematochezia, Denies constipation, Reports GI cramping, Denies dysphagia, Denies excessive flatus, Denies early satiety, Denies heartburn, Denies diarrhea, Reports loose stools, Denies nausea, Denies odynophagia, Denies vomiting and Denies hematemesis Skin/Breast Denies pruritus, Denies lesions, Denies rash and Denies jaundice Neuro Reports Normal hearing present and Denies Abnormal speech present Endo Denies fatigue Aller/Immun Denies throat swelling and Denies tongue swelling Physical Exam Vital Signs: Last Vital Signs BP 129/59 L 04/29/25 16:32 BMI result Body Mass Index 33.2 Const General: cooperative, no acute distress, well developed and well groomed Nutritional Appearance: average body habitus and well nourished Orientation/consciousness: oriented to person, oriented to place and oriented to time Limitations: No language barrier HEENT Head: Yes normocephalic and Yes atraumatic Eyes General: appearance normal, both eyes and all related structures Pupils: Equal, round and reactive pupils present Neck Neck: Yes normal visual inspection and Yes no lymphadenopathy Thyroid: Thyroid normal Resp Effort & Inspection: normal respiratory effort and able to speak in complete sentences Auscultation: clear to auscultation bilaterally Cardio Rate: regular rate Rhythm: regular rhythm Heart sounds: Normal, physiologic split S2 sound present Peripheral pulses: radial pulses present and posterior tibial pulses present GI Inspection: No distended, No Abdominal panniculus present and Yes obesity Palpation (GI): Soft to palpation, nontender, no guarding, not rigid and No hepatosplenomegaly present Percussion: Yes normal to percussion Auscultation: normal bowel sounds Rectal Exam - Male: Yes deferred Skin General skin exam: no rashes or lesions noted, turgor normal, skin not dry, no jaundice, No spider nevi and no striae Rashes: no rashes Nails: normal Neuro General: oriented to person, oriented to place and oriented to time Cranial nerves: Yes Equal, round and reactive pupils present and Yes Normal hearing present Speech: No Abnormal speech present Extrem General: Yes normal to inspection, No clubbing, No cyanosis and No edema Psych Appearance: grossly normal and well kempt Mental Status: mental status grossly normal Speech and movement: Normal speech and movement present Affect: normal affect Attitude: cooperative Thought process: Normal thought process present and not confabulating Thought content: Normal thought content present Insight: Good insight present (Psych) Judgement: Good judgement present (Psych) Assessment & Plan Assessment & Plan (1) Alternating constipation and diarrhea: Code(s): R19.8 - Other specified symptoms and signs involving the digestive system and abdomen Category: Medical (2) Family history of colon cancer in mother: Comment: At age 45 she is just completing chemotherapy Code(s): Z80.0 - Family history of malignant neoplasm of digestive organs Category: Medical Plan - The patient is a 29-year-old male presenting with abdominal pain and gastrointestinal symptoms. - Noted an initial period with two weeks of diarrhea and discomfort following an intensified schedule; bowel movements returned to normal after three weeks. - Benefits from Dicyclomine use, with improvement in bowel consistency and pain reduction during non-severe episodes. - An elevated inflammatory marker (CRP) was discovered in prior blood work, leading to a fecal calprotectin test which was normal, thereby excluding inflammatory bowel disease. - Perplexed source of inflammation remains, potentially related to generalized arthritis, as the patient engages in a pending colonoscopy for further evaluation. He tells me that he soon will be out of the and maybe moving to [place] after July. Medications: Refilled dicyclomine 20 mg PO QID 120 tabs 6RF 30 days R19.7 - Diarrhea, unspecified Coding Level of Care Code Est Pt Level 3 (91488) Diagnoses Alternating constipation and diarrhea R19.8 Family history of colon cancer in mother Z80.0
--- OUTSIDE RECORDS SUMMARY | 2025-04-29 18:08 | XMS_ITS | Encounter Summary ---
Author Organization [facility] Address [address] [place] [address] Care Team Providers Care Rehabilitation Attendant Name Role Phone Tess Campoverde APRN Primary Care Provider Un available Encounter Details Date Type Department Care Team (Late st Contact Info) Description 11/23/2022 Scanned Document [facility] Department of Internal Medicine [place] [address] [place] [phone] Tess Campoverde APRN *need valid address Social [...] on filedocumented in this encounter Care Teams Rehabilitation Attendant Relationship Specialty Start Date End Date Tess Campoverde APRN PCP - General documented as of this encounter
--- OUTSIDE RECORDS SUMMARY | 2025-04-29 18:08 | XMS_ITS | Encounter Summary ---
Author Organization [facility] Address [address] [place] [address] Care Team Providers Care Loan Processor Name Role Phone Tess Campoverde APRN Primary Care Provider Un available Encounter Details Date Type Department Care Team (Late st Contact Info) Description 10/19/2022 Scanned Document [facility] Department of Internal Medicine [address] [phone] Swati May APRN [address] [place] [address] Social History Tobacco Use Types Packs/Day Years [...] on filedocumented in this encounter Care Teams Loan Processor Relationship Specialty Start Date End Date Tess Campoverde APRN PCP - General documented as of this encounter
--- OUTSIDE RECORDS SUMMARY | 2025-04-29 18:08 | XMS_ITS | Encounter Summary ---
Author Organization [facility] Address [address] [place] [address] Care Team Providers Care Transplant Case Manager Name Role Phone Tess Campoverde APRN Primary Care Provider Un available Reason for Visit * Reason Comments Medication Refill Encounter Details Date Type Department Care Team (Late st Contact Info) Description 01/29/2023 Refill [facility] Department of Internal Medicine [place] [address] [place] [address] Tess Campoverde APRN *need valid [...] uncontrolled documented in this encounter Care Teams Transplant Case Manager Relationship Specialty Start Date End Date Tess Campoverde APRN PCP - General documented as of this encounter
--- OUTSIDE RECORDS SUMMARY | 2025-04-29 18:08 | XMS_ITS | Encounter Summary ---
Author Organization [facility] Address [address] [place] [address] Care Team Providers Care Lab Nurse Name Role Phone Tess Campoverde APRN Primary Care Provider Un available Encounter Details Date Type Department Care Team (Late st Contact Info) Description 05/08/2023 Scanned Document [facility] Department of Internal Medicine [place] [address] [place] [phone] Tess Campoverde APRN *need valid address Social [...] on filedocumented in this encounter Care Teams Lab Nurse Relationship Specialty Start Date End Date Tess Campoverde APRN PCP - General documented as of this encounter
--- OUTSIDE RECORDS SUMMARY | 2025-04-29 18:08 | XMS_ITS | Encounter Summary ---
Author Organization [facility] Address [address] [place] [address] Care Team Providers Care Harness Inspector Name Role Phone Tess Campoverde APRN Primary Care Provider Un available Encounter Details Date Type Department Care Team (Late st Contact Info) Description 10/31/2022 Scanned Document [facility] Department of Internal Medicine [place] [address] [place] [phone] Tess Campoverde APRN *need valid address Social [...] on filedocumented in this encounter Care Teams Harness Inspector Relationship Specialty Start Date End Date Tess Campoverde APRN PCP - General documented as of this encounter
--- OUTSIDE RECORDS SUMMARY | 2025-04-29 18:08 | XMS_ITS | Encounter Summary ---
Author Organization [facility] Address [address] [place] [address] Care Team Providers Care Senior Technical Manager Name Role Phone Tess Campoverde APRN Primary Care Provider Un available Reason for Visit * Reason Comments Medication Refill Encounter Details Date Type Department Care Team (Late st Contact Info) Description 11/13/2022 Refill [facility] Department of Internal Medicine [place] [address] [place] [address] Tess Campoverde APRN *need valid [...] uncontrolled documented in this encounter Care Teams Senior Technical Manager Relationship Specialty Start Date End Date Tess Campoverde APRN PCP - General documented as of this encounter
--- OUTSIDE RECORDS SUMMARY | 2025-04-29 18:08 | XMS_ITS | Encounter Summary ---
Author Organization [facility] Address [address] [place] [address] Care Team Providers Care Mottler Machine Feeder Name Role Phone Tess Campoverde APRN Primary Care Provider Un available Encounter Details Date Type Department Care Team (Late st Contact Info) Description 04/19/2023 Scanned Document [facility] Department of Internal Medicine [place] [address] [place] [phone] Tess Campoverde APRN *need valid address Social [...] on filedocumented in this encounter Care Teams Mottler Machine Feeder Relationship Specialty Start Date End Date Tess Campoverde APRN PCP - General documented as of this encounter
--- OUTSIDE RECORDS SUMMARY | 2025-04-29 18:08 | XMS_ITS | Clinical Summary ---
Author Organization [facility] Address [address] [place] [address] Care Team Providers Care Director Of Regional Sales Name Role Phone Tess Campoverde APRN Primary Care Provider Un available Allergies No known active allergies Medications ergocalciferol (VITAMIN D2,DRISDOL) 98228 units Cap Take by mouth. 2 Active [...] of 3 - 19+ 3-dose series) 2016 Influenza Vaccine 03/06/2025 05/08/2023, 05/04/2022 COVID-19 Vaccine ( - 2023-2 5 season) 2025 HPV Vaccines (No Doses Required) Completed Pneumococcal Vaccine: Pediatric (0-5 Years) and At-Risk Patients (6 to 49 Years) Aged Out No longer eligible b ased on patient's age to complete this topic Insurance [facility] Care Teams Director Of Regional Sales Relationship Specialty Start Date End Date Tess Campoverde APRN PCP - General
--- OUTSIDE RECORDS SUMMARY | 2025-04-29 18:08 | XMS_ITS | Encounter Summary ---
Author Organization [facility] Address [address] [place] [id number] Care Team Providers Care Crisis Clinician Name Role Phone Tess Campoverde APRN Primary Care Provider Un available Encounter Details Date Type Department Care Team (Late st Contact Info) Description 07/24/2023 Scanned Document [facility] Department of Internal Medicine [place] [address] [place] [phone] Tess Campoverde APRN *need valid address Social [...] on filedocumented in this encounter Care Teams Crisis Clinician Relationship Specialty Start Date End Date Tess Campoverde APRN PCP - General documented as of this encounter
--- OUTSIDE RECORDS SUMMARY | 2025-04-29 18:08 | XMS_ITS | Encounter Summary ---
Author Organization [facility] Address [address] [place] [address] Care Team Providers Care Chief Learning Officer Name Role Phone Tess Campoverde APRN Primary Care Provider Un available Encounter Details Date Type Department Care Team (Late st Contact Info) Description 10/13/2022 Scanned Document [facility] Department of Internal Medicine [place] [address] [place] [phone] Tess Campoverde APRN *need valid address Social [...] on filedocumented in this encounter Care Teams Chief Learning Officer Relationship Specialty Start Date End Date Tess Campoverde APRN PCP - General documented as of this encounter
--- OUTSIDE RECORDS SUMMARY | 2025-04-29 18:08 | XMS_ITS | Clinical Summary ---
Author Organization [employer] [facility] Address [address] [place] [address] Care Team Providers Care Digital Pre Press Operator Name Role Phone Tess Campoverde APRN Primary Care Provider [phone] Medications Medication Sig Dispensed Refills Start Date [...] age to complete this topic Care Teams Digital Pre Press Operator Relationship Specialty Start Date End Date Tess Campoverde APRN PCP - General Nurse Practitioner 04/11/22
--- OUTSIDE RECORDS SUMMARY | 2025-04-29 18:08 | XMS_ITS | Encounter Summary ---
Author Organization [facility] Address [address] [place] [address] Care Team Providers Care Hedis Abstractor Name Role Phone Tess Campoverde APRN Primary Care Provider Un available Encounter Details Date Type Department Care Team (Late st Contact Info) Description 01/19/2023 Scanned Document [facility] Department of Internal Medicine [place] [address] [place] [phone] Tess Campoverde APRN *need valid address Social [...] on filedocumented in this encounter Care Teams Hedis Abstractor Relationship Specialty Start Date End Date Tess Campoverde APRN PCP - General documented as of this encounter
--- OUTSIDE RECORDS SUMMARY | 2025-04-29 18:08 | XMS_ITS | Encounter Summary ---
Author Organization [facility] Address [address] [place] [address] Care Team Providers Care Coin Machine Collector Name Role Phone Tess Campoverde APRN Primary Care Provider Un available Reason for Visit * Reason Comments Medication Refill Encounter Details Date Type Department Care Team (Late st Contact Info) Description 02/28/2023 Refill [facility] Department of Internal Medicine [place] [address] [place] [phone] Tess Campoverde APRN *need valid [...] unspecified documented in this encounter Care Teams Coin Machine Collector Relationship Specialty Start Date End Date Tess Campoverde APRN PCP - General documented as of this encounter
== END 2025-04-29 16:49 | disposition home or self-care (01) ==
LOC: HO.HGI 16:29
PROVIDERS: PCP Physician Assistant; Visit Provider Nurse Practitioner
DX: R19.8 Other specified symptoms and signs involving the digestive system and abdomen (principal); Z80.0 Family history of malignant neoplasm of digestive organs
CPT/HCPCS: 99213

== ENCOUNTER → 2025-04-29 16:28 | Outpatient (BNVA) | payer OTHER, SELFPAY | PROVIDERS: PCP Physician Assistant; Visit Provider Nurse Practitioner | DX: R19.8 Other specified symptoms and signs involving the digestive system and abdomen (principal); Z80.0 Family history of malignant neoplasm of digestive organs; E66.9 Obesity, unspecified; Z68.33 Body mass index [BMI] 33.0-33.9, adult | CPT/HCPCS: 99212 ==